=== PATIENT | female | born 1955 | race Caucasian/White ===

== ENCOUNTER → 2018-10-14 | Outpatient (CLI) | payer BC ==
--- NOTE | 2018-10-14 14:49 | KCIC ---
MR of the right wrist HISTORY: Acute right wrist pain. Fell 10 days ago landing on right wrist. Fracture. TECHNIQUE: Routine multiplanar sequences are obtained. FINDINGS: Comminuted fracture of the distal radius is identified. No gross displacement. Disc of the triangular fibrocartilage is intact. There is some heterogeneity at the lamina, likely degenerative, possible partial tears. The extensor carpi ulnaris tendon is surrounded by mild fluid with mild internal signal. Mild fluid within the second and third extensor compartments. Flexor tendons are intact. Median nerve unremarkable. No evidence of scapholunate or lunotriquetral ligament tear. Slight dorsal tilt of the lunate. No large joint effusion. There is intramuscular and soft tissue edema/contusion about the distal radial fracture. Subchondral cystic change and edema at the proximal medial lunate bone, may indicate ulnolunate impaction. IMPRESSION: 1. Comminuted nondisplaced fracture of the distal radius. 2. Heterogeneous signal at the lamina of the triangle fibrocartilage, at least raising the question of partial tear or sprain. 3. Mild tendon sheath fluid or tenosynovitis of extensor compartments. 4. Subchondral edema and cystic changes at the proximal medial lunate, a finding which can be associated with ulnolunate impaction. Electronically signed by: Juan Carrasco MD (10/14/2018 2:46 PM) [facility]
== END | disposition home or self-care (01) ==
LOC: KCIC MRI 08:16
PROVIDERS: ATTEND Physician Assistant Medical
DX: S52.591A Other fractures of lower end of right radius, initial encounter for closed fracture (principal); M85.641 Other cyst of bone, right hand; R60.0 Localized edema; W19.XXXA Unspecified fall, initial encounter; Y93.89 Activity, other specified; Y92.89 Other specified places as the place of occurrence of the external cause; Y99.8 Other external cause status
CPT/HCPCS: 73221

== ENCOUNTER 2020-02-11 09:45 | Inpatient (IN) | payer MEDICARE, BC ==
[~2020-02-11] VITALS: Ht 167.6 cm; Wt 95.7 kg
[2020-02-11 09:15] VITALS: BP 137/75
[~2020-02-11 09:45] MED LIST: AMIO200T4 PO; APIX5TAB PO; ASPI-630 PO; BIOT5000 PO; CA C1TAB58 PO; CRAN250C PO; CYAN-25 PO; CYCL5TAB PO; DOCU-153 PO; FENO160T PO; LACT1CAP19 PO; LISI1TAB37 PO; METO50TA6 PO; MULT1TAB68 PO; MV C PO; OMEG1CAP50 PO; OXYC1TAB15 PO; PANT40TA77 PO; POTA20TA4 PO; SELE200C PO; VITA400C37 PO; [UNRECOGNIZED DRUG - CODE] PO
--- NOTE | 2020-02-11 11:32 | NUR ---
Patient Lorena Araiza 64 year old female, admitted due to hemorrhagic pancreatitis. She's awake, alert, oriented x4, on room air; arrived via gurney by EMS. Belongings have been checked. Patient was placed on comfortable position, call light placed within reach.
[2020-02-11 11:38] VITALS: BP 141/77
[2020-02-11] MEDS ORDERED: POTASSIUM CL 20MEQ D5-0.45NACL 1,000 ML IV ONE (13:00)
[2020-02-11] MEDS ORDERED: DEXTROSE 50% 25 GM / 50ML DISP.SYRIN. IV PRN (13:00)
--- NOTE | 2020-02-11 13:30 | PDOC2 ---
CONSULT Date of Consult Date of Consult DATE: 02/11/20 TIME: 13:28 Reason for Consult Reason for Consult: Pancreatitis with possible hemorrhagic psudocyst Past Medical History Cardiovascular: HTN Musculoskeletal: low back pain, Osteoarthritis Rheumatologic: No pertinent hx Infectious disease: No pertinent hx Renal/: No pertinent hx Endocrine: No pertinent hx Past Surgical History Past Surgical History: Total knee replacement, Hysterectomy Family History Family History: High Cholestrol, Hypertension Social History ALCOHOL: none Drugs: None Current Medications Current Medications Current Medications Amiodarone HCl (Cordarone) 200 mg DAILY PO ; Start 02/12/20 at 09:00 Cyanocobalamin (Vitamin B-12) 1,000 mcg DAILY PO ; Start 02/12/20 at 09:00 Docusate Sodium (Colace) 100 mg BID PO ; Start 02/11/20 at 21:00 Lactobacillus Rhamnosus (Culturelle) 1 cap BID PO ; Start 02/11/20 at 21:00 Metoprolol Tartrate (Lopressor) 50 mg BID PO ; Start 02/11/20 at 21:00 Potassium Chloride/Dextrose/ Sod Cl 1,000 ml @ 80 mls/hr 1X ONCE IV ; Start 02/11/20 at 13:00; Stop 02/12/20 at 01:29 Pantoprazole Sodium (PROTONIX VIAL for IV PUSH) 40 mg DAILYAC IVP ; Start 02/12/20 at 07:30 Fentanyl Citrate (Fentanyl 2ml Vial) 50 mcg PRN Q3HRS PRN IVP PAIN; Start 02/11/20 at 13:00 Ondansetron HCl (Zofran) 4 mg PRN Q4HRS PRN IVP NAUSEA/VOMITING; Start 02/11/20 at 13:00 Insulin Human Lispro (HumaLOG) 0-7 UNITS Q6HRS SQ ; Start 02/11/20 at 18:00 Dextrose (Dextrose 50%-Water Syringe) 12.5 gm PRN Q15MIN PRN IV SEE COMMENTS; Start 02/11/20 at 13:00 Active Scripts Active Culturelle (Lactobacillus Rhamnosus Gg) 1 Each Cap.sprink 1 Cap PO BID 30 Days Pantoprazole Sodium (Pantoprazole Sodium) 40 Mg Tablet.dr 40 Mg PO DAILYAC 30 Days Dok (Docusate Sodium) 100 Mg Capsule 100 Mg PO BID 30 Days Percocet 5-325 Mg Tablet (Oxycodone/Acetaminophen) 1 Each Tablet 1 Tab PO PRN Q4HRS PRN 7 Days Metoprolol Tartrate 50 Mg Tablet 50 Mg PO BID 30 Days Amiodarone Hcl 200 Mg Tablet 200 Mg PO DAILY 30 Days Eliquis (Apixaban) 5 Mg Tablet 5 Mg PO BID 30 Days Reported Vitamin E (Vitamin E Acetate) 400 Unit Capsule 400 Unit PO TWICE WEEKLY Biotin 5,000 Mcg Tab.rapdis 10,000 Mcg PO TWICE WEEKLY Calcium Magnesium Caplet (Ca Carb & Gluc/Mag Ox & Gluc) 1 Each Tablet 1 Tab PO DAILY 30 Days Selenium 200 Mcg Capsule 1 Cap PO DAILY 30 Days Fish Oil 1,000 Mg Softgel ([place]-3 Fatty Acids/Fish Oil) 1 Each Capsule 4 Cap PO DAILY 30 Days Cranberry (Cranberry Extract) 250 Mg Capsule 250 Mg PO DAILY Stress Formula (Multivits,Stress Formula) 1 Each Tablet 1 Each PO DAILY Vitamin B-12 (Cyanocobalamin (Vitamin B-12)) 1,000 Mcg Tablet 1 Tab PO DAILY 30 Days Abc Complete Senior Women Cplt (Bt-Tutm-Lvlc/Iron/Folic/K1/Lut) 1 Each Tablet 1 Each PO DAILY Lysine 1,000 Mg Tablet 1,000 Mg PO DAILY Aspirin 81 Mg Tab.chew 1 Tab PO DAILY Fenofibrate 160 Mg Tablet 1 Tab PO DAILY Allergies Allergies: Coded Allergies: No Known Drug Allergies (Unverified , 01/13/20) Vitals VITALS Vital Signs Date Time Temp Pulse Resp B/P (MAP) Pulse Ox O2 Delivery O2 Flow Rate FiO2 02/11/20 11:38 98.2 78 16 141/77 (98) 96 Room Air 98.2 Assessment/Plan Assessment/Plan Pancreatitis- with possible pseudocyst bleed Plan hold eliquis serial CBC TPN surgery and IR consultsfor possible embolization and/or eventual drainage NANY DIAZ MD Feb 11, 2020 13:30
--- NOTE | 2020-02-11 13:33 | HP ---
ADMIT DATE: 02/11/2020 HISTORY OF PRESENT ILLNESS: The patient is a 64-year-old female patient who presented to the Emergency Room of [facility] with a complaint of severe chest pain, mostly in the left upper quadrant and epigastric area that is aggravated by moving and taking a deep breath that she described as a knife stick. She apparently has been followed before by Dr. Nobles, has had a cholecystectomy done on 01/13/2020. Apparently, at that time, she was also diagnosed with pancreatitis and has had also cardiac arrhythmias, followed by Dr. Hayes. She has had monitoring specialist and that she has mailed to Dr. Hayes's office and she was supposed to see him on 03/05/2020. She was basically evaluated in the Emergency Room of [facility] and her lab work showed that she has a normochromic normocytic anemia. Her chemistry showed her serum lipase was extremely high at 2400 and D-dimer was high at 5.39. Urinalysis was unremarkable and showed only mild proteinuria and hematuria, but no leukocyturia. Her toxic screen was essentially negative. While in the Emergency Room, she has had chest x-ray which showed no confluent infiltrate, no evidence of obstruction and a 3 mm left upper pole renal calculus. She did have CT scan of the chest, abdomen and pelvis with contrast, finding showed that there is a heterogeneously hypoattenuating collection occupies the site of the pancreatic duct and tail, consistent with hemorrhagic pancreatitis. It measures 14 x 7 cm. Actually, there is mild mass effect on the adjacent greater curvature of the stomach. The splenic vein is decompressed, but remains patent. Normal enhancing pancreatic along the head, but the remainder is hypoenhancing or difficult to identify. There is no clear pseudoaneurysm. Another small fluid collection along the lateral aspect of the gastric greater curvature measures 5 x 2.3 cm. There is also secondary wall thickening of the colonic splenic flexure. The gallbladder is surgically absent. The common duct measures 9 mm, it tapers normally distally. The adrenal glands are unremarkable. Left renal calculus measures 5 mm. The right kidney is unremarkable. There are no pathologically enlarged lymph nodes. The appendix is at the upper limit of normal caliber. There is small amount of adjacent fluid, but this is likely secondary to small pelvic ascites. The uterus is surgically absent. There is no small-bowel obstruction. The CT scan of the chest showed no pulmonary embolism or aortic dissection or aneurysm. Findings are consistent with distal esophagitis and, therefore, the patient was transferred to [facility] to consult the Gastroenterology team. PAST MEDICAL HISTORY: Significant for hypertension, chronic low back pain, osteoarthritis, chronic kidney disease, and hyperlipidemia. She has also had gallstone pancreatitis. PAST SURGICAL HISTORY: Significant for right total knee arthroplasty, back surgery, total abdominal hysterectomy, bilateral salpingo-oophorectomy, left shoulder surgery, cholecystectomy. ALLERGIES: She apparently has no known drug allergies. MEDICATIONS: She is currently on following medications: She is on apixaban 5 mg twice a day, amiodarone 200 mg twice a day, fenofibrate 160 mg daily, omega-3 fatty acid fish oil 4 capsules daily, she is on metoprolol tartrate 50 mg twice a day, aspirin 81 mg once a day, oxycodone/APAP 5/325 one tablet every 4 hours, she is on calcium carbonate one tablet daily, selenium 200 mcg capsules once a day, niacin 1000 mg once a day, Colace 100 mg twice a day, Protonix 40 mg daily, lactobacillus rhamnosus 1 capsule twice a day, Biotin 5000 mcg once a day, she is on cyanocobalamin 1000 mcg tablet once a day, vitamin D 400 units twice a week, multivitamin stress formula one tablet once a day, ABC Complete Senior Women one tablet once a day, cranberry extract 250 mg once a day. FAMILY HISTORY: She has one brother younger, has diabetes. One sister younger and healthy. Father at the age of 81 because of Alzheimer disease. Mother at age of 68 because of complication of diabetes. SOCIAL HISTORY: She is , has 2 daughters. She never smoked, does not drink alcohol or use any recreational drugs. She worked at the [employer] at [place] for 34 years. She is currently retired. REVIEW OF SYSTEMS: As per history of present illness. PHYSICAL EXAMINATION: GENERAL: On arrival to the Emergency Room of [facility], she was somewhat pale, but no jaundice, cyanosis or thyromegaly. No jugular venous distension. No lower limb edema. VITAL SIGNS: Her heart rate was 87, blood pressure was 144/75, temperature was 98.5, respiratory rate was 18, and oxygen saturation 100% on room air. HEAD, EYES, EARS, NOSE AND THROAT: Showed normocephalic, atraumatic. NECK: Supple. HEART: Showed normal first and second heart sounds. No gallop, rub or murmur. CHEST: Shows central trachea, equal bilateral expansion, air entry, vesicular sounds. I could not appreciate any crepitation or rhonchi. ABDOMEN: Distended with tenderness mostly in the left upper quadrant. No masses. No palpable pulsatile masses. Recent surgical scars are healing well. Did have rebound in the left upper quadrant. NEUROLOGIC: She is awake, alert, responding appropriately. All cranial nerves intact. EXTREMITIES: She moves extremities without difficulty. Psychologically, she is somewhat anxious; however, the judgment and mood are normal. LABORATORY DATA: Her EKG showed that she was in sinus rhythm at a rate of 79 beats per minute with occasional PVCs and PACs. No finding of acute STEMI. Her imaging studies; CT scan of the chest, abdomen and pelvis basically showed the patient's finding consistent with hemorrhagic pancreatitis heterogenous hypoattenuating collection occupying the site of the pancreatic body and tail and measures 14 x 7 cm. She has secondary inflammation of the colon, splenic flexure on the greater curvature of the stomach and splenic vein is compressed, but patent. No pulmonary embolism, no aortic dissection or aneurysm. Finding was consistent with distal esophagitis. There is mild extrahepatic biliary dilatation, status post cholecystectomy. PLAN: My plan is obviously to keep her n.p.o., start her on IV fluid and IV pain medication as well as Protonix. I will consult the Gastroenterology team as well as the trolley operator. BRIE RODRIGUEZ MD DR: NOELLE/hector JOB#: [id number] / [id number]
[2020-02-11] MEDS: TPN PER PHARMACY MC PRN (14:27)
[2020-02-11] MEDS: IV NORMAL SALINE 1000ML BAG 1,000 ML IV SCH (14:30)
--- NOTE | 2020-02-11 14:32 | NUR ---
Pharmacy TPN Dosing Note S: MICK CAMPOS is a 64 year old F Currently receiving Central Continuous TPN started 02/11/20 B:Pertinent PMH: NPO, Pancreatitis Current diet: NPO LABS: Sodium: 140 Potassium: 4.0 Chloride: 104 Calcium: 8.7 Corrected Calcium: 9.34 Magnesium: 1.9 CO2: 27 SCr: 1.1 Glucose: 148 Albumin: 3.2 AST: 35 ALT: 24 TPN FORMULA: TPN TYPE: Central Continuous AMINO ACIDS: 60 gm DEXTROSE: 195 gm LIPIDS: 20 gm SODIUM CHLORIDE: 90 mEq SODIUM ACETATE: - mEq SODIUM PHOSPHATE: - mmol POTASSIUM CHLORIDE: 50 mEq POTASSIUM ACETATE: - mEq POTASSIUM PHOSPHATE: 13.6 mmol MAGNESIUM: 10 mEq CALCIUM: 10 mEq INSULIN: - units MULTIPLE VITAMIN: 10 ml TRACE ELEMENTS: 1 ml ml(s) TPN PLAN: 02/10 AM Labs from [facility] R: Begin TPN tonight at 2200. Will monitor electrolytes, glucose, and tolerance to TPN. KEYUR LAMAR [facility], 02/11/20 [id number]
[2020-02-11 15:30] VITALS: BP 139/75
--- NOTE | 2020-02-11 16:24 | NUR ---
Called lab at 1624, asked about labs to be drawn. This nurse was told that another safety security officer is coming at 1700 since they were unable to get specimen from the patient earlier. Notified that a PICC line will be placed and will need test results.
--- NOTE | 2020-02-11 16:53 | CONS ---
DATE OF CONSULTATION: 02/11/2020 REASON FOR CONSULTATION: Hemorrhagic pancreatitis. HISTORY OF PRESENT ILLNESS: This 64-year-old female, whose past medical history is significant for organic heart disease, pernicious anemia, hyperlipidemia, recent pancreatitis requiring laparoscopic cholecystectomy, was admitted with increasing abdominal and chest pain, subsequently found on imaging to have pancreatic pseudocyst with possible pseudoaneurysm or fluid collection, and admitted due to possible gastric outlet obstruction with inability to tolerate oral, nausea, and vomiting as well as pain with inspiration. Imaging was reviewed from [facility], not presently in front of me at the time of dictation, but a large fluid collection was encountered. The patient's vital signs presently are stable. She will be made [id number] with consultations with Surgery and with Interventional Radiology in the next 24-48 hours to help with the assist in management of the findings with possible embolization of the pseudoaneurysm at present at some point. She otherwise is comfortable and has lost 15 pounds due to poor oral intake and is relieved that an explanation has been found. PAST MEDICAL/SURGICAL HISTORY: Significant for organic heart disease, pernicious anemia, pancreatitis, status post laparoscopic cholecystectomy as well as hyperlipidemia. ALLERGIES: None. MEDICATIONS: On admission include amiodarone, Eliquis, aspirin, biotin, docusate, fenofibrate, lactobacillus, lysine, metoprolol, omega 3, pantoprazole, and selenium. SOCIAL HISTORY: She is retired; does not drink or smoke. FAMILY HISTORY: Noncontributory. REVIEW OF SYSTEMS: As above. PHYSICAL EXAMINATION: GENERAL: Reveals a thin female. VITAL SIGNS: Afebrile, temperature 98.2, pulse 78, respiration 18, and blood pressure 141/77. LUNGS: Clear. CARDIOVASCULAR: Reveals S1, S2 without S3, S4, or appreciable murmur. ABDOMEN: Reveals a soft abdomen with epigastric tenderness to deep palpation without appreciable bruits. EXTREMITIES: Reveal no cyanosis, clubbing, or edema. LABORATORY STUDIES: Pending here with repeat hemoglobin from her [facility] admission. IMPRESSION AND PLAN: Pancreatitis with possible pseudocyst and pseudoaneurysm. We will recommend [id number], blood thinners, TPN, Interventional Radiology and surgical consultations for additional management as embolization of the pseudoaneurysm present will be needed at some point as well as potential drainage, which could be performed either here at this hospital or potentially [facility], which is a tertiary referral center. NANY DIAZ MD DR: Fatou JOB#: [id number] / [id number]
[2020-02-11] MEDS: fentaNYL PF VIAL 100 MCG/2 ML VIAL IVP PRN ×2 (16:54→22:30)
--- NOTE | 2020-02-11 17:21 | PDOC2 ---
CONSULT Date of Consult Date of Consult DATE: 02/11/20 TIME: 17:16 Reason for Consult Reason for Consult: pancreatitis Referring Physician Referring Physician: Dr Nobles Identification/Chief Complaint Chief Complaint epigastric pain Source Source: Chart review, Patient History of Present Illness Reason for Visit: Lorena is a 64 yo female I know from recent (01/13/20) cholecystectomy for gallstone pancreatitis. She did well post op and I saw her in follow up in the office. She has had some pain and when seen in the [facility] ED a CT showed pancreatitis Past Medical History Cardiovascular: HTN Musculoskeletal: low back pain, Osteoarthritis Rheumatologic: No pertinent hx Infectious disease: No pertinent hx Renal/: No pertinent hx Endocrine: No pertinent hx Past Surgical History Past Surgical History: Cholecystectomy, Total knee replacement, Hysterectomy Family History Family History: High Cholestrol, Hypertension Social History No ALCOHOL: none Drugs: None Current Medications Current Medications Current Medications Amiodarone HCl (Cordarone) 200 mg DAILY PO ; Start 02/12/20 at 09:00 Cyanocobalamin (Vitamin B-12) 1,000 mcg DAILY PO ; Start 02/12/20 at 09:00 Docusate Sodium (Colace) 100 mg BID PO ; Start 02/11/20 at 21:00 Lactobacillus Rhamnosus (Culturelle) 1 cap BID PO ; Start 02/11/20 at 21:00; Stop 02/11/20 at 14:34; Status DC Metoprolol Tartrate (Lopressor) 50 mg BID PO ; Start 02/11/20 at 21:00 Potassium Chloride/Dextrose/ Sod Cl 1,000 ml @ 80 mls/hr 1X ONCE IV Last administered on 02/11/20at 13:43; Start 02/11/20 at 13:00; Stop 02/12/20 at 01:29 Pantoprazole Sodium (PROTONIX VIAL for IV PUSH) 40 mg DAILYAC IVP ; Start 02/12/20 at 07:30 Fentanyl Citrate (Fentanyl 2ml Vial) 50 mcg PRN Q3HRS PRN IVP PAIN Last administered on 02/11/20at 16:54; Start 02/11/20 at 13:00 Ondansetron HCl (Zofran) 4 mg PRN Q4HRS PRN IVP NAUSEA/VOMITING; Start 02/11/20 at 13:00 Insulin Human Lispro (HumaLOG) 0-7 UNITS Q6HRS SQ ; Start 02/11/20 at 18:00 Dextrose (Dextrose 50%-Water Syringe) 12.5 gm PRN Q15MIN PRN IV SEE COMMENTS; Start 02/11/20 at 13:00 Info (Tpn Per Pharmacy) 1 each PRN DAILY PRN MC SEE COMMENTS Last administered on 02/11/20at 14:27; Start 02/11/20 at 15:00 Sodium Chloride 1,000 ml @ 75 mls/hr [id number] IV ; Start 02/11/20 at 14:30 Sodium Chloride 90 meq/Potassium Chloride 50 meq/ Potassium Phosphate 13.6 mmol/Magnesium Sulfate 10 meq/ Calcium Gluconate 10 meq/ Multivitamins 10 ml/Chromium/ Copper/Manganese/ Seleni/Zn 1 ml/ Total Parenteral Nutrition/Amino Acids/Dextrose/ Fat Emulsion Intravenous 1,512 ml @ 63 mls/hr TPN CONT IV ; Start 02/11/20 at 22:00; Stop 02/12/20 at 21:59 Active Scripts Active Culturelle (Lactobacillus Rhamnosus Gg) 1 Each Cap.sprink 1 Cap PO BID 30 Days Pantoprazole Sodium (Pantoprazole Sodium) 40 Mg Tablet.dr 40 Mg PO DAILYAC 30 Days Dok (Docusate Sodium) 100 Mg Capsule 100 Mg PO BID 30 Days Percocet 5-325 Mg Tablet (Oxycodone/Acetaminophen) 1 Each Tablet 1 Tab PO PRN Q4HRS PRN 7 Days Metoprolol Tartrate 50 Mg Tablet 50 Mg PO BID 30 Days Amiodarone Hcl 200 Mg Tablet 200 Mg PO DAILY 30 Days Eliquis (Apixaban) 5 Mg Tablet 5 Mg PO BID 30 Days Reported Vitamin E (Vitamin E Acetate) 400 Unit Capsule 400 Unit PO TWICE WEEKLY Biotin 5,000 Mcg Tab.rapdis 10,000 Mcg PO TWICE WEEKLY Calcium Magnesium Caplet (Ca Carb & Gluc/Mag Ox & Gluc) 1 Each Tablet 1 Tab PO DAILY 30 Days Selenium 200 Mcg Capsule 1 Cap PO DAILY 30 Days Fish Oil 1,000 Mg Softgel ([place]-3 Fatty Acids/Fish Oil) 1 Each Capsule 4 Cap PO DAILY 30 Days Cranberry (Cranberry Extract) 250 Mg Capsule 250 Mg PO DAILY Stress Formula (Multivits,Stress Formula) 1 Each Tablet 1 Each PO DAILY Vitamin B-12 (Cyanocobalamin (Vitamin B-12)) 1,000 Mcg Tablet 1 Tab PO DAILY 30 Days Abc Complete Senior Women Cplt (Gc-Dhlq-Bexg/Iron/Folic/K1/Lut) 1 Each Tablet 1 Each PO DAILY Lysine 1,000 Mg Tablet 1,000 Mg PO DAILY Aspirin 81 Mg Tab.chew 1 Tab PO DAILY Fenofibrate 160 Mg Tablet 1 Tab PO DAILY Allergies Allergies: Coded Allergies: No Known Drug Allergies (Unverified , 01/13/20) ROS Review of System negative with exception of present complaints Physical Exam General: Alert, Oriented X3, No acute distress HEENT: Atraumatic Lungs: Normal air movement Heart: Regular rate Abdomen: Soft, Other (minimally TTP in the epigastrium) Vitals VITALS Vital Signs Date Time Temp Pulse Resp B/P (MAP) Pulse Ox O2 Delivery O2 Flow Rate FiO2 02/11/20 16:54 18 94 02/11/20 15:30 98.0 84 139/75 (96) Room Air 98.0 Labs Labs ordered, results PND Images Images CT done @ [facility] reviewed Assessment/Plan Assessment/Plan pancreatitis s/p cholecystectomy no acute surgical recs gut rest TPN as per GI serial labs if indications of hemorrhagic changes as IR to evaluate will follow Thanks for consult VINAY SANCHEZ MD Feb 11, 2020 17:21
[2020-02-11 17:27] LABS: HEMATOCRIT 31.6 % (36.0-47.0); HEMOGLOBIN 10.8 g/dL (12.0-15.5); RED BLOOD COUNT 3.39 x10^6/uL (3.50-5.40); RED CELL DISTRIBUTION WIDTH 13.8 % (11.5-14.5)
[2020-02-11 17:40] LABS: CALCIUM 7.9 mg/dL (8.5-10.1); GFR 55.6; POTASSIUM 3.6 mmol/L (3.5-5.1)
[2020-02-11 17:46] LABS: ALBUMIN 2.7 g/dL (3.4-5.0); ALBUMIN/GLOBULIN RATIO 0.8 (1.0-1.7); TOTAL BILIRUBIN 0.7 mg/dL (0.2-1.0); TOTAL PROTEIN 6.1 g/dL (6.4-8.2)
[2020-02-11] MEDS: INSULIN LISPRO 300 UNITS/3 ML VIAL. SQ SCH (18:00)
[2020-02-11 19:00] VITALS: BP 132/75
[2020-02-11] MEDS: DOCUSATE SODIUM 100 MG CAPSULE. PO SCH (19:49)
[2020-02-11] MEDS: METOPROLOL TART IMMED RELEASE 50 MG TABLET. PO SCH (21:00)
[2020-02-11] MEDS ORDERED: LACTOBACILLUS RHAMNOSUS GG 1 CAPSULE. PO SCH (21:00)
[2020-02-11] MEDS ORDERED: TOTAL PARENTERAL NUTRITION 1,424.9614 ML, AMINO ACID 15% 60 GM, DEXTROSE 70 % IN WATER ... IV SCH (22:00)
[2020-02-11 23:20] VITALS: BP 120/63
--- NOTE | 2020-02-11 23:27 | RAD ---
CHEST AP ONLY INDICATION: Reason: line placement #[id number] / Spl. Instructions: / History: . COMPARISON STUDY: 01/12/2020. FINDINGS: Right PICC courses into the neck and off the superior [id number] Lungs: Low lung volume. Minimal bibasilar opacities. The tracheobronchial tree and hilar structures are normal. Pleura: No pleural effusion or pneumothorax. Heart and Mediastinum: The cardiomediastinal silhouette is normal. The great vessels of the thorax are normal. IMPRESSION: Right PICC courses into the neck and off the superior [id number]. PICC position was called to the patient's nurse, Bunny, at 11:20 PM on 02/11/2020. She reports that this has already been repositioned with additional radiograph pending. Electronically signed by: Delfin Todd MD (02/11/2020 11:24 PM) [id number]
--- NOTE | 2020-02-12 02:47 | RAD ---
EXAM: CHEST 1 VIEW History: PICC line placement COMPARISON: 02/11/2020 TECHNIQUE: Single portable radiograph of the chest Findings/ impression: The cardiac silhouette is unremarkable. The right-sided PICC line tip projects in the right subclavian region. Minimal bibasilar lung atelectasis or infiltrates. Patient's nurse was informed of the PICC line position. Electronically signed by: Emir Borges MD (02/12/2020 2:44 AM) [id number]
[2020-02-12] MEDS: IV NORMAL SALINE 1000ML BAG 1,000 ML IV SCH ×2 (02:55→16:59)
[2020-02-12 03:05] VITALS: BP 121/63
[2020-02-12 05:51] LABS: MAGNESIUM 1.7 mg/dL (1.8-2.4); PHOSPHORUS 2.7 mg/dL (2.6-4.7)
[2020-02-12 05:58] LABS: ALBUMIN 2.5 g/dL (3.4-5.0); ALBUMIN/GLOBULIN RATIO 0.9 (1.0-1.7); CALCIUM 7.8 mg/dL (8.5-10.1); CREATININE 0.9 mg/dL (0.6-1.0); GFR 62.8; POTASSIUM 3.8 mmol/L (3.5-5.1); TOTAL BILIRUBIN 0.7 mg/dL (0.2-1.0); TOTAL PROTEIN 5.3 g/dL (6.4-8.2)
[2020-02-12] MEDS: INSULIN LISPRO 300 UNITS/3 ML VIAL. SQ SCH ×4 (06:00→18:00)
[2020-02-12 07:30] VITALS: BP 120/69
[2020-02-12] MEDS: fentaNYL PF VIAL 100 MCG/2 ML VIAL IVP PRN ×4 (08:47→22:38)
[2020-02-12] MEDS: PANTOPRAZOLE IV PUSH 40 MG VIAL. IVP SCH (08:51)
[2020-02-12] MEDS: CYANOCOBALAMIN (VITAMIN B-12) 1,000 MCG TABLET. PO SCH (08:51)
[2020-02-12] MEDS: METOPROLOL TART IMMED RELEASE 50 MG TABLET. PO SCH ×2 (08:52→21:00)
[2020-02-12] MEDS: DOCUSATE SODIUM 100 MG CAPSULE. PO SCH ×2 (08:52→20:56)
[2020-02-12] MEDS: AMIODARONE HCL 200 MG TABLET. PO SCH (08:52)
--- NOTE | 2020-02-12 09:46 | RAD ---
AP chest x-ray COMPARISON: Chest x-ray February 12, 2020 1:40 AM. HISTORY: PICC line placement. FINDINGS: Right PICC line tip distal SVC, the guidewire still remains within the catheter at the subclavian segment. Heart size normal. No no pneumothorax or pulmonary opacities. There could be a small left pleural effusion along the left lateral diaphragm blunting the angle new from the prior study. Bones are unremarkable. IMPRESSION: 1. Small left pleural effusion along the lateral diaphragm. 2. Right PICC line as described above. These results were called to patient's sixth floor nurse [facility] at 9:40 AM February 12, 2020. Electronically signed by: Jaspal Farmer MD (02/12/2020 9:43 AM) [facility]
--- NOTE | 2020-02-12 10:56 | PN ---
DATE: 02/12/2020 SUBJECTIVE: The patient is resting slightly propped up in bed comfortably. Denied any abdominal pain. She has had a double lumen PICC line placed successfully and will be started on TPN. PHYSICAL EXAMINATION: GENERAL: On examining her, she looked well and was clearly in no apparent respiratory distress and pale. No jaundice, cyanosis or thyromegaly. No jugular venous distention. No limb edema. VITAL SIGNS: Her heart rate was 86, blood pressure was 120/69, temperature was 98, respiratory rate was 18, and oxygen saturation was 95% on room air. HEAD, EYES, EARS, NOSE AND THROAT: Showed normocephalic, atraumatic. NECK: Supple. HEART: Showed normal first and second heart sounds. No gallop or murmur. CHEST: Clear to auscultation. No crepitation or rhonchi. ABDOMEN: Distended, soft, nontender. NEUROLOGIC: She is grossly intact. Her intake and output are incompletely recorded. LABORATORY DATA: Her lab work this morning showed a serum sodium 138, potassium 3.8, chloride 105, bicarbonate 22, anion gap of 11, BUN 9, creatinine 0.9, estimated GFR was 62 mL per minute. Her glucose 128, calcium was 7.8, phosphorus 2.7, magnesium was 1.7. Total bilirubin, AST, ALT are normal. Total protein 5.3, albumin 2.6. Serum lipase was high at 489 and triglycerides were 68. As of yesterday, her white cell count was 8000, hemoglobin 11, hematocrit 31, MCV 93, and platelet count 264,000. ASSESSMENT: Hemorrhagic pancreatitis with pseudocyst and pseudoaneurysm. She was seen by Dr. Nobles and the plan is to keep her n.p.o. She is now on TPN. She did have a PICC line placed successfully. Meanwhile, we will continue with pain management. She is on fentanyl 50 mcg every 3 hours. She is also on Protonix IV daily and amiodarone for her atrial fibrillation. BRIE RODRIGUEZ MD DR: NOELLE/hector JOB#: [id number] / [id number]
[2020-02-12 11:01] LABS: HEMATOCRIT 29.5 % (36.0-47.0); HEMOGLOBIN 9.9 g/dL (12.0-15.5); RED BLOOD COUNT 3.1 x10^6/uL (3.50-5.40)
[2020-02-12 11:28] VITALS: BP 127/70
[2020-02-12] MEDS: TPN PER PHARMACY MC PRN ×2 (11:43→12:53)
--- NOTE | 2020-02-12 12:55 | NUR ---
Pharmacy TPN Dosing Note S: MICK CAMPOS is a 64 year old F Currently receiving Central Continuous TPN started 02/11/20 B:Pertinent PMH: NPO, Pancreatitis Height: 5 feet, 6 inches Weight: 96.1 kg Current diet: NPO LABS: Sodium: 138 Potassium: 3.8 Chloride: 105 Calcium: 7.8 Corrected Calcium: 9.00 Magnesium: 1.7 CO2: 22 SCr: 1.1 Glucose: 128 Albumin: 2.5 AST: 35 ALT: 24 TPN FORMULA: TPN TYPE: Central Continuous AMINO ACIDS: 60 gm DEXTROSE: 195 gm LIPIDS: 20 gm SODIUM CHLORIDE: 110 mEq SODIUM ACETATE: - mEq SODIUM PHOSPHATE: - mmol POTASSIUM CHLORIDE: - mEq POTASSIUM ACETATE: 70 mEq POTASSIUM PHOSPHATE: 17 mmol MAGNESIUM: 14 mEq CALCIUM: 10 mEq INSULIN: - units MULTIPLE VITAMIN: 10 ml TRACE ELEMENTS: 1 ml ml(s) TPN PLAN: INCREASE NACL TO 110 MEQ, KACETATE TO 70 MEQ, KPHOS TO 17 MEQ, MAGSO4 14 MEQ R: Continue TPN AT 63 ML/HR Will monitor electrolytes, glucose, and tolerance to TPN. ROGERS PAGE [facility], 02/12/20 [id number]
--- NOTE | 2020-02-12 13:20 | PDOC2 ---
CONSULT Date of Consult Date of Consult DATE: 02/12/20 TIME: 13:20 Reason for Consult Reason for Consult: Paroxysmal atrial fibrillation Referring Physician Referring Physician: Dr. Howard Identification/Chief Complaint Chief Complaint Epigastric pain Source Source: Chart review, Patient History of Present Illness Reason for Visit: 64-year-old female who recently underwent cholecystectomy on 01/13/2020 presented to [facility] with epigastric and abdominal pain. CT scan showed hemorrhagic pancreatitis and has she was transferred to [facility] for further evaluation by general surgery and gastroenterology teams. She was diagnosed with paroxysmal atrial fibrillation last admission and was placed on amiodarone for rhythm maintenance and Eliquis for stroke prophylaxis. She presently denied any chest pain, orthopnea, palpitations or syncope. Past Medical History Cardiovascular: AFIB, HTN Musculoskeletal: low back pain, Osteoarthritis Rheumatologic: No pertinent hx Infectious disease: No pertinent hx Renal/: No pertinent hx Endocrine: No pertinent hx Past Surgical History Past Surgical History: Cholecystectomy, Total knee replacement, Hysterectomy Family History Family History: High Cholestrol, Hypertension Social History No ALCOHOL: none Drugs: None Current Medications Current Medications Current Medications Amiodarone HCl (Cordarone) 200 mg DAILY PO Last administered on 02/12/20at 08:52; Start 02/12/20 at 09:00 Cyanocobalamin (Vitamin B-12) 1,000 mcg DAILY PO Last administered on 02/12/20at 08:51; Start 02/12/20 at 09:00 Docusate Sodium (Colace) 100 mg BID PO Last administered on 02/12/20at 08:52; Start 02/11/20 at 21:00 Lactobacillus Rhamnosus (Culturelle) 1 cap BID PO ; Start 02/11/20 at 21:00; Stop 02/11/20 at 14:34; Status DC Metoprolol Tartrate (Lopressor) 50 mg BID PO Last administered on 02/12/20at 08:52; Start 02/11/20 at 21:00 Potassium Chloride/Dextrose/ Sod Cl 1,000 ml @ 80 mls/hr 1X ONCE IV Last administered on 02/11/20at 13:43; Start 02/11/20 at 13:00; Stop 02/12/20 at 01:29; Status DC Pantoprazole Sodium (PROTONIX VIAL for IV PUSH) 40 mg DAILYAC IVP Last administered on 02/12/20at 08:51; Start 02/12/20 at 07:30 Fentanyl Citrate (Fentanyl 2ml Vial) 50 mcg PRN Q3HRS PRN IVP PAIN Last administered on 02/12/20at 11:38; Start 02/11/20 at 13:00 Ondansetron HCl (Zofran) 4 mg PRN Q4HRS PRN IVP NAUSEA/VOMITING; Start 02/11/20 at 13:00 Insulin Human Lispro (HumaLOG) 0-7 UNITS Q6HRS SQ ; Start 02/11/20 at 18:00 Dextrose (Dextrose 50%-Water Syringe) 12.5 gm PRN Q15MIN PRN IV SEE COMMENTS; Start 02/11/20 at 13:00 Info (Tpn Per Pharmacy) 1 each PRN DAILY PRN MC SEE COMMENTS Last administered on 02/12/20at 12:53; Start 02/11/20 at 15:00 Sodium Chloride 1,000 ml @ 75 mls/hr [id number] IV Last administered on 02/12/20at 02:55; Start 02/11/20 at 14:30 Sodium Chloride 90 meq/Potassium Chloride 50 meq/ Potassium Phosphate 13.6 mmol/Magnesium Sulfate 10 meq/ Calcium Gluconate 10 meq/ Multivitamins 10 ml/Chromium/ Copper/Manganese/ Seleni/Zn 1 ml/ Total Parenteral Nutrition/Amino Acids/Dextrose/ Fat Emulsion Intravenous 1,512 ml @ 63 mls/hr TPN CONT IV ; Start 02/11/20 at 22:00; Stop 02/12/20 at 21:59 Sodium Chloride 110 meq/Potassium Acetate 70 meq/ Potassium Phosphate 17 mmol/ Magnesium Sulfate 14 meq/Calcium Gluconate 10 meq/ Multivitamins 10 ml/Chromium/ Copper/Manganese/ Seleni/Zn 1 ml/ Total Parenteral Nutrition/Amino Acids/Dextrose/ Fat Emulsion Intravenous 1,512 ml @ 63 mls/hr TPN CONT IV ; Start 02/12/20 at 22:00; Stop 02/13/20 at 21:59 Active Scripts Active Culturelle (Lactobacillus Rhamnosus Gg) 1 Each Cap.sprink 1 Cap PO BID 30 Days Pantoprazole Sodium (Pantoprazole Sodium) 40 Mg Tablet.dr 40 Mg PO DAILYAC 30 Days Dok (Docusate Sodium) 100 Mg Capsule 100 Mg PO BID 30 Days Percocet 5-325 Mg Tablet (Oxycodone/Acetaminophen) 1 Each Tablet 1 Tab PO PRN Q4HRS PRN 7 Days Metoprolol Tartrate 50 Mg Tablet 50 Mg PO BID 30 Days Amiodarone Hcl 200 Mg Tablet 200 Mg PO DAILY 30 Days Eliquis (Apixaban) 5 Mg Tablet 5 Mg PO BID 30 Days Reported Vitamin E (Vitamin E Acetate) 400 Unit Capsule 400 Unit PO TWICE WEEKLY Biotin 5,000 Mcg Tab.rapdis 10,000 Mcg PO TWICE WEEKLY Calcium Magnesium Caplet (Ca Carb & Gluc/Mag Ox & Gluc) 1 Each Tablet 1 Tab PO DAILY 30 Days Selenium 200 Mcg Capsule 1 Cap PO DAILY 30 Days Fish Oil 1,000 Mg Softgel ([place]-3 Fatty Acids/Fish Oil) 1 Each Capsule 4 Cap PO DAILY 30 Days Cranberry (Cranberry Extract) 250 Mg Capsule 250 Mg PO DAILY Stress Formula (Multivits,Stress Formula) 1 Each Tablet 1 Each PO DAILY Vitamin B-12 (Cyanocobalamin (Vitamin B-12)) 1,000 Mcg Tablet 1 Tab PO DAILY 30 Days Abc Complete Senior Women Cplt (Gr-Wwhr-Brut/Iron/Folic/K1/Lut) 1 Each Tablet 1 Each PO DAILY Lysine 1,000 Mg Tablet 1,000 Mg PO DAILY Aspirin 81 Mg Tab.chew 1 Tab PO DAILY Fenofibrate 160 Mg Tablet 1 Tab PO DAILY Allergies Allergies: Coded Allergies: No Known Drug Allergies (Unverified , 01/13/20) ROS PSYCHOLOGICAL ROS: No: Hallucinations Eyes: No Loss of vision HEENT: No: Epistaxis Respiratory: No: Hemoptysis, Shortness of breath Cardiovascular: No Chest Pain Gastrointestinal: Yes Abdominal Pain Genitourinary: No Hematuria Neurological: No Seizures Skin: No Rash Physical Exam General: Alert, Oriented X3 HEENT: PERRLA Lungs: Clear to auscultation Heart: Regular rate Abdomen: Other (Distended with diffuse deep tenderness) Extremities: No edema Psych/Mental Status: Mood NL Vitals VITALS Vital Signs Date Time Temp Pulse Resp B/P (MAP) Pulse Ox O2 Delivery O2 Flow Rate FiO2 02/12/20 12:14 96 Room Air 02/12/20 11:28 97.8 68 18 127/70 (89) 97.8 Labs Labs Laboratory Tests Test 02/11/20 17:20 02/11/20 18:36 02/12/20 00:06 02/12/20 05:00 White Blood Count 8.0 x10^3/uL (4.0-11.0) 8.0 x10^3/uL (4.0-11.0) Red Blood Count 3.39 x10^6/uL (3.50-5.40) 3.10 x10^6/uL (3.50-5.40) Hemoglobin 10.8 g/dL (12.0-15.5) 9.9 g/dL (12.0-15.5) Hematocrit 31.6 % (36.0-47.0) 29.5 % (36.0-47.0) Mean Corpuscular Volume 93 fL (79-100) 95 fL (79-100) Mean Corpuscular Hemoglobin 32 pg (25-35) 32 pg (25-35) Mean Corpuscular Hemoglobin Concent 34 g/dL (31-37) 33 g/dL (31-37) Red Cell Distribution Width 13.8 % (11.5-14.5) 14.0 % (11.5-14.5) Platelet Count 264 x10^3/uL (140-400) 232 x10^3/uL (140-400) Sodium Level 138 mmol/L (136-145) 138 mmol/L (136-145) Potassium Level 3.6 mmol/L (3.5-5.1) 3.8 mmol/L (3.5-5.1) Chloride Level 104 mmol/L (98-107) 105 mmol/L (98-107) Carbon Dioxide Level 24 mmol/L (21-32) 22 mmol/L (21-32) Anion Gap 10 (6-14) 11 (6-14) Blood Urea Nitrogen 9 mg/dL (7-20) 9 mg/dL (7-20) Creatinine 1.0 mg/dL (0.6-1.0) 0.9 mg/dL (0.6-1.0) Estimated GFR (Cockcroft-Gault) 55.6 62.8 BUN/Creatinine Ratio 9 (6-20) 10 (6-20) Glucose Level 138 mg/dL (70-99) 128 mg/dL (70-99) Calcium Level 7.9 mg/dL (8.5-10.1) 7.8 mg/dL (8.5-10.1) Total Bilirubin 0.7 mg/dL (0.2-1.0) 0.7 mg/dL (0.2-1.0) Aspartate Amino Transf (AST/SGOT) 27 U/L (15-37) 30 U/L (15-37) Alanine Aminotransferase (ALT/SGPT) 20 U/L (14-59) 16 U/L (14-59) Alkaline Phosphatase 46 U/L (46-116) 46 U/L (46-116) Total Protein 6.1 g/dL (6.4-8.2) 5.3 g/dL (6.4-8.2) Albumin 2.7 g/dL (3.4-5.0) 2.5 g/dL (3.4-5.0) Albumin/Globulin Ratio 0.8 (1.0-1.7) 0.9 (1.0-1.7) Lipase 564 U/L (73-393) 489 U/L (73-393) Glucose (Fingerstick) 136 mg/dL (70-99) 119 mg/dL (70-99) Phosphorus Level 2.7 mg/dL (2.6-4.7) Magnesium Level 1.7 mg/dL (1.8-2.4) Triglycerides Level 68 mg/dL (0-150) Test 02/12/20 06:06 02/12/20 11:42 Glucose (Fingerstick) 125 mg/dL (70-99) 118 mg/dL (70-99) Laboratory Tests Test 02/11/20 17:20 02/11/20 18:36 02/12/20 00:06 02/12/20 05:00 White Blood Count 8.0 x10^3/uL (4.0-11.0) 8.0 x10^3/uL (4.0-11.0) Red Blood Count 3.39 x10^6/uL (3.50-5.40) 3.10 x10^6/uL (3.50-5.40) Hemoglobin 10.8 g/dL (12.0-15.5) 9.9 g/dL (12.0-15.5) Hematocrit 31.6 % (36.0-47.0) 29.5 % (36.0-47.0) Mean Corpuscular Volume 93 fL (79-100) 95 fL (79-100) Mean Corpuscular Hemoglobin 32 pg (25-35) 32 pg (25-35) Mean Corpuscular Hemoglobin Concent 34 g/dL (31-37) 33 g/dL (31-37) Red Cell Distribution Width 13.8 % (11.5-14.5) 14.0 % (11.5-14.5) Platelet Count 264 x10^3/uL (140-400) 232 x10^3/uL (140-400) Sodium Level 138 mmol/L (136-145) 138 mmol/L (136-145) Potassium Level 3.6 mmol/L (3.5-5.1) 3.8 mmol/L (3.5-5.1) Chloride Level 104 mmol/L (98-107) 105 mmol/L (98-107) Carbon Dioxide Level 24 mmol/L (21-32) 22 mmol/L (21-32) Anion Gap 10 (6-14) 11 (6-14) Blood Urea Nitrogen 9 mg/dL (7-20) 9 mg/dL (7-20) Creatinine 1.0 mg/dL (0.6-1.0) 0.9 mg/dL (0.6-1.0) Estimated GFR (Cockcroft-Gault) 55.6 62.8 BUN/Creatinine Ratio 9 (6-20) 10 (6-20) Glucose Level 138 mg/dL (70-99) 128 mg/dL (70-99) Calcium Level 7.9 mg/dL (8.5-10.1) 7.8 mg/dL (8.5-10.1) Total Bilirubin 0.7 mg/dL (0.2-1.0) 0.7 mg/dL (0.2-1.0) Aspartate Amino Transf (AST/SGOT) 27 U/L (15-37) 30 U/L (15-37) Alanine Aminotransferase (ALT/SGPT) 20 U/L (14-59) 16 U/L (14-59) Alkaline Phosphatase 46 U/L (46-116) 46 U/L (46-116) Total Protein 6.1 g/dL (6.4-8.2) 5.3 g/dL (6.4-8.2) Albumin 2.7 g/dL (3.4-5.0) 2.5 g/dL (3.4-5.0) Albumin/Globulin Ratio 0.8 (1.0-1.7) 0.9 (1.0-1.7) Lipase 564 U/L (73-393) 489 U/L (73-393) Glucose (Fingerstick) 136 mg/dL (70-99) 119 mg/dL (70-99) Phosphorus Level 2.7 mg/dL (2.6-4.7) Magnesium Level 1.7 mg/dL (1.8-2.4) Triglycerides Level 68 mg/dL (0-150) Test 02/12/20 06:06 02/12/20 11:42 Glucose (Fingerstick) 125 mg/dL (70-99) 118 mg/dL (70-99) Assessment/Plan Assessment/Plan 1. Paroxysmal atrial fibrillation, presently in sinus rhythm. Telemetry showed few very brief episodes of atrial fibrillation. Continue amiodarone for rhythm maintenance. Eliquis on hold for now - resume when okay from surgery standpoint. Recent 2D echo showed LVEF 55 to 60%. Patient stated that she recently mailed back her event monitor obtained to assess her arrhythmia burden. We will follow-up on the results. 2. Hemorrhagic pancreatitis: GS and GI teams following 3. Hypertension: Controlled Thank you for your consultation KALA LEPE MD Feb 12, 2020 13:20
--- NOTE | 2020-02-12 13:24 | PDOC ---
SURGICAL PROGRESS NOTE Subjective still has pain, but less intense Vital Signs Vital Signs Date Time Temp Pulse Resp B/P (MAP) Pulse Ox O2 Delivery O2 Flow Rate FiO2 02/12/20 12:14 96 Room Air 02/12/20 11:28 97.8 68 18 127/70 (89) 97.8 I&O Intake and Output 02/12/20 07:00 Intake Total 0 ml Balance 0 ml Intake Oral 0 ml # Voids 1 PATIENT HAS A SUBRAMANIAN: No General: Alert, Oriented X3, No acute distress Abdomen: Soft, Other (mildly TTP in the epigastrium) Labs Laboratory Tests Test 02/11/20 17:20 02/11/20 18:36 02/12/20 00:06 02/12/20 05:00 White Blood Count 8.0 x10^3/uL (4.0-11.0) 8.0 x10^3/uL (4.0-11.0) Red Blood Count 3.39 x10^6/uL (3.50-5.40) 3.10 x10^6/uL (3.50-5.40) Hemoglobin 10.8 g/dL (12.0-15.5) 9.9 g/dL (12.0-15.5) Hematocrit 31.6 % (36.0-47.0) 29.5 % (36.0-47.0) Mean Corpuscular Volume 93 fL (79-100) 95 fL (79-100) Mean Corpuscular Hemoglobin 32 pg (25-35) 32 pg (25-35) Mean Corpuscular Hemoglobin Concent 34 g/dL (31-37) 33 g/dL (31-37) Red Cell Distribution Width 13.8 % (11.5-14.5) 14.0 % (11.5-14.5) Platelet Count 264 x10^3/uL (140-400) 232 x10^3/uL (140-400) Sodium Level 138 mmol/L (136-145) 138 mmol/L (136-145) Potassium Level 3.6 mmol/L (3.5-5.1) 3.8 mmol/L (3.5-5.1) Chloride Level 104 mmol/L (98-107) 105 mmol/L (98-107) Carbon Dioxide Level 24 mmol/L (21-32) 22 mmol/L (21-32) Anion Gap 10 (6-14) 11 (6-14) Blood Urea Nitrogen 9 mg/dL (7-20) 9 mg/dL (7-20) Creatinine 1.0 mg/dL (0.6-1.0) 0.9 mg/dL (0.6-1.0) Estimated GFR (Cockcroft-Gault) 55.6 62.8 BUN/Creatinine Ratio 9 (6-20) 10 (6-20) Glucose Level 138 mg/dL (70-99) 128 mg/dL (70-99) Calcium Level 7.9 mg/dL (8.5-10.1) 7.8 mg/dL (8.5-10.1) Total Bilirubin 0.7 mg/dL (0.2-1.0) 0.7 mg/dL (0.2-1.0) Aspartate Amino Transf (AST/SGOT) 27 U/L (15-37) 30 U/L (15-37) Alanine Aminotransferase (ALT/SGPT) 20 U/L (14-59) 16 U/L (14-59) Alkaline Phosphatase 46 U/L (46-116) 46 U/L (46-116) Total Protein 6.1 g/dL (6.4-8.2) 5.3 g/dL (6.4-8.2) Albumin 2.7 g/dL (3.4-5.0) 2.5 g/dL (3.4-5.0) Albumin/Globulin Ratio 0.8 (1.0-1.7) 0.9 (1.0-1.7) Lipase 564 U/L (73-393) 489 U/L (73-393) Glucose (Fingerstick) 136 mg/dL (70-99) 119 mg/dL (70-99) Phosphorus Level 2.7 mg/dL (2.6-4.7) Magnesium Level 1.7 mg/dL (1.8-2.4) Triglycerides Level 68 mg/dL (0-150) Test 02/12/20 06:06 02/12/20 11:42 Glucose (Fingerstick) 125 mg/dL (70-99) 118 mg/dL (70-99) Laboratory Tests Test 02/11/20 17:20 02/11/20 18:36 02/12/20 00:06 02/12/20 05:00 White Blood Count 8.0 x10^3/uL (4.0-11.0) 8.0 x10^3/uL (4.0-11.0) Red Blood Count 3.39 x10^6/uL (3.50-5.40) 3.10 x10^6/uL (3.50-5.40) Hemoglobin 10.8 g/dL (12.0-15.5) 9.9 g/dL (12.0-15.5) Hematocrit 31.6 % (36.0-47.0) 29.5 % (36.0-47.0) Mean Corpuscular Volume 93 fL (79-100) 95 fL (79-100) Mean Corpuscular Hemoglobin 32 pg (25-35) 32 pg (25-35) Mean Corpuscular Hemoglobin Concent 34 g/dL (31-37) 33 g/dL (31-37) Red Cell Distribution Width 13.8 % (11.5-14.5) 14.0 % (11.5-14.5) Platelet Count 264 x10^3/uL (140-400) 232 x10^3/uL (140-400) Sodium Level 138 mmol/L (136-145) 138 mmol/L (136-145) Potassium Level 3.6 mmol/L (3.5-5.1) 3.8 mmol/L (3.5-5.1) Chloride Level 104 mmol/L (98-107) 105 mmol/L (98-107) Carbon Dioxide Level 24 mmol/L (21-32) 22 mmol/L (21-32) Anion Gap 10 (6-14) 11 (6-14) Blood Urea Nitrogen 9 mg/dL (7-20) 9 mg/dL (7-20) Creatinine 1.0 mg/dL (0.6-1.0) 0.9 mg/dL (0.6-1.0) Estimated GFR (Cockcroft-Gault) 55.6 62.8 BUN/Creatinine Ratio 9 (6-20) 10 (6-20) Glucose Level 138 mg/dL (70-99) 128 mg/dL (70-99) Calcium Level 7.9 mg/dL (8.5-10.1) 7.8 mg/dL (8.5-10.1) Total Bilirubin 0.7 mg/dL (0.2-1.0) 0.7 mg/dL (0.2-1.0) Aspartate Amino Transf (AST/SGOT) 27 U/L (15-37) 30 U/L (15-37) Alanine Aminotransferase (ALT/SGPT) 20 U/L (14-59) 16 U/L (14-59) Alkaline Phosphatase 46 U/L (46-116) 46 U/L (46-116) Total Protein 6.1 g/dL (6.4-8.2) 5.3 g/dL (6.4-8.2) Albumin 2.7 g/dL (3.4-5.0) 2.5 g/dL (3.4-5.0) Albumin/Globulin Ratio 0.8 (1.0-1.7) 0.9 (1.0-1.7) Lipase 564 U/L (73-393) 489 U/L (73-393) Glucose (Fingerstick) 136 mg/dL (70-99) 119 mg/dL (70-99) Phosphorus Level 2.7 mg/dL (2.6-4.7) Magnesium Level 1.7 mg/dL (1.8-2.4) Triglycerides Level 68 mg/dL (0-150) Test 02/12/20 06:06 02/12/20 11:42 Glucose (Fingerstick) 125 mg/dL (70-99) 118 mg/dL (70-99) Hb and Lipase noted Assessment/Plan hemorrhagic pancreatitis serial labs, exams, no acute surg recs at present will follow Justicifation of Admission Dx: Justifications for Admission: Justification of Admission Dx: Comment: (hemorrhagic pancreatitis) VINAY SANCHEZ MD Feb 12, 2020 13:24
[2020-02-12 15:19] VITALS: BP 109/47
--- NOTE | 2020-02-12 15:55 | PDOC ---
G I PROGRESS NOTE Reason for Follow-up Pancreatitis/pseudocyst Subjective Pain improved Physical Exam Lungs clear CV S1 S2 ABD +epigastric tenderness to palpation, Review of Relevant I have reviewed the following items mine (where applicable) has been applied. Labs Laboratory Tests Test 02/11/20 17:20 02/11/20 18:36 02/12/20 00:06 02/12/20 05:00 White Blood Count 8.0 x10^3/uL (4.0-11.0) 8.0 x10^3/uL (4.0-11.0) Red Blood Count 3.39 x10^6/uL (3.50-5.40) 3.10 x10^6/uL (3.50-5.40) Hemoglobin 10.8 g/dL (12.0-15.5) 9.9 g/dL (12.0-15.5) Hematocrit 31.6 % (36.0-47.0) 29.5 % (36.0-47.0) Mean Corpuscular Volume 93 fL (79-100) 95 fL (79-100) Mean Corpuscular Hemoglobin 32 pg (25-35) 32 pg (25-35) Mean Corpuscular Hemoglobin Concent 34 g/dL (31-37) 33 g/dL (31-37) Red Cell Distribution Width 13.8 % (11.5-14.5) 14.0 % (11.5-14.5) Platelet Count 264 x10^3/uL (140-400) 232 x10^3/uL (140-400) Sodium Level 138 mmol/L (136-145) 138 mmol/L (136-145) Potassium Level 3.6 mmol/L (3.5-5.1) 3.8 mmol/L (3.5-5.1) Chloride Level 104 mmol/L (98-107) 105 mmol/L (98-107) Carbon Dioxide Level 24 mmol/L (21-32) 22 mmol/L (21-32) Anion Gap 10 (6-14) 11 (6-14) Blood Urea Nitrogen 9 mg/dL (7-20) 9 mg/dL (7-20) Creatinine 1.0 mg/dL (0.6-1.0) 0.9 mg/dL (0.6-1.0) Estimated GFR (Cockcroft-Gault) 55.6 62.8 BUN/Creatinine Ratio 9 (6-20) 10 (6-20) Glucose Level 138 mg/dL (70-99) 128 mg/dL (70-99) Calcium Level 7.9 mg/dL (8.5-10.1) 7.8 mg/dL (8.5-10.1) Total Bilirubin 0.7 mg/dL (0.2-1.0) 0.7 mg/dL (0.2-1.0) Aspartate Amino Transf (AST/SGOT) 27 U/L (15-37) 30 U/L (15-37) Alanine Aminotransferase (ALT/SGPT) 20 U/L (14-59) 16 U/L (14-59) Alkaline Phosphatase 46 U/L (46-116) 46 U/L (46-116) Total Protein 6.1 g/dL (6.4-8.2) 5.3 g/dL (6.4-8.2) Albumin 2.7 g/dL (3.4-5.0) 2.5 g/dL (3.4-5.0) Albumin/Globulin Ratio 0.8 (1.0-1.7) 0.9 (1.0-1.7) Lipase 564 U/L (73-393) 489 U/L (73-393) Glucose (Fingerstick) 136 mg/dL (70-99) 119 mg/dL (70-99) Phosphorus Level 2.7 mg/dL (2.6-4.7) Magnesium Level 1.7 mg/dL (1.8-2.4) Triglycerides Level 68 mg/dL (0-150) Test 02/12/20 06:06 02/12/20 11:42 Glucose (Fingerstick) 125 mg/dL (70-99) 118 mg/dL (70-99) Laboratory Tests Test 02/11/20 17:20 02/11/20 18:36 02/12/20 00:06 02/12/20 05:00 White Blood Count 8.0 x10^3/uL (4.0-11.0) 8.0 x10^3/uL (4.0-11.0) Red Blood Count 3.39 x10^6/uL (3.50-5.40) 3.10 x10^6/uL (3.50-5.40) Hemoglobin 10.8 g/dL (12.0-15.5) 9.9 g/dL (12.0-15.5) Hematocrit 31.6 % (36.0-47.0) 29.5 % (36.0-47.0) Mean Corpuscular Volume 93 fL (79-100) 95 fL (79-100) Mean Corpuscular Hemoglobin 32 pg (25-35) 32 pg (25-35) Mean Corpuscular Hemoglobin Concent 34 g/dL (31-37) 33 g/dL (31-37) Red Cell Distribution Width 13.8 % (11.5-14.5) 14.0 % (11.5-14.5) Platelet Count 264 x10^3/uL (140-400) 232 x10^3/uL (140-400) Sodium Level 138 mmol/L (136-145) 138 mmol/L (136-145) Potassium Level 3.6 mmol/L (3.5-5.1) 3.8 mmol/L (3.5-5.1) Chloride Level 104 mmol/L (98-107) 105 mmol/L (98-107) Carbon Dioxide Level 24 mmol/L (21-32) 22 mmol/L (21-32) Anion Gap 10 (6-14) 11 (6-14) Blood Urea Nitrogen 9 mg/dL (7-20) 9 mg/dL (7-20) Creatinine 1.0 mg/dL (0.6-1.0) 0.9 mg/dL (0.6-1.0) Estimated GFR (Cockcroft-Gault) 55.6 62.8 BUN/Creatinine Ratio 9 (6-20) 10 (6-20) Glucose Level 138 mg/dL (70-99) 128 mg/dL (70-99) Calcium Level 7.9 mg/dL (8.5-10.1) 7.8 mg/dL (8.5-10.1) Total Bilirubin 0.7 mg/dL (0.2-1.0) 0.7 mg/dL (0.2-1.0) Aspartate Amino Transf (AST/SGOT) 27 U/L (15-37) 30 U/L (15-37) Alanine Aminotransferase (ALT/SGPT) 20 U/L (14-59) 16 U/L (14-59) Alkaline Phosphatase 46 U/L (46-116) 46 U/L (46-116) Total Protein 6.1 g/dL (6.4-8.2) 5.3 g/dL (6.4-8.2) Albumin 2.7 g/dL (3.4-5.0) 2.5 g/dL (3.4-5.0) Albumin/Globulin Ratio 0.8 (1.0-1.7) 0.9 (1.0-1.7) Lipase 564 U/L (73-393) 489 U/L (73-393) Glucose (Fingerstick) 136 mg/dL (70-99) 119 mg/dL (70-99) Phosphorus Level 2.7 mg/dL (2.6-4.7) Magnesium Level 1.7 mg/dL (1.8-2.4) Triglycerides Level 68 mg/dL (0-150) Test 02/12/20 06:06 02/12/20 11:42 Glucose (Fingerstick) 125 mg/dL (70-99) 118 mg/dL (70-99) Medications Current Medications Amiodarone HCl (Cordarone) 200 mg DAILY PO Last administered on 02/12/20at 08:52; Start 02/12/20 at 09:00 Cyanocobalamin (Vitamin B-12) 1,000 mcg DAILY PO Last administered on 02/12/20at 08:51; Start 02/12/20 at 09:00 Docusate Sodium (Colace) 100 mg BID PO Last administered on 02/12/20at 08:52; Start 02/11/20 at 21:00 Lactobacillus Rhamnosus (Culturelle) 1 cap BID PO ; Start 02/11/20 at 21:00; Stop 02/11/20 at 14:34; Status DC Metoprolol Tartrate (Lopressor) 50 mg BID PO Last administered on 02/12/20at 08:52; Start 02/11/20 at 21:00 Potassium Chloride/Dextrose/ Sod Cl 1,000 ml @ 80 mls/hr 1X ONCE IV Last administered on 02/11/20at 13:43; Start 02/11/20 at 13:00; Stop 02/12/20 at 01:29; Status DC Pantoprazole Sodium (PROTONIX VIAL for IV PUSH) 40 mg DAILYAC IVP Last administered on 02/12/20at 08:51; Start 02/12/20 at 07:30 Fentanyl Citrate (Fentanyl 2ml Vial) 50 mcg PRN Q3HRS PRN IVP PAIN Last administered on 02/12/20at 11:38; Start 02/11/20 at 13:00 Ondansetron HCl (Zofran) 4 mg PRN Q4HRS PRN IVP NAUSEA/VOMITING; Start 02/11/20 at 13:00 Insulin Human Lispro (HumaLOG) 0-7 UNITS Q6HRS SQ ; Start 02/11/20 at 18:00 Dextrose (Dextrose 50%-Water Syringe) 12.5 gm PRN Q15MIN PRN IV SEE COMMENTS; Start 02/11/20 at 13:00 Info (Tpn Per Pharmacy) 1 each PRN DAILY PRN MC SEE COMMENTS Last administered on 02/12/20at 12:53; Start 02/11/20 at 15:00 Sodium Chloride 1,000 ml @ 75 mls/hr [id number] IV Last administered on 02/12/20at 02:55; Start 02/11/20 at 14:30 Sodium Chloride 90 meq/Potassium Chloride 50 meq/ Potassium Phosphate 13.6 mmol/Magnesium Sulfate 10 meq/ Calcium Gluconate 10 meq/ Multivitamins 10 ml/Chromium/ Copper/Manganese/ Seleni/Zn 1 ml/ Total Parenteral Nutrition/Amino Acids/Dextrose/ Fat Emulsion Intravenous 1,512 ml @ 63 mls/hr TPN CONT IV ; Start 02/11/20 at 22:00; Stop 02/12/20 at 21:59 Sodium Chloride 110 meq/Potassium Acetate 70 meq/ Potassium Phosphate 17 mmol/ Magnesium Sulfate 14 meq/Calcium Gluconate 10 meq/ Multivitamins 10 ml/Chromium/ Copper/Manganese/ Seleni/Zn 1 ml/ Total Parenteral Nutrition/Amino Acids/Dextrose/ Fat Emulsion Intravenous 1,512 ml @ 63 mls/hr TPN CONT IV ; Start 02/12/20 at 22:00; Stop 02/13/20 at 21:59 Active Scripts Active Culturelle (Lactobacillus Rhamnosus Gg) 1 Each Cap.sprink 1 Cap PO BID 30 Days Pantoprazole Sodium (Pantoprazole Sodium) 40 Mg Tablet.dr 40 Mg PO DAILYAC 30 Days Dok (Docusate Sodium) 100 Mg Capsule 100 Mg PO BID 30 Days Percocet 5-325 Mg Tablet (Oxycodone/Acetaminophen) 1 Each Tablet 1 Tab PO PRN Q4HRS PRN 7 Days Metoprolol Tartrate 50 Mg Tablet 50 Mg PO BID 30 Days Amiodarone Hcl 200 Mg Tablet 200 Mg PO DAILY 30 Days Eliquis (Apixaban) 5 Mg Tablet 5 Mg PO BID 30 Days Reported Vitamin E (Vitamin E Acetate) 400 Unit Capsule 400 Unit PO TWICE WEEKLY Biotin 5,000 Mcg Tab.rapdis 10,000 Mcg PO TWICE WEEKLY Calcium Magnesium Caplet (Ca Carb & Gluc/Mag Ox & Gluc) 1 Each Tablet 1 Tab PO DAILY 30 Days Selenium 200 Mcg Capsule 1 Cap PO DAILY 30 Days Fish Oil 1,000 Mg Softgel ([place]-3 Fatty Acids/Fish Oil) 1 Each Capsule 4 Cap PO DAILY 30 Days Cranberry (Cranberry Extract) 250 Mg Capsule 250 Mg PO DAILY Stress Formula (Multivits,Stress Formula) 1 Each Tablet 1 Each PO DAILY Vitamin B-12 (Cyanocobalamin (Vitamin B-12)) 1,000 Mcg Tablet 1 Tab PO DAILY 30 Days Abc Complete Senior Women Cplt (Pa-Mzzo-Xhnd/Iron/Folic/K1/Lut) 1 Each Tablet 1 Each PO DAILY Lysine 1,000 Mg Tablet 1,000 Mg PO DAILY Aspirin 81 Mg Tab.chew 1 Tab PO DAILY Fenofibrate 160 Mg Tablet 1 Tab PO DAILY Vitals/I & O Vital Sign - Last 24 Hours 02/11/20 02/11/20 02/11/20 02/11/20 16:54 17:25 19:00 20:00 Temp 99.1 99.1 Pulse 81 Resp 18 19 18 B/P (MAP) 132/75 (94) Pulse Ox 94 94 94 O2 Delivery Room Air Room Air Room Air 02/11/20 02/11/20 02/11/20 02/11/20 21:00 22:30 23:20 23:43 Temp 99.4 99.4 Pulse 81 83 Resp 16 B/P (MAP) 132/75 120/63 (82) Pulse Ox 95 O2 Delivery Room Air Room Air Room Air 02/12/20 02/12/20 02/12/20 02/12/20 03:05 07:30 08:00 08:47 Temp 98.6 98.2 98.6 98.2 Pulse 86 86 Resp 16 18 B/P (MAP) 121/63 (82) 120/69 (86) Pulse Ox 95 95 95 O2 Delivery Room Air Room Air Room Air Room Air 02/12/20 02/12/20 02/12/20 02/12/20 08:52 08:52 11:28 11:38 Temp 97.8 97.8 Pulse 86 86 68 Resp 18 B/P (MAP) 120/69 120/69 127/70 (89) Pulse Ox 96 96 O2 Delivery Room Air Room Air 02/12/20 02/12/20 12:14 15:19 Temp 98.4 98.4 Pulse 42 Resp 18 B/P (MAP) 109/47 (67) Pulse Ox 96 95 O2 Delivery Room Air Room Air Intake and Output 02/11/20 02/11/20 02/12/20 15:00 23:00 07:00 Intake Total 0 ml Balance 0 ml Problem List Pancreaititis- with pseudocyst hemorrhage, continue with TPN, recheck labs in am, possible Ct mid week to reassess size of fluid collections. Justicifation of Admission Dx: Justifications for Admission: Justification of Admission Dx: Comment: (hemorrhagic pancreatitis) NANY DIAZ MD Feb 12, 2020 15:55
[2020-02-12 19:00] VITALS: BP 125/68
[2020-02-12] MEDS ORDERED: AMINO ACID IV SCH (22:00)
[2020-02-12] MEDS ORDERED: TOTAL PARENTERAL NUTRITION IV SCH (22:00)
[2020-02-12] MEDS ORDERED: [UNRECOGNIZED DRUG - OTHER] IV SCH (22:00)
[2020-02-12] MEDS ORDERED: DEXTROSE 70% IV SCH (22:00)
[2020-02-12] MEDS: ONDANSETRON PF 4 MG/2 ML VIAL. IVP PRN (22:38)
[2020-02-12 23:00] VITALS: BP 128/66
[2020-02-13] MEDS: INSULIN LISPRO 300 UNITS/3 ML VIAL. SQ SCH ×4 (00:25→17:59)
[2020-02-13 03:00] VITALS: BP 113/66
[2020-02-13] MEDS: fentaNYL PF VIAL 100 MCG/2 ML VIAL IVP PRN (03:18)
[2020-02-13] MEDS: ACETAMINOPHEN 325 MG TABLET. PO PRN ×2 (03:19→22:24)
[2020-02-13 04:22] LABS: HEMATOCRIT 29.9 % (36.0-47.0); HEMOGLOBIN 10.1 g/dL (12.0-15.5)
[2020-02-13 04:44] LABS: CALCIUM 8.1 mg/dL (8.5-10.1); CREATININE 0.9 mg/dL (0.6-1.0); GFR 62.8; MAGNESIUM 1.9 mg/dL (1.8-2.4); POTASSIUM 3.9 mmol/L (3.5-5.1)
[2020-02-13 07:00] VITALS: BP 109/65
[2020-02-13] MEDS: PANTOPRAZOLE IV PUSH 40 MG VIAL. IVP SCH (08:49)
[2020-02-13] MEDS: DOCUSATE SODIUM 100 MG CAPSULE. PO SCH ×2 (08:49→20:32)
--- NOTE | 2020-02-13 08:55 | PDOC ---
EDWIN FRIEND [employer] 02/13/20 0855: SURGICAL PROGRESS NOTE Subjective pain LUQ, some improvement some nausea Vital Signs Vital Signs Date Time Temp Pulse Resp B/P (MAP) Pulse Ox O2 Delivery O2 Flow Rate FiO2 02/13/20 07:00 98.1 71 16 109/65 (80) 96 Room Air 98.1 I&O Intake and Output 02/13/20 07:00 Intake Total 200 ml Balance 200 ml Intake Oral 200 ml # Voids 3 General: Alert, Oriented X3, Cooperative Abdomen: Soft, Other (nontender on exam) Labs Laboratory Tests Test 02/11/20 17:20 02/11/20 18:36 02/12/20 00:06 02/12/20 05:00 White Blood Count 8.0 x10^3/uL (4.0-11.0) 8.0 x10^3/uL (4.0-11.0) Red Blood Count 3.39 x10^6/uL (3.50-5.40) 3.10 x10^6/uL (3.50-5.40) Hemoglobin 10.8 g/dL (12.0-15.5) 9.9 g/dL (12.0-15.5) Hematocrit 31.6 % (36.0-47.0) 29.5 % (36.0-47.0) Mean Corpuscular Volume 93 fL (79-100) 95 fL (79-100) Mean Corpuscular Hemoglobin 32 pg (25-35) 32 pg (25-35) Mean Corpuscular Hemoglobin Concent 34 g/dL (31-37) 33 g/dL (31-37) Red Cell Distribution Width 13.8 % (11.5-14.5) 14.0 % (11.5-14.5) Platelet Count 264 x10^3/uL (140-400) 232 x10^3/uL (140-400) Sodium Level 138 mmol/L (136-145) 138 mmol/L (136-145) Potassium Level 3.6 mmol/L (3.5-5.1) 3.8 mmol/L (3.5-5.1) Chloride Level 104 mmol/L (98-107) 105 mmol/L (98-107) Carbon Dioxide Level 24 mmol/L (21-32) 22 mmol/L (21-32) Anion Gap 10 (6-14) 11 (6-14) Blood Urea Nitrogen 9 mg/dL (7-20) 9 mg/dL (7-20) Creatinine 1.0 mg/dL (0.6-1.0) 0.9 mg/dL (0.6-1.0) Estimated GFR (Cockcroft-Gault) 55.6 62.8 BUN/Creatinine Ratio 9 (6-20) 10 (6-20) Glucose Level 138 mg/dL (70-99) 128 mg/dL (70-99) Calcium Level 7.9 mg/dL (8.5-10.1) 7.8 mg/dL (8.5-10.1) Total Bilirubin 0.7 mg/dL (0.2-1.0) 0.7 mg/dL (0.2-1.0) Aspartate Amino Transf (AST/SGOT) 27 U/L (15-37) 30 U/L (15-37) Alanine Aminotransferase (ALT/SGPT) 20 U/L (14-59) 16 U/L (14-59) Alkaline Phosphatase 46 U/L (46-116) 46 U/L (46-116) Total Protein 6.1 g/dL (6.4-8.2) 5.3 g/dL (6.4-8.2) Albumin 2.7 g/dL (3.4-5.0) 2.5 g/dL (3.4-5.0) Albumin/Globulin Ratio 0.8 (1.0-1.7) 0.9 (1.0-1.7) Lipase 564 U/L (73-393) 489 U/L (73-393) Glucose (Fingerstick) 136 mg/dL (70-99) 119 mg/dL (70-99) Phosphorus Level 2.7 mg/dL (2.6-4.7) Magnesium Level 1.7 mg/dL (1.8-2.4) Triglycerides Level 68 mg/dL (0-150) Test 02/12/20 06:06 02/12/20 11:42 02/12/20 18:02 02/13/20 03:20 Glucose (Fingerstick) 125 mg/dL (70-99) 118 mg/dL (70-99) 147 mg/dL (70-99) Hemoglobin 10.1 g/dL (12.0-15.5) Hematocrit 29.9 % (36.0-47.0) Sodium Level 137 mmol/L (136-145) Potassium Level 3.9 mmol/L (3.5-5.1) Chloride Level 104 mmol/L (98-107) Carbon Dioxide Level 23 mmol/L (21-32) Anion Gap 10 (6-14) Blood Urea Nitrogen 11 mg/dL (7-20) Creatinine 0.9 mg/dL (0.6-1.0) Estimated GFR (Cockcroft-Gault) 62.8 Glucose Level 168 mg/dL (70-99) Calcium Level 8.1 mg/dL (8.5-10.1) Phosphorus Level 2.0 mg/dL (2.6-4.7) Magnesium Level 1.9 mg/dL (1.8-2.4) Lipase 447 U/L (73-393) Test 02/13/20 05:38 Glucose (Fingerstick) 203 mg/dL (70-99) Laboratory Tests Test 02/12/20 11:42 02/12/20 18:02 02/13/20 03:20 02/13/20 05:38 Glucose (Fingerstick) 118 mg/dL (70-99) 147 mg/dL (70-99) 203 mg/dL (70-99) Hemoglobin 10.1 g/dL (12.0-15.5) Hematocrit 29.9 % (36.0-47.0) Sodium Level 137 mmol/L (136-145) Potassium Level 3.9 mmol/L (3.5-5.1) Chloride Level 104 mmol/L (98-107) Carbon Dioxide Level 23 mmol/L (21-32) Anion Gap 10 (6-14) Blood Urea Nitrogen 11 mg/dL (7-20) Creatinine 0.9 mg/dL (0.6-1.0) Estimated GFR (Cockcroft-Gault) 62.8 Glucose Level 168 mg/dL (70-99) Calcium Level 8.1 mg/dL (8.5-10.1) Phosphorus Level 2.0 mg/dL (2.6-4.7) Magnesium Level 1.9 mg/dL (1.8-2.4) Lipase 447 U/L (73-393) Assessment/Plan TPN, bowel rest Justicifation of Admission Dx: Justifications for Admission: Justification of Admission Dx: Comment: (hemorrhagic pancreatitis) VINAY SANCHEZ MD 02/13/20 1235: SURGICAL PROGRESS NOTE Assessment/Plan pt seen and examined as above no new surgical recs EDWIN FRIEND APRN Feb 13, 2020 08:55 VINAY SANCHEZ MD Feb 13, 2020 12:35
[2020-02-13] MEDS: AMIODARONE HCL 200 MG TABLET. PO SCH (09:00)
[2020-02-13] MEDS: CYANOCOBALAMIN (VITAMIN B-12) 1,000 MCG TABLET. PO SCH (09:00)
[2020-02-13] MEDS: METOPROLOL TART IMMED RELEASE 50 MG TABLET. PO SCH ×2 (09:00→20:33)
--- NOTE | 2020-02-13 10:32 | PDOC ---
Subjective: Subjective: Pain is better. Stooled on Thursday - feels the urge but can't go. Passing gas. Says she took Colace. Objective: Vital Signs: Vital Signs Date Time Temp Pulse Resp B/P (MAP) Pulse Ox O2 Delivery O2 Flow Rate FiO2 02/13/20 09:00 71 109/65 02/13/20 07:00 98.1 16 96 Room Air 98.1 Labs: Laboratory Tests Test 02/12/20 11:42 02/12/20 18:02 02/13/20 03:20 02/13/20 05:38 Glucose (Fingerstick) 118 mg/dL 147 mg/dL 203 mg/dL Hemoglobin 10.1 g/dL Hematocrit 29.9 % Sodium Level 137 mmol/L Potassium Level 3.9 mmol/L Chloride Level 104 mmol/L Carbon Dioxide Level 23 mmol/L Anion Gap 10 Blood Urea Nitrogen 11 mg/dL Creatinine 0.9 mg/dL Estimated GFR (Cockcroft-Gault) 62.8 Glucose Level 168 mg/dL Calcium Level 8.1 mg/dL Phosphorus Level 2.0 mg/dL Magnesium Level 1.9 mg/dL Lipase 447 U/L PE: GEN: NAD LUNGS: CTAB HEART: RRR ABD: some tenderness LUQ, quiet BS, soft NEURO/PSYCH: A & O 3, was talking on the phone A/P: Recent gallstone pancreatitis s/p cholecystectomy, now w/ abnormal pancreas imaging/pseudocyst/hemorrhage Anemia - stable H/o GERD and constipation - on IV PPI and Colace here CRC screen - UTD (2018) Diverticulosis, hemorrhoids -- NPO, TPN, consider interval CT later this week. Consider more aggressive treatment for constipation, will d/w Dr. Nobles. Justicifation of Admission Dx: Justifications for Admission: Justification of Admission Dx: Comment: (hemorrhagic pancreatitis) RONNI BOATENG Feb 13, 2020 10:31
[2020-02-13 11:00] VITALS: BP 119/68
--- NOTE | 2020-02-13 12:39 | PN ---
DATE: 02/13/2020 SUBJECTIVE: The patient is resting, slightly propped up in bed, in no apparent distress. She stated that her pain in the epigastric and left upper quadrant is much settling down. Biggest problem now is her constipation and she has urge to go, but she cannot defecate. She has been obviously on fentanyl and that is not helping. PHYSICAL EXAMINATION: GENERAL: When I examined her this morning, she looked pale, but no jaundice, cyanosis or thyromegaly. No jugular venous distention. No limb edema. VITAL SIGNS: Her heart rate was 74, blood pressure was 119/68, temperature 98.6, respiratory rate was 16, and oxygen saturation was 97%. HEAD, EYES, EARS, NOSE AND THROAT: Normocephalic, atraumatic. NECK: Supple. HEART: Showed normal first and second heart sounds. No gallop, rub or murmur. CHEST: Clear to auscultation. No crepitation or rhonchi. ABDOMEN: Distended, soft, nontender. NEUROLOGIC: She is awake, alert, responding appropriately. All cranial nerves intact. She moves extremities without difficulty. Her intake over the last 24 hours and output are incompletely recorded. LABORATORY DATA: Her lab work this morning showed a serum sodium 137, potassium 3.9, chloride 104, bicarbonate 23, anion gap of 10, BUN 11, creatinine 0.9, estimated GFR was 63 mL per minute. Her glucose was 168, calcium was 8.1, phosphorus 2, magnesium was 1.9. Serum lipase was 444. Her H and H was 10 and 30. ASSESSMENT: 1. Hemorrhagic pancreatitis with pseudocyst and pseudoaneurysm. 2. Atrial fibrillation, for which she was on apixaban that is now on hold. 3. Hypertension, seems to be well controlled. 4. Constipation. I did order PT, OT and apparently the nurse discussed with Dr. Nobles whether she should be on Relistor. BRIE RODRIGUEZ MD DR: NOELLE/hector JOB#: [id number] / [id number]
[2020-02-13] MEDS: TPN PER PHARMACY MC PRN (13:04)
--- NOTE | 2020-02-13 13:12 | NUR ---
Pharmacy TPN Dosing Note S: MICK CAMPOS is a 64 year old F Currently receiving Central Continuous TPN started 02/11/20 B:Pertinent PMH: NPO, Pancreatitis Height: 5 feet, 6 inches Weight: 95.609843 kg Current diet: NPO LABS: Sodium: 137 Potassium: 3.9 Chloride: 104 Calcium: 8.1 Corrected Calcium: 9.30 Magnesium: 1.9 CO2: 23 SCr: 0.9 Glucose: 167-203 Albumin: 2.5 AST: 35 ALT: 24 TPN FORMULA: TPN TYPE: Central Continuous AMINO ACIDS: 60 gm DEXTROSE: 195 gm LIPIDS: 20 gm SODIUM CHLORIDE: 110 mEq SODIUM ACETATE: - mEq SODIUM PHOSPHATE: - mmol POTASSIUM CHLORIDE: - mEq POTASSIUM ACETATE: 70 mEq POTASSIUM PHOSPHATE: 24 mmol MAGNESIUM: 14 mEq CALCIUM: 10 mEq INSULIN: - units MULTIPLE VITAMIN: 10 ml TRACE ELEMENTS: 1 ml ml(s) TPN PLAN: INCREASED K PHOS FOR LOW PHOS. TRIG 68, APPROPRIATE TO CONTINUE LIPID. BMP, PHOS, MAG IN AM. R: Continue TPN ABOVE. Will monitor electrolytes, glucose, and tolerance to TPN. ARMINDA JUSTICE [facility], 02/13/20 2942
[2020-02-13 15:00] VITALS: BP 121/66
--- NOTE | 2020-02-13 15:10 | NUR ---
SW following. Spoke with RN and reviewed chart. Met with pt who stated she lives at home with her spouse. Pt awaiting bowel movement prior to discharge. Pt on room air and TPN. Pt agreeable to HH at discharge. SW completed Patient Choice of Vendor form. JOE phoned and faxed referral to [facility] at request of pt, , (fax). SW to continue following.
--- NOTE | 2020-02-13 15:43 | PDOC ---
PROGRESS NOTES Subjective Subjective No new complaints Objective Objective Vital Signs Date Time Temp Pulse Resp B/P (MAP) Pulse Ox O2 Delivery O2 Flow Rate FiO2 02/13/20 11:00 98.6 74 16 119/68 (85) 97 Room Air 98.6 Intake and Output 02/13/20 07:00 Intake Total 200 ml Balance 200 ml Intake Oral 200 ml # Voids 3 Physical Exam Abdomen: Soft, Other (nontender on exam) Heart: Regular rate Extremities: No edema General: Alert, Oriented X3, Cooperative HEENT: PERRLA Lungs: Clear to auscultation Psych/Mental Status: Mood NL Assessment Assessment 1. Paroxysmal atrial fibrillation, presently in sinus rhythm. Telemetry showed few very brief very episodes of atrial fibrillation. Continue amiodarone for rhythm maintenance. Eliquis on hold for now - resume when okay from surgery standpoint. Recent 2D echo showed LVEF 55 to 60%. We will follow-up on the results of recent event monitor recording. 2. Hemorrhagic pancreatitis: GS and GI teams following 3. Hypertension: Controlled Comment Review of Relevant I have reviewed the following items mine (where applicable) has been applied. Labs Laboratory Tests Test 02/12/20 18:02 02/13/20 03:20 02/13/20 05:38 02/13/20 11:47 Glucose (Fingerstick) 147 mg/dL (70-99) 203 mg/dL (70-99) 167 mg/dL (70-99) Hemoglobin 10.1 g/dL (12.0-15.5) Hematocrit 29.9 % (36.0-47.0) Sodium Level 137 mmol/L (136-145) Potassium Level 3.9 mmol/L (3.5-5.1) Chloride Level 104 mmol/L (98-107) Carbon Dioxide Level 23 mmol/L (21-32) Anion Gap 10 (6-14) Blood Urea Nitrogen 11 mg/dL (7-20) Creatinine 0.9 mg/dL (0.6-1.0) Estimated GFR (Cockcroft-Gault) 62.8 Glucose Level 168 mg/dL (70-99) Calcium Level 8.1 mg/dL (8.5-10.1) Phosphorus Level 2.0 mg/dL (2.6-4.7) Magnesium Level 1.9 mg/dL (1.8-2.4) Lipase 447 U/L (73-393) Medications Current Medications Acetaminophen (Tylenol) 650 mg PRN Q4HRS PRN PO FEVER > 100.3'F Last administered on 02/13/20at 03:19; Start 02/13/20 at 01:45 Sodium Chloride 110 meq/Potassium Acetate 70 meq/ Potassium Phosphate 17 mmol/ Magnesium Sulfate 14 meq/Calcium Gluconate 10 meq/ Multivitamins 10 ml/Chromium/ Copper/Manganese/ Seleni/Zn 1 ml/ Total Parenteral Nutrition/Amino Acids/Dextrose/ Fat Emulsion Intravenous 1,512 ml @ 63 mls/hr TPN CONT IV Last administered on 02/12/20at 20:57; Start 02/12/20 at 22:00; Stop 02/13/20 at 21:59 Sodium Chloride 110 meq/Potassium Acetate 70 meq/ Potassium Phosphate 24 mmol/ Magnesium Sulfate 14 meq/Calcium Gluconate 10 meq/ Multivitamins 10 ml/Chromium/ Copper/Manganese/ Seleni/Zn 1 ml/ Total Parenteral Nutrition/Amino Acids/Dextrose/ Fat Emulsion Intravenous 1,512 ml @ 63 mls/hr TPN CONT IV ; Start 02/13/20 at 22:00; Stop 02/14/20 at 21:59 Vitals/I & O Vital Sign - Last 24 Hours 02/12/20 02/12/20 02/12/20 02/12/20 16:58 17:35 19:00 20:20 Temp 98.9 98.9 Pulse 79 Resp 20 B/P (MAP) 125/68 (87) Pulse Ox 95 95 98 O2 Delivery Room Air Room Air Room Air Room Air 02/12/20 02/12/20 02/12/20 02/12/20 21:00 22:38 23:00 23:12 Temp 101.1 101.1 Pulse 79 87 Resp 20 B/P (MAP) 125/68 128/66 (86) Pulse Ox 95 O2 Delivery Room Air Room Air Room Air 02/13/20 02/13/20 02/13/20 02/13/20 03:00 03:18 03:42 07:00 Temp 99.1 98.1 99.1 98.1 Pulse 85 71 Resp 20 16 B/P (MAP) 113/66 (82) 109/65 (80) Pulse Ox 95 96 O2 Delivery Room Air Room Air Room Air Room Air 02/13/20 02/13/20 02/13/20 09:00 09:00 11:00 Temp 98.6 98.6 Pulse 71 71 74 Resp 16 B/P (MAP) 109/65 109/65 119/68 (85) Pulse Ox 97 O2 Delivery Room Air Intake and Output 02/12/20 02/12/20 02/13/20 15:00 23:00 07:00 Intake Total 0 ml 0 ml 200 ml Balance 0 ml 0 ml 200 ml KALA LEPE MD Feb 13, 2020 15:43
[2020-02-13 19:00] VITALS: BP 128/51
[2020-02-13] MEDS ORDERED: DEXTROSE 70% IV SCH (22:00)
[2020-02-13] MEDS ORDERED: TOTAL PARENTERAL NUTRITION IV SCH (22:00)
[2020-02-13] MEDS ORDERED: [UNRECOGNIZED DRUG - OTHER] IV SCH (22:00)
[2020-02-13] MEDS ORDERED: AMINO ACID IV SCH (22:00)
[2020-02-13 23:00] VITALS: BP 126/57
[2020-02-14 03:00] VITALS: BP 115/61
[2020-02-14] MEDS: fentaNYL PF VIAL 100 MCG/2 ML VIAL IVP PRN ×2 (04:26→10:00)
[2020-02-14] MEDS: ONDANSETRON PF 4 MG/2 ML VIAL. IVP PRN ×2 (04:26→18:18)
[2020-02-14 05:10] LABS: CALCIUM 8.2 mg/dL (8.5-10.1); CREATININE 0.9 mg/dL (0.6-1.0); GFR 62.8; PHOSPHORUS 2.8 mg/dL (2.6-4.7); POTASSIUM 4.3 mmol/L (3.5-5.1)
[2020-02-14] MEDS: INSULIN LISPRO 300 UNITS/3 ML VIAL. SQ SCH ×4 (06:00→18:00)
[2020-02-14 07:00] VITALS: BP 116/69
[2020-02-14] MEDS: AMIODARONE HCL 200 MG TABLET. PO SCH (09:00)
[2020-02-14] MEDS: CYANOCOBALAMIN (VITAMIN B-12) 1,000 MCG TABLET. PO SCH (09:00)
[2020-02-14] MEDS: METOPROLOL TART IMMED RELEASE 50 MG TABLET. PO SCH ×2 (09:00→20:48)
[2020-02-14] MEDS: DOCUSATE SODIUM 100 MG CAPSULE. PO SCH ×2 (09:56→20:44)
[2020-02-14] MEDS: PANTOPRAZOLE IV PUSH 40 MG VIAL. IVP SCH (09:59)
--- NOTE | 2020-02-14 10:41 | PDOC ---
Subjective: Subjective: Had some more upper abd pain this morning. Wondering when she might get to eat. Hasn't stooled. Objective: Vital Signs: Vital Signs Date Time Temp Pulse Resp B/P (MAP) Pulse Ox O2 Delivery O2 Flow Rate FiO2 02/14/20 10:00 16 Room Air 02/14/20 07:00 97.5 71 116/69 (85) 96 97.5 Labs: Laboratory Tests Test 02/13/20 11:47 02/13/20 17:57 02/14/20 00:59 02/14/20 04:20 Glucose (Fingerstick) 167 mg/dL 150 mg/dL 153 mg/dL Sodium Level 137 mmol/L Potassium Level 4.3 mmol/L Chloride Level 104 mmol/L Carbon Dioxide Level 24 mmol/L Anion Gap 9 Blood Urea Nitrogen 13 mg/dL Creatinine 0.9 mg/dL Estimated GFR (Cockcroft-Gault) 62.8 Glucose Level 130 mg/dL Calcium Level 8.2 mg/dL Phosphorus Level 2.8 mg/dL Magnesium Level 2.0 mg/dL Test 02/14/20 06:27 Glucose (Fingerstick) 137 mg/dL PE: GEN: NAD LUNGS: CTAB HEART: RRR ABD: epigastric tenderness, quiet gurgles lower abdomen, soft NEURO/PSYCH: A & O 3 A/P: Hemorrhagic pancreatitis Anemia - stable H/o GERD and constipation -- Try Amitiza. Continue NPO/TPN/ice chips. Will review timing for interval CT w/ Dr. Nobles. Justicifation of Admission Dx: Justifications for Admission: Justification of Admission Dx: Comment: (hemorrhagic pancreatitis) RONNI BOATENG Feb 14, 2020 10:41
[2020-02-14] MEDS: TPN PER PHARMACY MC PRN ×2 (10:59→11:02)
[2020-02-14 11:00] VITALS: BP 112/61
--- NOTE | 2020-02-14 11:03 | NUR ---
Pharmacy TPN Dosing Note S: MICK CAMPOS is a 64 year old F Currently receiving Central Continuous TPN started 02/11/20 B:Pertinent PMH: NPO, Pancreatitis Height: 5 feet, 6 inches Weight: 95.345516 kg Current diet: NPO LABS: Sodium: 137 Potassium: 4.3 Chloride: 104 Calcium: 8.2 Corrected Calcium: 9.40 Magnesium: 2.0 CO2: 24 SCr: 0.9 Glucose: 137 Albumin: 2.5 AST: 35 ALT: 24 TPN FORMULA: TPN TYPE: Central Continuous AMINO ACIDS: 60 gm DEXTROSE: 195 gm LIPIDS: 20 gm SODIUM CHLORIDE: 110 mEq POTASSIUM ACETATE: 70 mEq POTASSIUM PHOSPHATE: 24 mmol MAGNESIUM: 14 mEq CALCIUM: 10 mEq MULTIPLE VITAMIN: 10 ml TRACE ELEMENTS: 1 ml ml(s) TPN PLAN: All electrolytes WNL. Continue same TPN. R: Continue TPN Will monitor electrolytes, glucose, and tolerance to TPN. Agustin Bach [facility], 02/14/20 [id number]
[2020-02-14] MEDS: LUBIPROSTONE 24 MCG CAPSULE PO SCH ×2 (11:45→16:50)
--- NOTE | 2020-02-14 11:59 | PN ---
DATE: 02/14/2020 SUBJECTIVE: The patient is sitting comfortably in her recliner, in no apparent respiratory distress. She stated that she did have episodes of abdominal pain last night; however, currently she has no pain. She was seen by the programmer analyst health it and apparently started on Amitiza 24 mcg p.o. twice a day with meals. She did pass some gas, but has not had any bowel movement yet. PHYSICAL EXAMINATION: GENERAL: When I examined her, she looked pale, but no jaundice, cyanosis or thyromegaly. No jugular venous distension. No lower limb edema. VITAL SIGNS: Her heart rate was 76, blood pressure was 112/61, temperature was 98.6, respiratory rate was 16, and oxygen saturation was 94%. HEAD, EYES, EARS, NOSE AND THROAT: Normocephalic, atraumatic. NECK: Supple. HEART: Showed normal first and second heart sounds. No gallop or murmur. CHEST: Clear to auscultation. No crepitation or rhonchi. ABDOMEN: Distended, soft, nontender. NEUROLOGIC: She is awake, alert, responding appropriately. All cranial nerves are intact. She moves extremities without difficulty. Her intake and output were incompletely recorded. LABORATORY DATA: Her lab work as of yesterday showed hemoglobin 10, hematocrit 30. Her chemistry showed a serum sodium 137, potassium 4.3, chloride 104, bicarbonate 24, anion gap of 9, BUN 13, creatinine 0.9, estimated GFR was 63 mL per minute. Her glucose 130, calcium was 8.2, phosphorus 2.8 and magnesium was 2. ASSESSMENT: 1. Hemorrhagic pancreatitis with pseudocyst, for which she is now on TPN. 2. Paroxysmal atrial fibrillation, currently in sinus rhythm. Her apixaban was discontinued. 3. Hypertension, seems to be well controlled. 4. Constipation for which she is now on Amitiza. BRIE RODRIGUEZ MD DR: NOELLE/hector JOB#: [id number] / [id number]
--- NOTE | 2020-02-14 12:06 | PDOC ---
EDWIN FRIEND FLAVOR MAKER 02/14/20 1206: SURGICAL PROGRESS NOTE Subjective feels pretty well minimal abdominal pain feels bloating improved Vital Signs Vital Signs Date Time Temp Pulse Resp B/P (MAP) Pulse Ox O2 Delivery O2 Flow Rate FiO2 02/14/20 11:00 98.6 76 16 112/61 (78) 94 Room Air 98.6 I&O Intake and Output 02/14/20 07:00 Intake Total 70 ml Balance 70 ml Intake Oral 70 ml # Voids 6 General: Alert, Oriented X3, Cooperative Abdomen: Soft, No tenderness Labs Laboratory Tests Test 02/12/20 18:02 02/13/20 03:20 02/13/20 05:38 02/13/20 11:47 Glucose (Fingerstick) 147 mg/dL (70-99) 203 mg/dL (70-99) 167 mg/dL (70-99) Hemoglobin 10.1 g/dL (12.0-15.5) Hematocrit 29.9 % (36.0-47.0) Sodium Level 137 mmol/L (136-145) Potassium Level 3.9 mmol/L (3.5-5.1) Chloride Level 104 mmol/L (98-107) Carbon Dioxide Level 23 mmol/L (21-32) Anion Gap 10 (6-14) Blood Urea Nitrogen 11 mg/dL (7-20) Creatinine 0.9 mg/dL (0.6-1.0) Estimated GFR (Cockcroft-Gault) 62.8 Glucose Level 168 mg/dL (70-99) Calcium Level 8.1 mg/dL (8.5-10.1) Phosphorus Level 2.0 mg/dL (2.6-4.7) Magnesium Level 1.9 mg/dL (1.8-2.4) Lipase 447 U/L (73-393) Test 02/13/20 17:57 02/14/20 00:59 02/14/20 04:20 02/14/20 06:27 Glucose (Fingerstick) 150 mg/dL (70-99) 153 mg/dL (70-99) 137 mg/dL (70-99) Sodium Level 137 mmol/L (136-145) Potassium Level 4.3 mmol/L (3.5-5.1) Chloride Level 104 mmol/L (98-107) Carbon Dioxide Level 24 mmol/L (21-32) Anion Gap 9 (6-14) Blood Urea Nitrogen 13 mg/dL (7-20) Creatinine 0.9 mg/dL (0.6-1.0) Estimated GFR (Cockcroft-Gault) 62.8 Glucose Level 130 mg/dL (70-99) Calcium Level 8.2 mg/dL (8.5-10.1) Phosphorus Level 2.8 mg/dL (2.6-4.7) Magnesium Level 2.0 mg/dL (1.8-2.4) Test 02/14/20 11:48 Glucose (Fingerstick) 129 mg/dL (70-99) Laboratory Tests Test 02/13/20 17:57 02/14/20 00:59 02/14/20 04:20 02/14/20 06:27 Glucose (Fingerstick) 150 mg/dL (70-99) 153 mg/dL (70-99) 137 mg/dL (70-99) Sodium Level 137 mmol/L (136-145) Potassium Level 4.3 mmol/L (3.5-5.1) Chloride Level 104 mmol/L (98-107) Carbon Dioxide Level 24 mmol/L (21-32) Anion Gap 9 (6-14) Blood Urea Nitrogen 13 mg/dL (7-20) Creatinine 0.9 mg/dL (0.6-1.0) Estimated GFR (Cockcroft-Gault) 62.8 Glucose Level 130 mg/dL (70-99) Calcium Level 8.2 mg/dL (8.5-10.1) Phosphorus Level 2.8 mg/dL (2.6-4.7) Magnesium Level 2.0 mg/dL (1.8-2.4) Test 02/14/20 11:48 Glucose (Fingerstick) 129 mg/dL (70-99) Assessment/Plan hgb stable CT next day or 2 Justicifation of Admission Dx: Justifications for Admission: Justification of Admission Dx: Comment: (hemorrhagic pancreatitis) VINAY SANCHEZ MD 02/14/20 1311: SURGICAL PROGRESS NOTE Assessment/Plan pt seen up to bedside chair tells me she is going to have a repeat CT tomorrow per GI await those results EDWIN FRIEND APRN Feb 14, 2020 12:06 VINAY SANCHEZ MD Feb 14, 2020 13:11
[2020-02-14 15:00] VITALS: BP 126/67
--- NOTE | 2020-02-14 15:06 | NUR ---
SW following. Reviewed chart and spoke with RN. Pt has not had a BM and was started on a new medication. Pt remains on TPN but will not likely need at discharge. Pt on room air. Pt to discharge home with Yao when stable. SW to continue following.
--- NOTE | 2020-02-14 15:08 | PDOC ---
HAWA SILVEIRA ARMY MANAGER 02/14/20 1508: CARDIO Progress Notes Date and Time Date of Service 02/14/20 Time of Evaluation 1115 Subjective Subjective: No Chest Pain, No shortness of breath, No Palpitations, Other (abdominal pain improved. Thirsty) Vitals Vitals Vital Signs Date Time Temp Pulse Resp B/P (MAP) Pulse Ox O2 Delivery O2 Flow Rate FiO2 02/14/20 11:00 98.6 76 16 112/61 (78) 94 Room Air 98.6 Weight Weight [ ] Input and Output Intake and Output Intake and Output 02/14/20 07:00 Intake Total 70 ml Balance 70 ml Intake Oral 70 ml # Voids 6 Laboratory Labs Laboratory Tests Test 02/13/20 17:57 02/14/20 00:59 02/14/20 04:20 02/14/20 06:27 Glucose (Fingerstick) 150 mg/dL (70-99) 153 mg/dL (70-99) 137 mg/dL (70-99) Sodium Level 137 mmol/L (136-145) Potassium Level 4.3 mmol/L (3.5-5.1) Chloride Level 104 mmol/L (98-107) Carbon Dioxide Level 24 mmol/L (21-32) Anion Gap 9 (6-14) Blood Urea Nitrogen 13 mg/dL (7-20) Creatinine 0.9 mg/dL (0.6-1.0) Estimated GFR (Cockcroft-Gault) 62.8 Glucose Level 130 mg/dL (70-99) Calcium Level 8.2 mg/dL (8.5-10.1) Phosphorus Level 2.8 mg/dL (2.6-4.7) Magnesium Level 2.0 mg/dL (1.8-2.4) Test 02/14/20 11:48 Glucose (Fingerstick) 129 mg/dL (70-99) Physical Exam HEENT: Neck Supple W Full Motion Chest: Symmetric LUNGS: Clear to Auscultation Heart: S1S2, RRR Abdomen: Other (tenderness ) Extremities: No Edema Neurology: alert, oriented, follow commands Assessment Assessment 1. PAFIB; presently SR. Telemetry notable for few very brief very episodes of PAFIB. Event monitor earlier this month showed predominantly SR. Min HR 48, max 169. Brief runs of SVT noted. No AFIB noted. Recent 2D echo showed LVEF 55 to 60%. 2. Hemorrhagic pancreatitis: GS and GI teams following. Eliquis therapy on hold. 3. Hypertension: Controlled Recommendations Continue Amiodarone for rhythm maintenance Resume Eliquis when okay from GI, surgical standpoint Supportive care. Justicifation of Admission Dx: Justifications for Admission: Justification of Admission Dx: Comment: (hemorrhagic pancreatitis) KALA LEPE MD 02/14/20 8568: CARDIO Progress Notes Assessment Assessment Patient seen and examined. Agree with HOME APPRAISER's assessment and plan. Telemetry showed few very brief episodes of AF. Event monitor results as noted above. Continue amiodarone for antiarrhythmic therapy. Resume Eliquis when okay from surgical standpoint HAWA SILVEIRA APRN Feb 14, 2020 15:08 KALA LEPE MD Feb 14, 2020 16:59
[2020-02-14 19:18] VITALS: BP 131/72
[2020-02-14] MEDS ORDERED: DEXTROSE 70% IV SCH (22:00)
[2020-02-14] MEDS ORDERED: TOTAL PARENTERAL NUTRITION IV SCH (22:00)
[2020-02-14] MEDS ORDERED: AMINO ACID IV SCH (22:00)
[2020-02-14] MEDS ORDERED: [UNRECOGNIZED DRUG - OTHER] IV SCH (22:00)
[2020-02-14 23:44] VITALS: BP 104/54
[2020-02-15 03:57] VITALS: BP 107/57
[2020-02-15] MEDS: INSULIN LISPRO 300 UNITS/3 ML VIAL. SQ SCH ×5 (06:00→23:04)
[2020-02-15 06:41] LABS: HEMATOCRIT 27.9 % (36.0-47.0); HEMOGLOBIN 9.5 g/dL (12.0-15.5); WHITE BLOOD COUNT 8.7 x10^3/uL (4.0-11.0)
[2020-02-15 06:57] LABS: ALBUMIN 2.3 g/dL (3.4-5.0); ALBUMIN/GLOBULIN RATIO 0.6 (1.0-1.7); CALCIUM 8.1 mg/dL (8.5-10.1); GFR 55.6; MAGNESIUM 1.9 mg/dL (1.8-2.4); PHOSPHORUS 3.5 mg/dL (2.6-4.7); POTASSIUM 4.3 mmol/L (3.5-5.1); TOTAL BILIRUBIN 0.5 mg/dL (0.2-1.0); TOTAL PROTEIN 6.1 g/dL (6.4-8.2)
[2020-02-15 07:00] VITALS: BP 108/59
[2020-02-15] MEDS ORDERED: CONTRAST GIVEN. MC PRN (07:30)
[2020-02-15] MEDS ORDERED: IOHEXOL 300 MG/ML 100ML VIAL. IV ONE (07:30)
[2020-02-15] MEDS: PANTOPRAZOLE IV PUSH 40 MG VIAL. IVP SCH (09:35)
[2020-02-15] MEDS: AMIODARONE HCL 200 MG TABLET. PO SCH (09:36)
[2020-02-15] MEDS: CYANOCOBALAMIN (VITAMIN B-12) 1,000 MCG TABLET. PO SCH (09:36)
[2020-02-15] MEDS: LUBIPROSTONE 24 MCG CAPSULE PO SCH ×2 (09:37→17:00)
[2020-02-15] MEDS: DOCUSATE SODIUM 100 MG CAPSULE. PO SCH ×2 (09:37→21:21)
--- NOTE | 2020-02-15 09:56 | PDOC ---
Subjective: Subjective: No pain. Stooled several times yesterday. Just back from CT. Questions about pancreatitis, diet. Objective: Vital Signs: Vital Signs Date Time Temp Pulse Resp B/P (MAP) Pulse Ox O2 Delivery O2 Flow Rate FiO2 02/15/20 09:36 71 108/59 02/15/20 07:00 98.7 14 95 Room Air 98.7 Labs: Laboratory Tests Test 02/14/20 11:48 02/14/20 18:00 02/15/20 00:20 02/15/20 06:20 Glucose (Fingerstick) 129 mg/dL 135 mg/dL 145 mg/dL 121 mg/dL White Blood Count 8.7 x10^3/uL Red Blood Count 3.00 x10^6/uL Hemoglobin 9.5 g/dL Hematocrit 27.9 % Mean Corpuscular Volume 93 fL Mean Corpuscular Hemoglobin 32 pg Mean Corpuscular Hemoglobin Concent 34 g/dL Red Cell Distribution Width 14.0 % Platelet Count 278 x10^3/uL Sodium Level 136 mmol/L Potassium Level 4.3 mmol/L Chloride Level 102 mmol/L Carbon Dioxide Level 26 mmol/L Anion Gap 8 Blood Urea Nitrogen 13 mg/dL Creatinine 1.0 mg/dL Estimated GFR (Cockcroft-Gault) 55.6 BUN/Creatinine Ratio 13 Glucose Level 121 mg/dL Calcium Level 8.1 mg/dL Phosphorus Level 3.5 mg/dL Magnesium Level 1.9 mg/dL Total Bilirubin 0.5 mg/dL Aspartate Amino Transf (AST/SGOT) 73 U/L Alanine Aminotransferase (ALT/SGPT) 45 U/L Alkaline Phosphatase 57 U/L Total Protein 6.1 g/dL Albumin 2.3 g/dL Albumin/Globulin Ratio 0.6 Imaging: CT A/P 02/14 pending PE: GEN: NAD LUNGS: CTAB HEART: RRR ABD: quiet, soft, non-tender NEURO/PSYCH: A & O 3 A/P: Pancreatitis - on TPN, recent cholecystectomy Anemia - stable H/o GERD and constipation -- Await interval CT. Now stooling - adjust constipation treatment as necessary. Continue PPI. Justicifation of Admission Dx: Justifications for Admission: Justification of Admission Dx: Comment: (hemorrhagic pancreatitis) RONNI BOATENG Feb 15, 2020 09:55
--- NOTE | 2020-02-15 10:06 | PDOC ---
PROGRESS NOTES Subjective Subjective covering for dr Howard Objective Objective Vital Signs Date Time Temp Pulse Resp B/P (MAP) Pulse Ox O2 Delivery O2 Flow Rate FiO2 02/15/20 09:36 71 108/59 02/15/20 07:00 98.7 14 95 Room Air 98.7 Intake and Output 02/15/20 07:00 Intake Total 120 ml Balance 120 ml Intake Oral 120 ml # Voids 4 # Bowel Movements 5 Physical Exam Abdomen: Soft, No tenderness Heart: Regular rate Extremities: No edema General: Alert, Oriented X3, Cooperative HEENT: PERRLA Lungs: Clear to auscultation Psych/Mental Status: Mood NL Assessment Assessment ASSESSMENT/PLAN: CT scan abd and pelvis today. TPN for now. pt feels better today. 1. Hemorrhagic pancreatitis with pseudocyst, for which she is now on TPN. 2. Paroxysmal atrial fibrillation, currently in sinus rhythm. Her apixaban was discontinued. 3. Hypertension, seems to be well controlled. 4. Constipation for which she is now on Amitiza. Comment Review of Relevant I have reviewed the following items mine (where applicable) has been applied. Labs Laboratory Tests Test 02/14/20 11:48 02/14/20 18:00 02/15/20 00:20 02/15/20 06:20 Glucose (Fingerstick) 129 mg/dL (70-99) 135 mg/dL (70-99) 145 mg/dL (70-99) 121 mg/dL (70-99) White Blood Count 8.7 x10^3/uL (4.0-11.0) Red Blood Count 3.00 x10^6/uL (3.50-5.40) Hemoglobin 9.5 g/dL (12.0-15.5) Hematocrit 27.9 % (36.0-47.0) Mean Corpuscular Volume 93 fL (79-100) Mean Corpuscular Hemoglobin 32 pg (25-35) Mean Corpuscular Hemoglobin Concent 34 g/dL (31-37) Red Cell Distribution Width 14.0 % (11.5-14.5) Platelet Count 278 x10^3/uL (140-400) Sodium Level 136 mmol/L (136-145) Potassium Level 4.3 mmol/L (3.5-5.1) Chloride Level 102 mmol/L (98-107) Carbon Dioxide Level 26 mmol/L (21-32) Anion Gap 8 (6-14) Blood Urea Nitrogen 13 mg/dL (7-20) Creatinine 1.0 mg/dL (0.6-1.0) Estimated GFR (Cockcroft-Gault) 55.6 BUN/Creatinine Ratio 13 (6-20) Glucose Level 121 mg/dL (70-99) Calcium Level 8.1 mg/dL (8.5-10.1) Phosphorus Level 3.5 mg/dL (2.6-4.7) Magnesium Level 1.9 mg/dL (1.8-2.4) Total Bilirubin 0.5 mg/dL (0.2-1.0) Aspartate Amino Transf (AST/SGOT) 73 U/L (15-37) Alanine Aminotransferase (ALT/SGPT) 45 U/L (14-59) Alkaline Phosphatase 57 U/L (46-116) Total Protein 6.1 g/dL (6.4-8.2) Albumin 2.3 g/dL (3.4-5.0) Albumin/Globulin Ratio 0.6 (1.0-1.7) Medications Current Medications Info (CONTRAST GIVEN -- Rx MONITORING) 1 each PRN DAILY PRN MC SEE COMMENTS; Start 02/15/20 at 07:30; Stop 02/17/20 at 07:29 Iohexol (Omnipaque 300 Mg/ml) 60 ml 1X ONCE IV Last administered on 02/15/20at 09:10; Start 02/15/20 at 07:30; Stop 02/15/20 at 07:31; Status DC Lubiprostone (Amitiza) 24 mcg BIDWMEALS PO Last administered on 02/14/20at 16:50; Start 02/14/20 at 11:00 Sodium Chloride 110 meq/Potassium Acetate 70 meq/ Potassium Phosphate 24 mmol/ Magnesium Sulfate 14 meq/Calcium Gluconate 10 meq/ Multivitamins 10 ml/Chromium/ Copper/Manganese/ Seleni/Zn 1 ml/ Total Parenteral Nutrition/Amino Acids/Dextrose/ Fat Emulsion Intravenous 1,512 ml @ 63 mls/hr TPN CONT IV Last administered on 02/14/20at 21:02; Start 02/14/20 at 22:00; Stop 02/15/20 at 21:59 Vitals/I & O Vital Sign - Last 24 Hours 02/14/20 02/14/20 02/14/20 02/14/20 10:30 11:00 15:00 19:18 Temp 98.6 99.5 99.1 98.6 99.5 99.1 Pulse 76 81 89 Resp 16 16 14 16 B/P (MAP) 112/61 (78) 126/67 (86) 131/72 (91) Pulse Ox 94 96 95 O2 Delivery Room Air Room Air Room Air Room Air 02/14/20 02/14/20 02/14/20 02/15/20 20:00 20:48 23:44 03:57 Temp 98.3 98.6 98.3 98.6 Pulse 89 70 72 Resp 16 18 B/P (MAP) 131/72 104/54 (71) 107/57 (74) Pulse Ox 95 95 O2 Delivery Room Air Room Air Room Air 02/15/20 02/15/20 07:00 09:36 Temp 98.7 98.7 Pulse 71 71 Resp 14 B/P (MAP) 108/59 (75) 108/59 Pulse Ox 95 O2 Delivery Room Air Intake and Output 02/14/20 02/14/20 02/15/20 15:00 23:00 07:00 Intake Total 0 ml 0 ml 120 ml Balance 0 ml 0 ml 120 ml Justicifation of Admission Dx: Justifications for Admission: Justification of Admission Dx: Comment: (hemorrhagic pancreatitis) SRAVANI HER MD Feb 15, 2020 10:06
--- NOTE | 2020-02-15 10:08 | RAD ---
CT scan of the abdomen and pelvis with contrast 02/15/2020 CLINICAL HISTORY: History of pancreatitis. TECHNIQUE: After the intravenous administration of 60 cc of Omnipaque 300 only, contiguous, 5 mm axial sections were obtained through the abdomen and pelvis. One or more of the following individualized dose reduction techniques were utilized for this study: 1. Automated exposure control. 2. Adjustment of the mA and/or kV according to patient size. 3. Use of iterative reconstruction technique. FINDINGS: Comparison study is dated 02/11/2020. Images through the lung bases demonstrate mild cardiomegaly. Minimal dependent subsegmental atelectasis is seen bilaterally. Segmental atelectasis is seen involving both lower lobes. The liver, spleen, and adrenal glands are within normal limits. A small area of decreased attenuation is seen involving the superior pole the right kidney which may represent an area of scarring. 2 nonobstructing calculi are seen involving the left kidney which measure 3 mm in size. The majority of the body/tail of pancreas is poorly defined and enlarged. A somewhat oval-shaped low-attenuation structure is seen in this area which measures 15.7 x 7.5 x 6.9 cm in transverse, craniocaudal and AP dimensions. This is consistent with a developing pseudocyst. This has become better defined since the previous examination. The hemorrhage in this area has decreased. A poorly defined phlegmon is seen more superiorly within the left upper quadrant of the abdomen which has improved slightly. No additional pancreatic pseudocyst is seen. Surgical clips are seen within the gallbladder fossa consistent with a cholecystectomy. Atherosclerotic calcification of the abdominal aorta is seen. The abdominal aorta tapers normally. There is no evidence of bowel obstruction. The appendix is within normal limits. Images through the pelvis demonstrate the urinary bladder distended with urine. Calcifications are seen within the pelvis consistent with phleboliths. No free fluid is seen. The osseous structures are unchanged. IMPRESSION: Findings are again seen consistent with the patient's history of acute pancreatitis. The phlegmon within the left upper quadrant of the abdomen has improved. There appears to be a developing pseudocyst in the region of the body/tail of pancreas which measures 15.7 cm in greatest diameter. No additional pancreatic pseudocyst is seen. Electronically signed by: Fausto Barnes MD (02/15/2020 10:05 AM) [id number]
--- NOTE | 2020-02-15 10:54 | NUR ---
SW following. Discussed with RN, pt still NPO and TPN. Pt had CT of abdomen this morning to determine how pancreas is doing. Possibility of increasing diet soon. Plan is for [facility] at discharge. SW will continue to follow.
[2020-02-15 11:00] VITALS: BP 109/55
[2020-02-15] MEDS: TPN PER PHARMACY MC PRN (11:26)
--- NOTE | 2020-02-15 11:26 | NUR ---
Pharmacy TPN Dosing Note S: MICK CAMPOS is a 64 year old F Currently receiving Central Continuous TPN started 02/11/20 B:Pertinent PMH: NPO, Pancreatitis Height: 5 feet, 6 inches Weight: 95.584070 kg Current diet: NPO LABS: Sodium: 136 Potassium: 4.3 Chloride: 102 Calcium: 8.1 Corrected Calcium: 9.46 Magnesium: 1.9 CO2: 26 SCr: 1 Glucose: 121-145 Albumin: 2.3 AST: 73 ALT: 45 TPN FORMULA: TPN TYPE: Central Continuous AMINO ACIDS: 60 gm DEXTROSE: 195 gm LIPIDS: 20 gm SODIUM CHLORIDE: 110 mEq POTASSIUM ACETATE: 70 mEq POTASSIUM PHOSPHATE: 24 mmol MAGNESIUM: 14 mEq CALCIUM: 10 mEq MULTIPLE VITAMIN: 10 ml TRACE ELEMENTS: 1 ml(s) TPN PLAN: All electrolytes WNL. R: Continue same TPN formula. Will monitor electrolytes, glucose, and tolerance to TPN. MAHNAZ GERONIMO ROPER [facility], 02/15/20 1126
[2020-02-15] MEDS: METOPROLOL TART IMMED RELEASE 50 MG TABLET. PO SCH (11:30)
--- NOTE | 2020-02-15 12:46 | PDOC ---
HAWA SILVEIRA STRIPPER SHOVEL OPERATOR 02/15/20 1246: CARDIO Progress Notes Date and Time Date of Service 02/15/20 Time of Evaluation 1235 Subjective Subjective: No Chest Pain, No shortness of breath, No Palpitations, Other (abdominal pain improved. tolerate clears today) Vitals Vitals Vital Signs Date Time Temp Pulse Resp B/P (MAP) Pulse Ox O2 Delivery O2 Flow Rate FiO2 02/15/20 11:00 98.6 69 16 109/55 (73) 95 Room Air 98.6 Weight Weight [ ] Input and Output Intake and Output Intake and Output 02/15/20 06:59 Intake Total 120 ml Balance 120 ml Intake Oral 120 ml # Voids 4 # Bowel Movements 5 Laboratory Labs Laboratory Tests Test 02/14/20 18:00 02/15/20 00:20 02/15/20 06:20 02/15/20 11:34 Glucose (Fingerstick) 135 mg/dL (70-99) 145 mg/dL (70-99) 121 mg/dL (70-99) 121 mg/dL (70-99) White Blood Count 8.7 x10^3/uL (4.0-11.0) Red Blood Count 3.00 x10^6/uL (3.50-5.40) Hemoglobin 9.5 g/dL (12.0-15.5) Hematocrit 27.9 % (36.0-47.0) Mean Corpuscular Volume 93 fL (79-100) Mean Corpuscular Hemoglobin 32 pg (25-35) Mean Corpuscular Hemoglobin Concent 34 g/dL (31-37) Red Cell Distribution Width 14.0 % (11.5-14.5) Platelet Count 278 x10^3/uL (140-400) Sodium Level 136 mmol/L (136-145) Potassium Level 4.3 mmol/L (3.5-5.1) Chloride Level 102 mmol/L (98-107) Carbon Dioxide Level 26 mmol/L (21-32) Anion Gap 8 (6-14) Blood Urea Nitrogen 13 mg/dL (7-20) Creatinine 1.0 mg/dL (0.6-1.0) Estimated GFR (Cockcroft-Gault) 55.6 BUN/Creatinine Ratio 13 (6-20) Glucose Level 121 mg/dL (70-99) Calcium Level 8.1 mg/dL (8.5-10.1) Phosphorus Level 3.5 mg/dL (2.6-4.7) Magnesium Level 1.9 mg/dL (1.8-2.4) Total Bilirubin 0.5 mg/dL (0.2-1.0) Aspartate Amino Transf (AST/SGOT) 73 U/L (15-37) Alanine Aminotransferase (ALT/SGPT) 45 U/L (14-59) Alkaline Phosphatase 57 U/L (46-116) Total Protein 6.1 g/dL (6.4-8.2) Albumin 2.3 g/dL (3.4-5.0) Albumin/Globulin Ratio 0.6 (1.0-1.7) Physical Exam HEENT: Neck Supple W Full Motion Chest: Symmetric LUNGS: Clear to Auscultation Heart: S1S2, RRR Abdomen: Other (soft ) Extremities: No Edema Neurology: alert, oriented, follow commands Assessment Assessment 1. PAFIB; presently SR. Telemetry notable for few very brief episodes of PAFIB. Event monitor earlier this month showed predominantly SR. Min HR 48, max 169. Brief runs of SVT noted. No AFIB noted. Recent 2D echo showed LVEF 55 to 60%. 2. Hemorrhagic pancreatitis: Eliquis therapy on hold. Repeat CT c/w acute pancreatitis and pseudocyst noted. GS and GI teams following. 3. Hypertension: Controlled Recommendations Continue Amiodarone for rhythm maintenance Decrease metoprolol to 25mg BID. Held this morning due to low end BP. Okay to hold Eliquis. Resume Eliquis when okay from GI, surgical standpoint Supportive care. Justicifation of Admission Dx: Justifications for Admission: Justification of Admission Dx: Comment: (hemorrhagic pancreatitis) KALA LEPE MD 02/15/20 7208: CARDIO Progress Notes Assessment Assessment Patient seen and examined. Agree with FOOD COUNTER WORKER's assessment and plan. Telemetry showed few brief episodes of AF. Recent event monitor did not show any significant AF burden as noted above. Recent 2D echo showed normal LV systolic function. Continue amiodarone for rhythm maintenance. Resume Eliquis when okay from GS standpoint. HAWA SILVEIRA APRN Feb 15, 2020 12:46 KALA LEPE MD Feb 15, 2020 17:14
--- NOTE | 2020-02-15 13:08 | PDOC ---
SURGICAL PROGRESS NOTE Subjective up to chair just had a clear liquid diet for lunch Vital Signs Vital Signs Date Time Temp Pulse Resp B/P (MAP) Pulse Ox O2 Delivery O2 Flow Rate FiO2 02/15/20 11:00 98.6 69 16 109/55 (73) 95 Room Air 98.6 I&O Intake and Output 02/15/20 07:00 Intake Total 120 ml Balance 120 ml Intake Oral 120 ml # Voids 4 # Bowel Movements 5 PATIENT HAS A SUBRAMANIAN: No General: Alert, Oriented X3, No acute distress Lungs: Normal air movement Labs Laboratory Tests Test 02/13/20 17:57 02/14/20 00:59 02/14/20 04:20 02/14/20 06:27 Glucose (Fingerstick) 150 mg/dL (70-99) 153 mg/dL (70-99) 137 mg/dL (70-99) Sodium Level 137 mmol/L (136-145) Potassium Level 4.3 mmol/L (3.5-5.1) Chloride Level 104 mmol/L (98-107) Carbon Dioxide Level 24 mmol/L (21-32) Anion Gap 9 (6-14) Blood Urea Nitrogen 13 mg/dL (7-20) Creatinine 0.9 mg/dL (0.6-1.0) Estimated GFR (Cockcroft-Gault) 62.8 Glucose Level 130 mg/dL (70-99) Calcium Level 8.2 mg/dL (8.5-10.1) Phosphorus Level 2.8 mg/dL (2.6-4.7) Magnesium Level 2.0 mg/dL (1.8-2.4) Test 02/14/20 11:48 02/14/20 18:00 02/15/20 00:20 02/15/20 06:20 Glucose (Fingerstick) 129 mg/dL (70-99) 135 mg/dL (70-99) 145 mg/dL (70-99) 121 mg/dL (70-99) White Blood Count 8.7 x10^3/uL (4.0-11.0) Red Blood Count 3.00 x10^6/uL (3.50-5.40) Hemoglobin 9.5 g/dL (12.0-15.5) Hematocrit 27.9 % (36.0-47.0) Mean Corpuscular Volume 93 fL (79-100) Mean Corpuscular Hemoglobin 32 pg (25-35) Mean Corpuscular Hemoglobin Concent 34 g/dL (31-37) Red Cell Distribution Width 14.0 % (11.5-14.5) Platelet Count 278 x10^3/uL (140-400) Sodium Level 136 mmol/L (136-145) Potassium Level 4.3 mmol/L (3.5-5.1) Chloride Level 102 mmol/L (98-107) Carbon Dioxide Level 26 mmol/L (21-32) Anion Gap 8 (6-14) Blood Urea Nitrogen 13 mg/dL (7-20) Creatinine 1.0 mg/dL (0.6-1.0) Estimated GFR (Cockcroft-Gault) 55.6 BUN/Creatinine Ratio 13 (6-20) Glucose Level 121 mg/dL (70-99) Calcium Level 8.1 mg/dL (8.5-10.1) Phosphorus Level 3.5 mg/dL (2.6-4.7) Magnesium Level 1.9 mg/dL (1.8-2.4) Total Bilirubin 0.5 mg/dL (0.2-1.0) Aspartate Amino Transf (AST/SGOT) 73 U/L (15-37) Alanine Aminotransferase (ALT/SGPT) 45 U/L (14-59) Alkaline Phosphatase 57 U/L (46-116) Total Protein 6.1 g/dL (6.4-8.2) Albumin 2.3 g/dL (3.4-5.0) Albumin/Globulin Ratio 0.6 (1.0-1.7) Test 02/15/20 11:34 Glucose (Fingerstick) 121 mg/dL (70-99) Laboratory Tests Test 02/14/20 18:00 02/15/20 00:20 02/15/20 06:20 02/15/20 11:34 Glucose (Fingerstick) 135 mg/dL (70-99) 145 mg/dL (70-99) 121 mg/dL (70-99) 121 mg/dL (70-99) White Blood Count 8.7 x10^3/uL (4.0-11.0) Red Blood Count 3.00 x10^6/uL (3.50-5.40) Hemoglobin 9.5 g/dL (12.0-15.5) Hematocrit 27.9 % (36.0-47.0) Mean Corpuscular Volume 93 fL (79-100) Mean Corpuscular Hemoglobin 32 pg (25-35) Mean Corpuscular Hemoglobin Concent 34 g/dL (31-37) Red Cell Distribution Width 14.0 % (11.5-14.5) Platelet Count 278 x10^3/uL (140-400) Sodium Level 136 mmol/L (136-145) Potassium Level 4.3 mmol/L (3.5-5.1) Chloride Level 102 mmol/L (98-107) Carbon Dioxide Level 26 mmol/L (21-32) Anion Gap 8 (6-14) Blood Urea Nitrogen 13 mg/dL (7-20) Creatinine 1.0 mg/dL (0.6-1.0) Estimated GFR (Cockcroft-Gault) 55.6 BUN/Creatinine Ratio 13 (6-20) Glucose Level 121 mg/dL (70-99) Calcium Level 8.1 mg/dL (8.5-10.1) Phosphorus Level 3.5 mg/dL (2.6-4.7) Magnesium Level 1.9 mg/dL (1.8-2.4) Total Bilirubin 0.5 mg/dL (0.2-1.0) Aspartate Amino Transf (AST/SGOT) 73 U/L (15-37) Alanine Aminotransferase (ALT/SGPT) 45 U/L (14-59) Alkaline Phosphatase 57 U/L (46-116) Total Protein 6.1 g/dL (6.4-8.2) Albumin 2.3 g/dL (3.4-5.0) Albumin/Globulin Ratio 0.6 (1.0-1.7) I have reviewed the following CT abd/pelvis done this AM is reviewed Assessment/Plan hemorrhagic pancreatitis, pseudocyst no new surg recs Justicifation of Admission Dx: Justifications for Admission: Justification of Admission Dx: Comment: (hemorrhagic pancreatitis) VINAY SANCHEZ MD Feb 15, 2020 13:07
[2020-02-15 15:00] VITALS: BP 123/58
[2020-02-15 19:37] VITALS: BP 116/83
[2020-02-15] MEDS: METOPROLOL TART IMMED RELEASE 25 MG TABLET. PO SCH (21:22)
[2020-02-15] MEDS ORDERED: [UNRECOGNIZED DRUG - OTHER] IV SCH (22:00)
[2020-02-15] MEDS ORDERED: DEXTROSE 70% IV SCH (22:00)
[2020-02-15] MEDS ORDERED: AMINO ACID IV SCH (22:00)
[2020-02-15] MEDS ORDERED: TOTAL PARENTERAL NUTRITION IV SCH (22:00)
[2020-02-15 23:35] VITALS: BP 103/56
[2020-02-16 03:19] VITALS: BP 109/61
[2020-02-16] MEDS: INSULIN LISPRO 300 UNITS/3 ML VIAL. SQ SCH ×4 (06:26→23:55)
[2020-02-16 07:38] VITALS: BP 119/71
[2020-02-16] MEDS: LUBIPROSTONE 24 MCG CAPSULE PO SCH ×2 (08:00→17:00)
[2020-02-16] MEDS: PANTOPRAZOLE IV PUSH 40 MG VIAL. IVP SCH (08:30)
[2020-02-16] MEDS: DOCUSATE SODIUM 100 MG CAPSULE. PO SCH ×2 (08:30→21:00)
[2020-02-16] MEDS: METOPROLOL TART IMMED RELEASE 25 MG TABLET. PO SCH ×2 (08:31→21:00)
[2020-02-16] MEDS: CYANOCOBALAMIN (VITAMIN B-12) 1,000 MCG TABLET. PO SCH (08:31)
[2020-02-16] MEDS: AMIODARONE HCL 200 MG TABLET. PO SCH (08:31)
--- NOTE | 2020-02-16 09:49 | PDOC ---
Subjective: Subjective: Tolerating clears - no increase in abd pain. Has questions re: plan moving forward - ?need TPN, etc. Objective: Objective: D/w Dr. Mcnally - possible DC in next day or two. Vital Signs: Vital Signs Date Time Temp Pulse Resp B/P (MAP) Pulse Ox O2 Delivery O2 Flow Rate FiO2 02/16/20 08:31 66 119/71 02/16/20 07:38 98.0 16 94 Room Air 98.0 Labs: Laboratory Tests Test 02/15/20 11:34 02/15/20 17:42 02/15/20 23:00 02/16/20 06:06 Glucose (Fingerstick) 121 mg/dL 130 mg/dL 124 mg/dL 121 mg/dL Imaging: CT A/P IMPRESSION: Findings are again seen consistent with the patient's history of acute pancreatitis. The phlegmon within the left upper quadrant of the abdomen has improved. There appears to be a developing pseudocyst in the region of the body/tail of pancreas which measures 15.7 cm in greatest diameter. No additional pancreatic pseudocyst is seen. PE: GEN: NAD LUNGS: CTAB HEART: RRR ABD: S/ND/NT NEURO/PSYCH: A & O 3 A/P: Pancreatitis - interval CT as above w/ improved phlegmon, developing pseudocyst -- Tolerating clears, will advance diet more. Will review w/ Dr. Nobles expectations for DC - timing, ?home TPN, interval imaging, possible need for endoscopic drainage, etc. Justicifation of Admission Dx: Justifications for Admission: Justification of Admission Dx: Comment: (hemorrhagic pancreatitis) RONNI BOATENG Feb 16, 2020 09:49
--- NOTE | 2020-02-16 09:52 | PDOC ---
EDWIN FRIEND ROD MACHINE OPERATOR 02/16/20 0952: SURGICAL PROGRESS NOTE Subjective no pain tolerating clears advancing to fulls Vital Signs Vital Signs Date Time Temp Pulse Resp B/P (MAP) Pulse Ox O2 Delivery O2 Flow Rate FiO2 02/16/20 08:31 66 119/71 02/16/20 07:38 98.0 16 94 Room Air 98.0 I&O Intake and Output 02/16/20 07:00 Intake Total 980 ml Balance 980 ml Intake Oral 980 ml # Voids 7 General: Alert, Oriented X3, Cooperative Abdomen: Soft, No tenderness Labs Laboratory Tests Test 02/14/20 11:48 02/14/20 18:00 02/15/20 00:20 02/15/20 06:20 Glucose (Fingerstick) 129 mg/dL (70-99) 135 mg/dL (70-99) 145 mg/dL (70-99) 121 mg/dL (70-99) White Blood Count 8.7 x10^3/uL (4.0-11.0) Red Blood Count 3.00 x10^6/uL (3.50-5.40) Hemoglobin 9.5 g/dL (12.0-15.5) Hematocrit 27.9 % (36.0-47.0) Mean Corpuscular Volume 93 fL (79-100) Mean Corpuscular Hemoglobin 32 pg (25-35) Mean Corpuscular Hemoglobin Concent 34 g/dL (31-37) Red Cell Distribution Width 14.0 % (11.5-14.5) Platelet Count 278 x10^3/uL (140-400) Sodium Level 136 mmol/L (136-145) Potassium Level 4.3 mmol/L (3.5-5.1) Chloride Level 102 mmol/L (98-107) Carbon Dioxide Level 26 mmol/L (21-32) Anion Gap 8 (6-14) Blood Urea Nitrogen 13 mg/dL (7-20) Creatinine 1.0 mg/dL (0.6-1.0) Estimated GFR (Cockcroft-Gault) 55.6 BUN/Creatinine Ratio 13 (6-20) Glucose Level 121 mg/dL (70-99) Calcium Level 8.1 mg/dL (8.5-10.1) Phosphorus Level 3.5 mg/dL (2.6-4.7) Magnesium Level 1.9 mg/dL (1.8-2.4) Total Bilirubin 0.5 mg/dL (0.2-1.0) Aspartate Amino Transf (AST/SGOT) 73 U/L (15-37) Alanine Aminotransferase (ALT/SGPT) 45 U/L (14-59) Alkaline Phosphatase 57 U/L (46-116) Total Protein 6.1 g/dL (6.4-8.2) Albumin 2.3 g/dL (3.4-5.0) Albumin/Globulin Ratio 0.6 (1.0-1.7) Test 02/15/20 11:34 02/15/20 17:42 02/15/20 23:00 02/16/20 06:06 Glucose (Fingerstick) 121 mg/dL (70-99) 130 mg/dL (70-99) 124 mg/dL (70-99) 121 mg/dL (70-99) Laboratory Tests Test 02/15/20 11:34 02/15/20 17:42 02/15/20 23:00 02/16/20 06:06 Glucose (Fingerstick) 121 mg/dL (70-99) 130 mg/dL (70-99) 124 mg/dL (70-99) 121 mg/dL (70-99) Assessment/Plan labs stable tolerating diet improving Justicifation of Admission Dx: Justifications for Admission: Justification of Admission Dx: Comment: (hemorrhagic pancreatitis) VINAY SANCHEZ MD 02/16/20 1056: SURGICAL PROGRESS NOTE Assessment/Plan pt seen as above will ask Dr Moe to assume care when I leave tomorrow EDWIN FRIEND APRN Feb 16, 2020 09:52 VINAY SANCHEZ MD Feb 16, 2020 10:56
--- NOTE | 2020-02-16 10:22 | PDOC ---
PROGRESS NOTES Subjective Subjective tolerating clear liquid diet Objective Objective Vital Signs Date Time Temp Pulse Resp B/P (MAP) Pulse Ox O2 Delivery O2 Flow Rate FiO2 02/16/20 08:31 66 119/71 02/16/20 07:38 98.0 16 94 Room Air 98.0 Intake and Output 02/16/20 07:00 Intake Total 980 ml Balance 980 ml Intake Oral 980 ml # Voids 7 Physical Exam Abdomen: Soft, No tenderness Heart: Regular rate Extremities: No edema General: Alert, Oriented X3, Cooperative HEENT: PERRLA Lungs: Normal air movement MUSCULOSKELETAL: No deformity Neck: Supple Neuro: Normal speech Psych/Mental Status: Mental status NL, Mood NL Skin: No breakdown Assessment Assessment ASSESSMENT/PLAN: CT scan abd and pelvis+ve for developing pseudo cyst TPN for now.start on clear liquid diet pt feels better today. 1. Hemorrhagic pancreatitis with pseudocyst, for which she is now on TPN. 2. Paroxysmal atrial fibrillation, currently in sinus rhythm. Her apixaban was discontinued. 3. Hypertension, seems to be well controlled. 4. Constipation for which she is now on Amitiza. Comment Review of Relevant I have reviewed the following items mine (where applicable) has been applied. Labs Laboratory Tests Test 02/15/20 11:34 02/15/20 17:42 02/15/20 23:00 02/16/20 06:06 Glucose (Fingerstick) 121 mg/dL (70-99) 130 mg/dL (70-99) 124 mg/dL (70-99) 121 mg/dL (70-99) Medications Current Medications Metoprolol Tartrate (Lopressor) 25 mg BID PO Last administered on 02/16/20at 08:31; Start 02/15/20 at 21:00 Pantoprazole Sodium (Protonix) 40 mg DAILYAC PO ; Start 02/17/20 at 07:30 Sodium Chloride 110 meq/Potassium Acetate 70 meq/ Potassium Phosphate 24 mmol/ Magnesium Sulfate 14 meq/Calcium Gluconate 10 meq/ Multivitamins 10 ml/Chromium/ Copper/Manganese/ Seleni/Zn 1 ml/ Total Parenteral Nutrition/Amino Acids/Dextrose/ Fat Emulsion Intravenous 1,512 ml @ 63 mls/hr TPN CONT IV Last administered on 02/15/20at 21:22; Start 02/15/20 at 22:00; Stop 02/16/20 at 21:59 Vitals/I & O Vital Sign - Last 24 Hours 02/15/20 02/15/20 02/15/20 02/15/20 11:00 11:30 15:00 19:37 Temp 98.6 98.8 98.6 98.6 98.8 98.6 Pulse 69 69 76 75 Resp 16 16 16 B/P (MAP) 109/55 (73) 109/55 123/58 (79) 116/83 (94) Pulse Ox 95 97 96 O2 Delivery Room Air Room Air Room Air 02/15/20 02/15/20 02/15/20 02/16/20 20:10 21:22 23:35 03:19 Temp 98.4 98.0 98.4 98.0 Pulse 75 65 71 Resp 16 16 B/P (MAP) 116/83 103/56 (72) 109/61 (77) Pulse Ox 95 97 O2 Delivery Room Air Room Air Room Air 02/16/20 02/16/20 02/16/20 07:38 08:31 08:31 Temp 98.0 98.0 Pulse 66 66 66 Resp 16 B/P (MAP) 119/71 (87) 119/71 119/71 Pulse Ox 94 O2 Delivery Room Air Intake and Output 02/15/20 02/15/20 02/16/20 15:00 23:00 07:00 Intake Total 360 ml 120 ml 500 ml Balance 360 ml 120 ml 500 ml Justicifation of Admission Dx: Justifications for Admission: Justification of Admission Dx: Comment: (hemorrhagic pancreatitis) SRAVANI HER MD Feb 16, 2020 10:22
--- NOTE | 2020-02-16 11:17 | PDOC ---
CARDIO Progress Notes Date and Time Date of Service 02/16/20 Subjective Subjective: No Chest Pain, No shortness of breath, No Palpitations, Other (abdominal pain improved. tolerate clears today) Vitals Vitals Vital Signs Date Time Temp Pulse Resp B/P (MAP) Pulse Ox O2 Delivery O2 Flow Rate FiO2 02/16/20 08:31 66 119/71 02/16/20 07:38 98.0 16 94 Room Air 98.0 Weight Weight [ ] Input and Output Intake and Output Intake and Output 02/16/20 06:59 Intake Total 980 ml Balance 980 ml Intake Oral 980 ml # Voids 7 Laboratory Labs Laboratory Tests Test 02/15/20 11:34 02/15/20 17:42 02/15/20 23:00 02/16/20 06:06 Glucose (Fingerstick) 121 mg/dL (70-99) 130 mg/dL (70-99) 124 mg/dL (70-99) 121 mg/dL (70-99) Physical Exam HEENT: Neck Supple W Full Motion Chest: Symmetric LUNGS: Clear to Auscultation Heart: S1S2, RRR Abdomen: Other (soft ) Extremities: No Edema Neurology: alert, oriented, follow commands Assessment Assessment 1. PAFIB; presently SR. Telemetry notable for few very brief episodes of PAFIB. Event monitor earlier this month showed predominantly SR. Min HR 48, max 169. Brief runs of SVT noted. No AFIB noted. Recent 2D echo showed LVEF 55 to 60%. 2. Hemorrhagic pancreatitis: Eliquis therapy on hold. Repeat CT c/w acute pancreatitis and pseudocyst noted. GS and GI teams following. 3. Hypertension: Controlled Recommendations Continue Amiodarone for rhythm maintenance Metoprolol for rate control Okay to hold Eliquis. Resume Eliquis when okay from GI, surgical standpoint Supportive care. Justicifation of Admission Dx: Justifications for Admission: Justification of Admission Dx: Comment: (hemorrhagic pancreatitis) HAWA SILVEIRA APRN Feb 16, 2020 11:16
[2020-02-16 11:45] VITALS: BP 116/70
[2020-02-16] MEDS: TPN PER PHARMACY MC PRN (12:38)
--- NOTE | 2020-02-16 12:38 | NUR ---
Pharmacy TPN Dosing Note S: MICK CAMPOS is a 64 year old F Currently receiving Central Continuous TPN started 02/11/20 B:Pertinent PMH: NPO, Pancreatitis Height: 5 feet, 6 inches Weight: 95.207469 kg Current diet: NPO LABS: Sodium: 136 Potassium: 4.3 Chloride: 102 Calcium: 8.1 Corrected Calcium: 9.46 Magnesium: 1.9 CO2: 26 SCr: 1 Glucose: 121-124 Albumin: 2.3 AST: 73 ALT: 45 TPN FORMULA: TPN TYPE: Central Continuous AMINO ACIDS: 60 gm DEXTROSE: 195 gm LIPIDS: 20 gm SODIUM CHLORIDE: 110 mEq SODIUM ACETATE: - mEq SODIUM PHOSPHATE: - mmol POTASSIUM CHLORIDE: - mEq POTASSIUM ACETATE: 70 mEq POTASSIUM PHOSPHATE: 24 mmol MAGNESIUM: 14 mEq CALCIUM: 10 mEq INSULIN: - units MULTIPLE VITAMIN: 10 ml TRACE ELEMENTS: 1 ml ml(s) TPN PLAN: No labs today; BG WNL. No change to TPN. BMP in AM. R: Continue TPN ABOVE. Will monitor electrolytes, glucose, and tolerance to TPN. [facility], 02/16/20 1725
[2020-02-16 15:00] VITALS: BP 118/66
--- NOTE | 2020-02-16 15:10 | NUR ---
SW following. Reviewed chart and spoke with RN. JOE met with pt who hopes to discharge in the next few days. Wound care following this pt. Pt has been accepted for HH with [facility] and JOE coordinated care with Jennifer sood. JOE also phoned and faxed a referral to [facility] [phone], (fax) per pt request to check on benefits for home TPN. JOE completed Patient Choice of Vendor form. JOE spoke with Zeferino from [facility] and if pt discharges home on TPN she will owe $26.50 daily once her $350 deductible is met. Pt has a $5,000 [id number] max per Zeferino. JOE provided pt with this information. SW to continue following.
[2020-02-16 19:00] VITALS: BP 107/65
[2020-02-16] MEDS ORDERED: TOTAL PARENTERAL NUTRITION IV SCH (22:00)
[2020-02-16] MEDS ORDERED: DEXTROSE 70% IV SCH (22:00)
[2020-02-16] MEDS ORDERED: [UNRECOGNIZED DRUG - OTHER] IV SCH (22:00)
[2020-02-16] MEDS ORDERED: AMINO ACID IV SCH (22:00)
[2020-02-16 23:00] VITALS: BP 110/51
[2020-02-17 03:00] VITALS: BP 101/53
[2020-02-17] MEDS: INSULIN LISPRO 300 UNITS/3 ML VIAL. SQ SCH ×4 (05:50→23:03)
[2020-02-17 07:21] VITALS: BP 112/61
--- NOTE | 2020-02-17 08:50 | PDOC ---
SURGICAL PROGRESS NOTE Subjective tolerating diet full sensation quickly mild pain to LUQ with deep inspiration Vital Signs Vital Signs Date Time Temp Pulse Resp B/P (MAP) Pulse Ox O2 Delivery O2 Flow Rate FiO2 02/17/20 07:21 98.5 73 14 112/61 (78) 97 Room Air 98.5 I&O Intake and Output 02/17/20 07:00 Intake Total 1390 ml Balance 1390 ml Intake Oral 1390 ml # Voids 3 General: Alert, Oriented X3, Cooperative Abdomen: Soft, No tenderness Labs Laboratory Tests Test 02/15/20 11:34 02/15/20 17:42 02/15/20 23:00 02/16/20 06:06 Glucose (Fingerstick) 121 mg/dL (70-99) 130 mg/dL (70-99) 124 mg/dL (70-99) 121 mg/dL (70-99) Test 02/16/20 12:31 02/16/20 17:15 02/16/20 23:54 02/17/20 05:46 Glucose (Fingerstick) 125 mg/dL (70-99) 112 mg/dL (70-99) 136 mg/dL (70-99) 143 mg/dL (70-99) Laboratory Tests Test 02/16/20 12:31 02/16/20 17:15 02/16/20 23:54 02/17/20 05:46 Glucose (Fingerstick) 125 mg/dL (70-99) 112 mg/dL (70-99) 136 mg/dL (70-99) 143 mg/dL (70-99) Assessment/Plan supportive care improving Justicifation of Admission Dx: Justifications for Admission: Justification of Admission Dx: Comment: (hemorrhagic pancreatitis) EDWIN FRIEND AIRCRA[employer] ELECTRICAL [employer] SPECIALIST Feb 17, 2020 08:50
[2020-02-17] MEDS ORDERED: HEPARIN PF 500 UNIT/5 ML DISP.SYRIN. IVP ONE (09:00)
[2020-02-17] MEDS: PANTOPRAZOLE 40 MG TABLET.DR. PO SCH (09:23)
[2020-02-17] MEDS: CYANOCOBALAMIN (VITAMIN B-12) 1,000 MCG TABLET. PO SCH (09:23)
[2020-02-17] MEDS: LUBIPROSTONE 24 MCG CAPSULE PO SCH ×2 (09:23→17:00)
[2020-02-17] MEDS: METOPROLOL TART IMMED RELEASE 25 MG TABLET. PO SCH ×2 (09:24→20:39)
[2020-02-17] MEDS: AMIODARONE HCL 200 MG TABLET. PO SCH (09:24)
[2020-02-17] MEDS: DOCUSATE SODIUM 100 MG CAPSULE. PO SCH ×2 (09:24→19:12)
--- NOTE | 2020-02-17 09:28 | PDOC ---
PROGRESS NOTES Subjective Subjective abd pain after eating meal Objective Objective Vital Signs Date Time Temp Pulse Resp B/P (MAP) Pulse Ox O2 Delivery O2 Flow Rate FiO2 02/17/20 07:21 98.5 73 14 112/61 (78) 97 Room Air 98.5 Intake and Output 02/17/20 07:00 Intake Total 1390 ml Balance 1390 ml Intake Oral 1390 ml # Voids 3 Physical Exam Abdomen: Soft, No tenderness Heart: Regular rate Extremities: No edema General: Alert, Oriented X3, Cooperative HEENT: PERRLA Lungs: Normal air movement MUSCULOSKELETAL: No deformity Neck: Supple Neuro: Normal speech Psych/Mental Status: Mental status NL, Mood NL Skin: No breakdown Assessment Assessment ASSESSMENT/PLAN: CT scan abd and pelvis+ve for developing pseudo cyst 15 cm TPN for now.started on clear liquid diet advanced diet , deescalate diet due to pain ,labs ordered 1. Hemorrhagic pancreatitis with pseudocyst, for which she is now on TPN. 2. Paroxysmal atrial fibrillation, currently in sinus rhythm. Her apixaban was discontinued. 3. Hypertension, seems to be well controlled. 4. Constipation for which she is now on Amitiza. Comment Review of Relevant I have reviewed the following items mine (where applicable) has been applied. Labs Laboratory Tests Test 02/16/20 12:31 02/16/20 17:15 02/16/20 23:54 02/17/20 05:46 Glucose (Fingerstick) 125 mg/dL (70-99) 112 mg/dL (70-99) 136 mg/dL (70-99) 143 mg/dL (70-99) Medications Current Medications Alteplase, Recombinant 5 mg/ Sodium Chloride 30 ml @ 30 mls/hr 1X ONCE IV ; Start 02/17/20 at 09:30; Stop 02/17/20 at 10:29; Status UNV Heparin Sodium (Porcine) (Hep Lock Adult) 500 unit 1X ONCE IVP ; Start 02/17/20 at 09:00; Stop 02/17/20 at 09:02; Status DC Pantoprazole Sodium (Protonix) 40 mg DAILYAC PO ; Start 02/17/20 at 07:30 Sodium Chloride 110 meq/Potassium Acetate 70 meq/ Potassium Phosphate 24 mmol/ Magnesium Sulfate 14 meq/Calcium Gluconate 10 meq/ Multivitamins 10 ml/Chromium/ Copper/Manganese/ Seleni/Zn 1 ml/ Total Parenteral Nutrition/Amino Acids/Dextrose/ Fat Emulsion Intravenous 1,512 ml @ 63 mls/hr TPN CONT IV Last administered on 02/16/20at 21:27; Start 02/16/20 at 22:00; Stop 02/17/20 at 21:59 Vitals/I & O Vital Sign - Last 24 Hours 02/16/20 02/16/20 02/16/20 02/16/20 11:45 15:00 19:00 20:00 Temp 98.4 98.3 98.4 98.4 98.3 98.4 Pulse 63 71 75 Resp 18 16 14 B/P (MAP) 116/70 (85) 118/66 (83) 107/65 (79) Pulse Ox 96 95 97 O2 Delivery Room Air Room Air Room Air Room Air 02/16/20 02/16/20 02/17/20 02/17/20 21:00 23:00 03:00 07:21 Temp 99.0 98.2 98.5 99.0 98.2 98.5 Pulse 75 76 69 73 Resp 16 14 14 B/P (MAP) 107/65 110/51 (70) 101/53 (69) 112/61 (78) Pulse Ox 96 96 97 O2 Delivery Room Air Room Air Room Air Intake and Output 02/16/20 02/16/20 02/17/20 15:00 23:00 07:00 Intake Total 400 ml 600 ml 390 ml Balance 400 ml 600 ml 390 ml Justicifation of Admission Dx: Justifications for Admission: Justification of Admission Dx: Comment: (hemorrhagic pancreatitis) SRAVANI HER MD Feb 17, 2020 09:28
[2020-02-17] MEDS ORDERED: ALTEPLASE 2MG VIAL 5 MG in IV NORMAL SALINE 50ML 30 ML IV ONE (09:30)
[2020-02-17] MEDS ORDERED: ALTEPLASE 1MG SYRINGE. INT CAT ONE (09:45)
[2020-02-17 10:06] LABS: BASO % 1 % (0-3); EOS # 0.7 x10^3/uL (0.0-0.7); EOS % 11 % (0-3); HEMOGLOBIN 9.6 g/dL (12.0-15.5); LYMPH # 1.6 x10^3/uL (1.0-4.8); LYMPH % 26 % (24-48); MEAN CORPUSCULAR HEMOGLOBIN 31 pg (25-35); MEAN CORPUSCULAR HGB CONC 33 g/dL (31-37); MEAN CORPUSCULAR VOLUME 94 fL (79-100); MONO # 0.5 x10^3/uL (0.0-1.1); MONO % 8 % (0-9); NEUT # 3.4 x10^3/uL (1.8-7.7); NEUT % 55 % (31-73); PLATELET COUNT 324 x10^3/uL (140-400); RED BLOOD COUNT 3.09 x10^6/uL (3.50-5.40); RED CELL DISTRIBUTION WIDTH 14.1 % (11.5-14.5); WHITE BLOOD COUNT 6.2 x10^3/uL (4.0-11.0)
--- NOTE | 2020-02-17 10:12 | PDOC ---
Subjective: Subjective: Not feeling great after breakfast - also didn't feel well after eating last night - too much dairy? Ice cream, chocolate Ensure, milk Objective: Vital Signs: Vital Signs Date Time Temp Pulse Resp B/P (MAP) Pulse Ox O2 Delivery O2 Flow Rate FiO2 02/17/20 09:24 73 112/61 02/17/20 07:21 98.5 14 97 Room Air 98.5 Labs: Laboratory Tests Test 02/16/20 12:31 02/16/20 17:15 02/16/20 23:54 02/17/20 05:46 Glucose (Fingerstick) 125 mg/dL 112 mg/dL 136 mg/dL 143 mg/dL Test 02/17/20 09:35 White Blood Count 6.2 x10^3/uL Red Blood Count 3.09 x10^6/uL Hemoglobin 9.6 g/dL Hematocrit 29.0 % Mean Corpuscular Volume 94 fL Mean Corpuscular Hemoglobin 31 pg Mean Corpuscular Hemoglobin Concent 33 g/dL Red Cell Distribution Width 14.1 % Platelet Count 324 x10^3/uL Neutrophils (%) (Auto) 55 % Lymphocytes (%) (Auto) 26 % Monocytes (%) (Auto) 8 % Eosinophils (%) (Auto) 11 % Basophils (%) (Auto) 1 % Neutrophils # (Auto) 3.4 x10^3/uL Lymphocytes # (Auto) 1.6 x10^3/uL Monocytes # (Auto) 0.5 x10^3/uL Eosinophils # (Auto) 0.7 x10^3/uL Basophils # (Auto) 0.0 x10^3/uL PE: GEN: NAD LUNGS: CTAB HEART: RRR ABD: upper abdominal discomfort NEURO/PSYCH: A & O 3 A/P: Pancreatitis w/ pseudocyst -- Not feeling great after full liquids x 2 - will try clears for lunch, continue TPN - can try advancing diet again if tolerates clears. Plan for interval CT in 1-2 weeks. ?home TPN Recheck labs in a.m. Continue PPI, Amitiza. Justicifation of Admission Dx: Justifications for Admission: Justification of Admission Dx: Comment: (hemorrhagic pancreatitis) RONNI BOATENG Feb 17, 2020 10:12
[2020-02-17 10:18] LABS: ALBUMIN 2.4 g/dL (3.4-5.0); ALBUMIN/GLOBULIN RATIO 0.7 (1.0-1.7); CALCIUM 8.3 mg/dL (8.5-10.1); GFR 55.6; POTASSIUM 4.4 mmol/L (3.5-5.1); TOTAL BILIRUBIN 0.3 mg/dL (0.2-1.0); TOTAL PROTEIN 5.7 g/dL (6.4-8.2)
[2020-02-17 11:14] VITALS: BP 113/50
--- NOTE | 2020-02-17 12:07 | PDOC ---
CARDIO Progress Notes Date and Time Date of Service 02/17/2020 Time of Evaluation 1205 Subjective Subjective: No Chest Pain, No shortness of breath, No Palpitations, Other (nausea at times) Vitals Vitals Vital Signs Date Time Temp Pulse Resp B/P (MAP) Pulse Ox O2 Delivery O2 Flow Rate FiO2 02/17/20 11:14 98.4 71 16 113/50 (71) 97 Room Air 98.4 Weight Weight [ ] Input and Output Intake and Output Intake and Output 02/17/20 07:00 Intake Total 1390 ml Balance 1390 ml Intake Oral 1390 ml # Voids 3 Laboratory Labs Laboratory Tests Test 02/16/20 12:31 02/16/20 17:15 02/16/20 23:54 02/17/20 05:46 Glucose (Fingerstick) 125 mg/dL (70-99) 112 mg/dL (70-99) 136 mg/dL (70-99) 143 mg/dL (70-99) Test 02/17/20 09:35 02/17/20 11:45 White Blood Count 6.2 x10^3/uL (4.0-11.0) Red Blood Count 3.09 x10^6/uL (3.50-5.40) Hemoglobin 9.6 g/dL (12.0-15.5) Hematocrit 29.0 % (36.0-47.0) Mean Corpuscular Volume 94 fL (79-100) Mean Corpuscular Hemoglobin 31 pg (25-35) Mean Corpuscular Hemoglobin Concent 33 g/dL (31-37) Red Cell Distribution Width 14.1 % (11.5-14.5) Platelet Count 324 x10^3/uL (140-400) Neutrophils (%) (Auto) 55 % (31-73) Lymphocytes (%) (Auto) 26 % (24-48) Monocytes (%) (Auto) 8 % (0-9) Eosinophils (%) (Auto) 11 % (0-3) Basophils (%) (Auto) 1 % (0-3) Neutrophils # (Auto) 3.4 x10^3/uL (1.8-7.7) Lymphocytes # (Auto) 1.6 x10^3/uL (1.0-4.8) Monocytes # (Auto) 0.5 x10^3/uL (0.0-1.1) Eosinophils # (Auto) 0.7 x10^3/uL (0.0-0.7) Basophils # (Auto) 0.0 x10^3/uL (0.0-0.2) Sodium Level 139 mmol/L (136-145) Potassium Level 4.4 mmol/L (3.5-5.1) Chloride Level 103 mmol/L (98-107) Carbon Dioxide Level 28 mmol/L (21-32) Anion Gap 8 (6-14) Blood Urea Nitrogen 14 mg/dL (7-20) Creatinine 1.0 mg/dL (0.6-1.0) Estimated GFR (Cockcroft-Gault) 55.6 BUN/Creatinine Ratio 14 (6-20) Glucose Level 137 mg/dL (70-99) Calcium Level 8.3 mg/dL (8.5-10.1) Total Bilirubin 0.3 mg/dL (0.2-1.0) Aspartate Amino Transf (AST/SGOT) 81 U/L (15-37) Alanine Aminotransferase (ALT/SGPT) 84 U/L (14-59) Alkaline Phosphatase 60 U/L (46-116) Total Protein 5.7 g/dL (6.4-8.2) Albumin 2.4 g/dL (3.4-5.0) Albumin/Globulin Ratio 0.7 (1.0-1.7) Amylase Level 214 U/L (25-115) Lipase 420 U/L (73-393) Glucose (Fingerstick) 117 mg/dL (70-99) Physical Exam HEENT: Neck Supple W Full Motion Chest: Symmetric LUNGS: Clear to Auscultation Heart: S1S2, RRR (SR) Abdomen: Other (soft ) Extremities: No Edema Neurology: alert, oriented, follow commands Assessment Assessment 1. PAFIB; presently SR with intermittent bursts of afib 2. Hemorrhagic pancreatitis: Eliquis therapy on hold. Hgb stable. 3. Hypertension: Controlled Recommendations Continue Amiodarone for rhythm maintenance Metoprolol for rate control Okay to hold Eliquis. Resume Eliquis when okay from GI, surgical standpoint Supportive care. 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
--- NOTE | 2020-02-17 14:27 | NUR ---
SW following. JOE reviewed chart and spoke with RN and CM. JOE also coordinated care with Prem at [facility] for pt's TPN. Discharge plan remains home with HH from [facility] and TPN through [facility]. Pt on a clear liquid diet today and is not ready for discharge as they are working to advance her diet. SW to continue following.
[2020-02-17] MEDS: TPN PER PHARMACY MC PRN (14:41)
--- NOTE | 2020-02-17 14:41 | NUR ---
Pharmacy TPN Dosing Note S: MICK CAMPOS is a 64 year old F Currently receiving Central Continuous TPN started 02/11/20 B:Pertinent PMH: Pancreatitis Height: 5 feet, 6 inches Weight: 95.7 kg Current diet: CLD LABS: Sodium: 139 Potassium: 4.4 Chloride: 103 Calcium: 8.3 Corrected Calcium: 9.58 Magnesium: 1.9 CO2: 28 SCr: 1 Glucose: 137, 117 Albumin: 2.4 AST: 81 ALT: 84 TPN FORMULA: TPN TYPE: Central Continuous AMINO ACIDS: 60 gm DEXTROSE: 195 gm LIPIDS: 20 gm SODIUM CHLORIDE: 110 mEq POTASSIUM ACETATE: 70 mEq POTASSIUM PHOSPHATE: 24 mmol MAGNESIUM: 14 mEq CALCIUM: 10 mEq MULTIPLE VITAMIN: 10 ml TRACE ELEMENTS: 1 ml TPN PLAN: -Failed full liquids, back to clear liquid diet; continue TPN. -Electrolytes appear WNL and stable, no changes in TPN. -No labs tomorrow due to electrolyte stability. R: Continue TPN @ current rate and above formula. Will monitor electrolytes, glucose, and tolerance to TPN. JUDY LOYA [facility], 02/17/20 [id number]
[2020-02-17 15:07] VITALS: BP 113/52
--- NOTE | 2020-02-17 16:51 | NUR ---
This nurse could not draw blood from the patient's PICC line this morning, administered cathflo per protocol 1x. PICC line is patent, TPN running.
[2020-02-17 19:10] VITALS: BP 114/65
[2020-02-17] MEDS ORDERED: TOTAL PARENTERAL NUTRITION IV SCH (22:00)
[2020-02-17] MEDS ORDERED: [UNRECOGNIZED DRUG - OTHER] IV SCH (22:00)
[2020-02-17] MEDS ORDERED: DEXTROSE 70% IV SCH (22:00)
[2020-02-17] MEDS ORDERED: AMINO ACID IV SCH (22:00)
[2020-02-17 23:04] VITALS: BP 112/62
[2020-02-18 03:00] VITALS: BP 126/63
[2020-02-18] MEDS: INSULIN LISPRO 300 UNITS/3 ML VIAL. SQ SCH ×3 (05:57→19:54)
[2020-02-18 07:39] VITALS: BP 102/62
[2020-02-18] MEDS: LUBIPROSTONE 24 MCG CAPSULE PO SCH ×2 (08:00→17:00)
[2020-02-18] MEDS: DOCUSATE SODIUM 100 MG CAPSULE. PO SCH ×2 (08:46→21:00)
[2020-02-18] MEDS: PANTOPRAZOLE 40 MG TABLET.DR. PO SCH (08:46)
[2020-02-18] MEDS: METOPROLOL TART IMMED RELEASE 25 MG TABLET. PO SCH ×2 (08:47→21:01)
[2020-02-18] MEDS: AMIODARONE HCL 200 MG TABLET. PO SCH (08:47)
[2020-02-18] MEDS: CYANOCOBALAMIN (VITAMIN B-12) 1,000 MCG TABLET. PO SCH (08:47)
--- NOTE | 2020-02-18 09:15 | PDOC ---
EDWIN FRIEND FRONT DESK ATTENDANT 02/18/20 0915: SURGICAL PROGRESS NOTE Subjective had some trouble with full liquids--seemed like the milk, ice cream were the worst tolerated the pudding doing ok with clears today Vital Signs Vital Signs Date Time Temp Pulse Resp B/P (MAP) Pulse Ox O2 Delivery O2 Flow Rate FiO2 02/18/20 08:47 64 102/62 02/18/20 07:39 98.0 16 92 Room Air 98.0 I&O Intake and Output 02/18/20 07:00 Intake Total 1150 ml Balance 1150 ml Intake Oral 1150 ml # Voids 6 General: Alert, Oriented X3, Cooperative Abdomen: Soft, No tenderness Labs Laboratory Tests Test 02/16/20 12:31 02/16/20 17:15 02/16/20 23:54 02/17/20 05:46 Glucose (Fingerstick) 125 mg/dL (70-99) 112 mg/dL (70-99) 136 mg/dL (70-99) 143 mg/dL (70-99) Test 02/17/20 09:35 02/17/20 11:45 02/17/20 18:16 02/17/20 22:53 White Blood Count 6.2 x10^3/uL (4.0-11.0) Red Blood Count 3.09 x10^6/uL (3.50-5.40) Hemoglobin 9.6 g/dL (12.0-15.5) Hematocrit 29.0 % (36.0-47.0) Mean Corpuscular Volume 94 fL (79-100) Mean Corpuscular Hemoglobin 31 pg (25-35) Mean Corpuscular Hemoglobin Concent 33 g/dL (31-37) Red Cell Distribution Width 14.1 % (11.5-14.5) Platelet Count 324 x10^3/uL (140-400) Neutrophils (%) (Auto) 55 % (31-73) Lymphocytes (%) (Auto) 26 % (24-48) Monocytes (%) (Auto) 8 % (0-9) Eosinophils (%) (Auto) 11 % (0-3) Basophils (%) (Auto) 1 % (0-3) Neutrophils # (Auto) 3.4 x10^3/uL (1.8-7.7) Lymphocytes # (Auto) 1.6 x10^3/uL (1.0-4.8) Monocytes # (Auto) 0.5 x10^3/uL (0.0-1.1) Eosinophils # (Auto) 0.7 x10^3/uL (0.0-0.7) Basophils # (Auto) 0.0 x10^3/uL (0.0-0.2) Sodium Level 139 mmol/L (136-145) Potassium Level 4.4 mmol/L (3.5-5.1) Chloride Level 103 mmol/L (98-107) Carbon Dioxide Level 28 mmol/L (21-32) Anion Gap 8 (6-14) Blood Urea Nitrogen 14 mg/dL (7-20) Creatinine 1.0 mg/dL (0.6-1.0) Estimated GFR (Cockcroft-Gault) 55.6 BUN/Creatinine Ratio 14 (6-20) Glucose Level 137 mg/dL (70-99) Calcium Level 8.3 mg/dL (8.5-10.1) Total Bilirubin 0.3 mg/dL (0.2-1.0) Aspartate Amino Transf (AST/SGOT) 81 U/L (15-37) Alanine Aminotransferase (ALT/SGPT) 84 U/L (14-59) Alkaline Phosphatase 60 U/L (46-116) Total Protein 5.7 g/dL (6.4-8.2) Albumin 2.4 g/dL (3.4-5.0) Albumin/Globulin Ratio 0.7 (1.0-1.7) Amylase Level 214 U/L (25-115) Lipase 420 U/L (73-393) Glucose (Fingerstick) 117 mg/dL (70-99) 130 mg/dL (70-99) 132 mg/dL (70-99) Test 02/18/20 05:53 Glucose (Fingerstick) 130 mg/dL (70-99) Laboratory Tests Test 02/17/20 09:35 02/17/20 11:45 02/17/20 18:16 02/17/20 22:53 White Blood Count 6.2 x10^3/uL (4.0-11.0) Red Blood Count 3.09 x10^6/uL (3.50-5.40) Hemoglobin 9.6 g/dL (12.0-15.5) Hematocrit 29.0 % (36.0-47.0) Mean Corpuscular Volume 94 fL (79-100) Mean Corpuscular Hemoglobin 31 pg (25-35) Mean Corpuscular Hemoglobin Concent 33 g/dL (31-37) Red Cell Distribution Width 14.1 % (11.5-14.5) Platelet Count 324 x10^3/uL (140-400) Neutrophils (%) (Auto) 55 % (31-73) Lymphocytes (%) (Auto) 26 % (24-48) Monocytes (%) (Auto) 8 % (0-9) Eosinophils (%) (Auto) 11 % (0-3) Basophils (%) (Auto) 1 % (0-3) Neutrophils # (Auto) 3.4 x10^3/uL (1.8-7.7) Lymphocytes # (Auto) 1.6 x10^3/uL (1.0-4.8) Monocytes # (Auto) 0.5 x10^3/uL (0.0-1.1) Eosinophils # (Auto) 0.7 x10^3/uL (0.0-0.7) Basophils # (Auto) 0.0 x10^3/uL (0.0-0.2) Sodium Level 139 mmol/L (136-145) Potassium Level 4.4 mmol/L (3.5-5.1) Chloride Level 103 mmol/L (98-107) Carbon Dioxide Level 28 mmol/L (21-32) Anion Gap 8 (6-14) Blood Urea Nitrogen 14 mg/dL (7-20) Creatinine 1.0 mg/dL (0.6-1.0) Estimated GFR (Cockcroft-Gault) 55.6 BUN/Creatinine Ratio 14 (6-20) Glucose Level 137 mg/dL (70-99) Calcium Level 8.3 mg/dL (8.5-10.1) Total Bilirubin 0.3 mg/dL (0.2-1.0) Aspartate Amino Transf (AST/SGOT) 81 U/L (15-37) Alanine Aminotransferase (ALT/SGPT) 84 U/L (14-59) Alkaline Phosphatase 60 U/L (46-116) Total Protein 5.7 g/dL (6.4-8.2) Albumin 2.4 g/dL (3.4-5.0) Albumin/Globulin Ratio 0.7 (1.0-1.7) Amylase Level 214 U/L (25-115) Lipase 420 U/L (73-393) Glucose (Fingerstick) 117 mg/dL (70-99) 130 mg/dL (70-99) 132 mg/dL (70-99) Test 02/18/20 05:53 Glucose (Fingerstick) 130 mg/dL (70-99) Assessment/Plan monitor continue TPN Justicifation of Admission Dx: Justifications for Admission: Justification of Admission Dx: Comment: (hemorrhagic pancreatitis) DAVID QUINTERO MD 02/18/20 2201: SURGICAL PROGRESS NOTE Assessment/Plan Pt seen and examined. Agree with Ms. Friend's note Pt doing well, mainly bored. Slowly advancing diet, hgb stable abd soft, ND, NTTP cont supportive care and tentative d/c soon. EDWIN FRIEND APRN Feb 18, 2020 09:15 DAVID QUINTERO MD Feb 18, 2020 22:01
[2020-02-18 10:54] VITALS: BP 121/61
--- NOTE | 2020-02-18 11:36 | PN ---
DATE: 02/18/2020 SUBJECTIVE: The patient is resting slightly propped up in bed, in no apparent respiratory distress. She apparently had difficulty tolerating full liquid diet and she was switched back to clear liquid yesterday afternoon, last night and this morning without any problem. Denied any abdominal pain, has had multiple loose bowel movements this morning. PHYSICAL EXAMINATION: GENERAL: When I examined her, she looked pale, but no jaundice, cyanosis or thyromegaly. No jugular venous distention. No limb edema. VITAL SIGNS: Her heart rate was 64, blood pressure was 102/62, temperature was 98, respiratory rate 16, and oxygen saturation was 92%. HEAD, EYES, EARS, NOSE AND THROAT: Normocephalic, atraumatic. NECK: Supple. HEART: Showed normal first and second heart sounds. No gallop or murmur. CHEST: Shows central trachea, equal bilateral expansion, air entry, vesicular sounds. No crepitation or rhonchi. ABDOMEN: Distended, soft, nontender. NEUROLOGIC: She is awake, alert, responding appropriately. All her cranial nerves intact. She moves extremities without difficulty. She ambulates without assistance or assistive devices. Her intake over the last 24 hours was 1390, no output was recorded. LABORATORY DATA: Showed a white cell count 6200, hemoglobin 10, hematocrit 29, MCV 94, and platelet count 324,000. Her chemistry as of yesterday showed a serum sodium 139, potassium 4.4, chloride 103, bicarbonate 28, anion gap of 8, BUN 14, creatinine 1, estimated GFR was 55 mL per minute. Her glucose 137, calcium was 8.3. Total bilirubin and alkaline phosphatase normal. AST, ALT slightly elevated. Total protein 5.7, albumin 2.4. Serum amylase was 214 and lipase was 420. ASSESSMENT: 1. Hemorrhagic pancreatitis with pseudocyst, for which she is now on TPN. 2. Paroxysmal atrial fibrillation, currently in sinus rhythm. Her apixaban was discontinued. 3. Hypertension, seems to be well controlled. 4. Constipation, resolved. She has had 3 bowel movements this morning. 5. The patient is unable to tolerate or advance her diet. She is only tolerating clear liquid. PLAN: To continue with clear liquid diet and advance as tolerated. Continue with TPN. Continue with Protonix. Continue with amiodarone to control the heart rate and Colace 100 mg twice a day for constipation. Continue with fentanyl for pain management. BRIE RODRIGUEZ MD DR: NOELLE/hector JOB#: [id number] / [id number]
[2020-02-18] MEDS: TPN PER PHARMACY MC PRN (11:52)
--- NOTE | 2020-02-18 12:03 | NUR ---
Pharmacy TPN Dosing Note S: MICK CAMPOS is a 64 year old F Currently receiving Central Continuous TPN started 02/11/20 B:Pertinent PMH: Pancreatitis Height: 5 feet, 6 inches Weight: 95.867999 kg Current diet: CLD LABS: Sodium: 139 Potassium: 4.4 Chloride: 103 Calcium: 8.3 Corrected Calcium: 9.58 Magnesium: 1.9 CO2: 28 SCr: 1 Glucose: 130, 121 Albumin: 2.4 AST: 81 ALT: 84 TPN FORMULA: TPN TYPE: Central Continuous AMINO ACIDS: 60 gm DEXTROSE: 195 gm LIPIDS: 20 gm SODIUM CHLORIDE: 110 mEq POTASSIUM ACETATE: 70 mEq POTASSIUM PHOSPHATE: 24 mmol MAGNESIUM: 14 mEq CALCIUM: 10 mEq MULTIPLE VITAMIN: 10 ml TRACE ELEMENTS: 1 ml ml(s) TPN PLAN: No electrolytes today. Continue same TPN. R: Continue TPN Will monitor electrolytes, glucose, and tolerance to TPN. Agustin Bahc, [facility], 02/18/20 [id number]
[2020-02-18 15:09] VITALS: BP 103/53
[2020-02-18 19:00] VITALS: BP 109/62
[2020-02-18] MEDS ORDERED: [UNRECOGNIZED DRUG - OTHER] IV SCH (22:00)
[2020-02-18] MEDS ORDERED: TOTAL PARENTERAL NUTRITION IV SCH (22:00)
[2020-02-18] MEDS ORDERED: AMINO ACID IV SCH (22:00)
[2020-02-18] MEDS ORDERED: DEXTROSE 70% IV SCH (22:00)
[2020-02-18 23:00] VITALS: BP 101/63
[2020-02-19 03:00] VITALS: BP 104/61
[2020-02-19] MEDS: INSULIN LISPRO 300 UNITS/3 ML VIAL. SQ SCH ×4 (06:00→18:00)
[2020-02-19 06:03] LABS: HEMATOCRIT 28.8 % (36.0-47.0); HEMOGLOBIN 9.6 g/dL (12.0-15.5)
[2020-02-19 06:19] LABS: CALCIUM 8.2 mg/dL (8.5-10.1); GFR 55.6; MAGNESIUM 1.9 mg/dL (1.8-2.4); PHOSPHORUS 3.9 mg/dL (2.6-4.7); POTASSIUM 4.2 mmol/L (3.5-5.1)
[2020-02-19 07:43] VITALS: BP 103/52
[2020-02-19] MEDS: LUBIPROSTONE 24 MCG CAPSULE PO SCH ×2 (08:00→17:00)
[2020-02-19] MEDS: CYANOCOBALAMIN (VITAMIN B-12) 1,000 MCG TABLET. PO SCH (09:06)
[2020-02-19] MEDS: METOPROLOL TART IMMED RELEASE 25 MG TABLET. PO SCH ×2 (09:06→20:55)
[2020-02-19] MEDS: PANTOPRAZOLE 40 MG TABLET.DR. PO SCH (09:06)
[2020-02-19] MEDS: AMIODARONE HCL 200 MG TABLET. PO SCH (09:06)
[2020-02-19] MEDS: DOCUSATE SODIUM 100 MG CAPSULE. PO SCH ×2 (09:06→20:55)
[2020-02-19 11:16] VITALS: BP 114/63
--- NOTE | 2020-02-19 11:36 | PN ---
DATE: 02/19/2020 SUBJECTIVE: The patient is sitting slightly propped up in bed, in no apparent distress, awake, alert. On questioning her, she stated that she has only clear liquid diet this morning, but she will try to advance to full liquid this afternoon. Her pain is well controlled. Denied any nausea or vomiting. Has had no bowel movement this morning. PHYSICAL EXAMINATION: GENERAL: When I examined her, she was pale, no jaundice, cyanosis or thyromegaly. No jugular venous distention. No lower limb edema. VITAL SIGNS: Her heart rate was 62, blood pressure 103/52, temperature 97.9, respiratory rate was 18 and oxygen saturation was 96%. The rest of clinical exam is stable, has not really changed. ABDOMEN: In particular, she has no tenderness, guarding or rigidity. Bowel sounds are normal. Her intake over the last 24 hours was 1150, no output was recorded. LABORATORY DATA: Her H and H this morning was 9.6 and 28.8 and her chemistry showed that her serum sodium 139, potassium 4.2, chloride 105, bicarbonate 26, anion gap of 8, BUN 13, creatinine 1, estimated GFR was 55 mL per minute. Her glucose 120, calcium was 8.2, phosphorus 3.9, and magnesium was 1.9. ASSESSMENT: 1. Hemorrhagic pancreatitis with pseudocyst, for which she is now on TPN. 2. Paroxysmal atrial fibrillation, currently in sinus rhythm. Her apixaban was discontinued. 3. Hypertension, seems to be well controlled. 4. Constipation, resolved. 5. The patient is unable to tolerate or advance her diet. She has had a clear liquid diet this morning. She will attempt to advance her diet this afternoon. Meanwhile, we will continue with TPN. PLAN: Continue with Protonix. Continue amiodarone to control the heart rate and Colace 100 mg twice a day for constipation and fentanyl for pain. BRIE RODRIGUEZ MD DR: NOELLE/hector JOB#: [id number] / [id number]
[2020-02-19] MEDS: TPN PER PHARMACY MC PRN (11:38)
--- NOTE | 2020-02-19 12:02 | PDOC ---
SURGICAL PROGRESS NOTE Subjective Pt feels better, going to try tomato soup for lunch Vital Signs Vital Signs Date Time Temp Pulse Resp B/P (MAP) Pulse Ox O2 Delivery O2 Flow Rate FiO2 02/19/20 11:16 97.9 62 16 114/63 (80) 98 Room Air 97.9 I&O Intake and Output 02/19/20 07:00 Intake Total 480 ml Balance 480 ml Intake Oral 480 ml # Voids 2 General: Alert, Oriented X3, Cooperative, No acute distress Abdomen: Soft, No tenderness Labs Laboratory Tests Test 02/17/20 18:16 02/17/20 22:53 02/18/20 05:53 02/18/20 11:45 Glucose (Fingerstick) 130 mg/dL (70-99) 132 mg/dL (70-99) 130 mg/dL (70-99) 121 mg/dL (70-99) Test 02/18/20 19:54 02/18/20 23:47 02/19/20 05:43 02/19/20 05:50 Glucose (Fingerstick) 156 mg/dL (70-99) 121 mg/dL (70-99) 116 mg/dL (70-99) Hemoglobin 9.6 g/dL (12.0-15.5) Hematocrit 28.8 % (36.0-47.0) Sodium Level 139 mmol/L (136-145) Potassium Level 4.2 mmol/L (3.5-5.1) Chloride Level 105 mmol/L (98-107) Carbon Dioxide Level 26 mmol/L (21-32) Anion Gap 8 (6-14) Blood Urea Nitrogen 13 mg/dL (7-20) Creatinine 1.0 mg/dL (0.6-1.0) Estimated GFR (Cockcroft-Gault) 55.6 Glucose Level 120 mg/dL (70-99) Calcium Level 8.2 mg/dL (8.5-10.1) Phosphorus Level 3.9 mg/dL (2.6-4.7) Magnesium Level 1.9 mg/dL (1.8-2.4) Laboratory Tests Test 02/18/20 19:54 02/18/20 23:47 02/19/20 05:43 02/19/20 05:50 Glucose (Fingerstick) 156 mg/dL (70-99) 121 mg/dL (70-99) 116 mg/dL (70-99) Hemoglobin 9.6 g/dL (12.0-15.5) Hematocrit 28.8 % (36.0-47.0) Sodium Level 139 mmol/L (136-145) Potassium Level 4.2 mmol/L (3.5-5.1) Chloride Level 105 mmol/L (98-107) Carbon Dioxide Level 26 mmol/L (21-32) Anion Gap 8 (6-14) Blood Urea Nitrogen 13 mg/dL (7-20) Creatinine 1.0 mg/dL (0.6-1.0) Estimated GFR (Cockcroft-Gault) 55.6 Glucose Level 120 mg/dL (70-99) Calcium Level 8.2 mg/dL (8.5-10.1) Phosphorus Level 3.9 mg/dL (2.6-4.7) Magnesium Level 1.9 mg/dL (1.8-2.4) Problem List pancreatitis appears to be gradually improving ADAT and work on d/c home will f/u on pseudocyst to consider potential drainage, but hopefully will spontaneously resolve. Justicifation of Admission Dx: Justifications for Admission: Justification of Admission Dx: Comment: (hemorrhagic pancreatitis) DAVID QUINTERO MD Feb 19, 2020 12:02
--- NOTE | 2020-02-19 14:23 | NUR ---
Pharmacy TPN Dosing Note S: MICK CAMPOS is a 64 year old F Currently receiving Central Continuous TPN started 02/11/20 B:Pertinent PMH: Pancreatitis Height: 5 feet, 6 inches Weight: 95.900273 kg Current diet: CLD LABS: Sodium: 139 Potassium: 4.2 Chloride: 105 Calcium: 8.3 Corrected Calcium: 9.58 Magnesium: 1.9 CO2: 28 SCr: 1 Glucose: 120 Albumin: 2.4 AST: 81 ALT: 84 TPN FORMULA: TPN TYPE: Central Continuous AMINO ACIDS: 60 gm DEXTROSE: 195 gm LIPIDS: 20 gm SODIUM CHLORIDE: 110 mEq SODIUM ACETATE: - mEq SODIUM PHOSPHATE: - mmol POTASSIUM CHLORIDE: - mEq POTASSIUM ACETATE: 70 mEq POTASSIUM PHOSPHATE: 24 mmol MAGNESIUM: 14 mEq CALCIUM: 10 mEq INSULIN: - units MULTIPLE VITAMIN: 10 ml TRACE ELEMENTS: 1 ml ml(s) TPN PLAN: no changes in tpn R: CONT TPN AT SAME RATE Will monitor electrolytes, glucose, and tolerance to TPN. ROGERS PAGE [facility], 02/19/20 [id number]
[2020-02-19 15:20] VITALS: BP 100/59
[2020-02-19 19:00] VITALS: BP 107/57
[2020-02-19] MEDS ORDERED: TOTAL PARENTERAL NUTRITION IV SCH (22:00)
[2020-02-19] MEDS ORDERED: DEXTROSE 70% IV SCH (22:00)
[2020-02-19] MEDS ORDERED: [UNRECOGNIZED DRUG - OTHER] IV SCH (22:00)
[2020-02-19] MEDS ORDERED: AMINO ACID IV SCH (22:00)
[2020-02-19 23:00] VITALS: BP 122/60
[2020-02-20 03:00] VITALS: BP 122/78
[2020-02-20] MEDS: INSULIN LISPRO 300 UNITS/3 ML VIAL. SQ SCH ×5 (06:00→23:20)
[2020-02-20 07:00] VITALS: BP 106/52
[2020-02-20 07:04] LABS: ALBUMIN 2.3 g/dL (3.4-5.0); ALBUMIN/GLOBULIN RATIO 0.6 (1.0-1.7); CALCIUM 7.9 mg/dL (8.5-10.1); GFR 55.6; MAGNESIUM 1.7 mg/dL (1.8-2.4); PHOSPHORUS 3.9 mg/dL (2.6-4.7); POTASSIUM 4.2 mmol/L (3.5-5.1); TOTAL BILIRUBIN 0.2 mg/dL (0.2-1.0)
[2020-02-20] MEDS: LUBIPROSTONE 24 MCG CAPSULE PO SCH ×2 (08:00→16:47)
[2020-02-20] MEDS: METOPROLOL TART IMMED RELEASE 25 MG TABLET. PO SCH ×2 (08:19→20:08)
[2020-02-20] MEDS: DOCUSATE SODIUM 100 MG CAPSULE. PO SCH ×2 (08:20→20:06)
[2020-02-20] MEDS: AMIODARONE HCL 200 MG TABLET. PO SCH (08:20)
[2020-02-20] MEDS: PANTOPRAZOLE 40 MG TABLET.DR. PO SCH (08:21)
[2020-02-20] MEDS: CYANOCOBALAMIN (VITAMIN B-12) 1,000 MCG TABLET. PO SCH (08:21)
--- NOTE | 2020-02-20 10:17 | PDOC ---
Subjective: Subjective: Tolerated chicken noodle and tomato soup yesterday but was brought clear liquid tray for breakfast - not sure why. No abd pain, has not needed pain meds. Has questions about interval CT, option for home health/TPN (doesn't want PICC removed and then replaced if symptoms recur). possibility of recurrence, etc. Objective: Vital Signs: Vital Signs Date Time Temp Pulse Resp B/P (MAP) Pulse Ox O2 Delivery O2 Flow Rate FiO2 02/20/20 08:20 64 106/52 02/20/20 08:00 Room Air 02/20/20 07:00 98.1 17 95 98.1 Labs: Laboratory Tests Test 02/19/20 12:06 02/19/20 17:59 02/20/20 06:30 Glucose (Fingerstick) 135 mg/dL (70-99) 178 mg/dL (70-99) 118 mg/dL (70-99) PE: GEN: NAD LUNGS: CTAB HEART: RRR ABD: NABS, S/ND/NT NEURO/PSYCH: A & O 3 A/P: Pancreatitis w/ pseudocyst Recent cholecystectomy Mildly elevated AST and ALT - improved -- Significant time spent. Her questions were answered to her satisfaction. She is improving. Try soup again for lunch - d/w nutrition - no creamy soups. ?DC soon We discussed that ideally would continue to tolerate PO and DC TPN/PICC prior to DC - her preference is to remain inpt today and monitor and she will d/w Dr. Howard. Our office will contact to schedule interval CT/follow-up. Justicifation of Admission Dx: Justifications for Admission: Justification of Admission Dx: Comment: (hemorrhagic pancreatitis) RONNI BOATENG Feb 20, 2020 10:17
[2020-02-20 10:48] VITALS: BP 113/66
--- NOTE | 2020-02-20 11:18 | PDOC ---
SURGICAL PROGRESS NOTE Subjective Pt feels better, has been tolerating diet Vital Signs Vital Signs Date Time Temp Pulse Resp B/P (MAP) Pulse Ox O2 Delivery O2 Flow Rate FiO2 02/20/20 10:48 97.8 59 17 113/66 (82) 95 Room Air 97.8 I&O Intake and Output 02/20/20 07:00 Intake Total 1520 ml Balance 1520 ml Intake Oral 1520 ml # Voids 3 General: Alert, Oriented X3, Cooperative, No acute distress Abdomen: Soft, No tenderness Labs Laboratory Tests Test 02/18/20 11:45 02/18/20 19:54 02/18/20 23:47 02/19/20 05:43 Glucose (Fingerstick) 121 mg/dL (70-99) 156 mg/dL (70-99) 121 mg/dL (70-99) 116 mg/dL (70-99) Test 02/19/20 05:50 02/19/20 12:06 02/19/20 17:59 02/20/20 06:30 Hemoglobin 9.6 g/dL (12.0-15.5) Hematocrit 28.8 % (36.0-47.0) Sodium Level 139 mmol/L (136-145) Potassium Level 4.2 mmol/L (3.5-5.1) Chloride Level 105 mmol/L (98-107) Carbon Dioxide Level 26 mmol/L (21-32) Anion Gap 8 (6-14) Blood Urea Nitrogen 13 mg/dL (7-20) Creatinine 1.0 mg/dL (0.6-1.0) Estimated GFR (Cockcroft-Gault) 55.6 Glucose Level 120 mg/dL (70-99) Calcium Level 8.2 mg/dL (8.5-10.1) Phosphorus Level 3.9 mg/dL (2.6-4.7) Magnesium Level 1.9 mg/dL (1.8-2.4) Glucose (Fingerstick) 135 mg/dL (70-99) 178 mg/dL (70-99) 118 mg/dL (70-99) Test 02/20/20 06:40 Sodium Level 138 mmol/L (136-145) Potassium Level 4.2 mmol/L (3.5-5.1) Chloride Level 105 mmol/L (98-107) Carbon Dioxide Level 24 mmol/L (21-32) Anion Gap 9 (6-14) Blood Urea Nitrogen 13 mg/dL (7-20) Creatinine 1.0 mg/dL (0.6-1.0) Estimated GFR (Cockcroft-Gault) 55.6 BUN/Creatinine Ratio 13 (6-20) Glucose Level 119 mg/dL (70-99) Calcium Level 7.9 mg/dL (8.5-10.1) Phosphorus Level 3.9 mg/dL (2.6-4.7) Magnesium Level 1.7 mg/dL (1.8-2.4) Total Bilirubin 0.2 mg/dL (0.2-1.0) Aspartate Amino Transf (AST/SGOT) 50 U/L (15-37) Alanine Aminotransferase (ALT/SGPT) 68 U/L (14-59) Alkaline Phosphatase 58 U/L (46-116) Total Protein 6.0 g/dL (6.4-8.2) Albumin 2.3 g/dL (3.4-5.0) Albumin/Globulin Ratio 0.6 (1.0-1.7) Triglycerides Level 109 mg/dL (0-150) Lipase 331 U/L (73-393) Laboratory Tests Test 02/19/20 12:06 02/19/20 17:59 02/20/20 06:30 02/20/20 06:40 Glucose (Fingerstick) 135 mg/dL (70-99) 178 mg/dL (70-99) 118 mg/dL (70-99) Sodium Level 138 mmol/L (136-145) Potassium Level 4.2 mmol/L (3.5-5.1) Chloride Level 105 mmol/L (98-107) Carbon Dioxide Level 24 mmol/L (21-32) Anion Gap 9 (6-14) Blood Urea Nitrogen 13 mg/dL (7-20) Creatinine 1.0 mg/dL (0.6-1.0) Estimated GFR (Cockcroft-Gault) 55.6 BUN/Creatinine Ratio 13 (6-20) Glucose Level 119 mg/dL (70-99) Calcium Level 7.9 mg/dL (8.5-10.1) Phosphorus Level 3.9 mg/dL (2.6-4.7) Magnesium Level 1.7 mg/dL (1.8-2.4) Total Bilirubin 0.2 mg/dL (0.2-1.0) Aspartate Amino Transf (AST/SGOT) 50 U/L (15-37) Alanine Aminotransferase (ALT/SGPT) 68 U/L (14-59) Alkaline Phosphatase 58 U/L (46-116) Total Protein 6.0 g/dL (6.4-8.2) Albumin 2.3 g/dL (3.4-5.0) Albumin/Globulin Ratio 0.6 (1.0-1.7) Triglycerides Level 109 mg/dL (0-150) Lipase 331 U/L (73-393) Problem List pancreatitis ADAT and wean off TPN per GI/primary OK to plan d/c in AM Recommend f/u with GI regarding pseudocyst, but would be happy to f/u PRN regarding that cyst if intervention needed/requested. Justicifation of Admission Dx: Justifications for Admission: Justification of Admission Dx: Comment: (hemorrhagic pancreatitis) DAVID QUINTERO MD Feb 20, 2020 11:18
--- NOTE | 2020-02-20 11:42 | PN ---
DATE: 02/20/2020 SUBJECTIVE: The patient is resting, slightly propped up in bed, in no apparent distress. She said that she did very well yesterday on her full liquid diet; however, this morning they brought her again clear liquid diet for some reason. She stated that she has no abdominal pain. She has no nausea, no vomiting. Her bowels are moving and would like to advance her diet and would like to go home without the PICC line or a TPN. PHYSICAL EXAMINATION: GENERAL: When I examined her this morning, she was pale, but no jaundice, cyanosis or thyromegaly. No jugular venous distention. No limb edema. VITAL SIGNS: Her heart rate was 59, blood pressure was 113/66, temperature was 97.8, respiratory rate was 17 and oxygen saturation was 95%. HEAD, EYES, EARS, NOSE AND THROAT: Normocephalic, atraumatic. NECK: Supple. HEART: Showed normal first and second heart sounds. No gallop, rub, or murmur. CHEST: Clear to auscultation. No crepitation or rhonchi. ABDOMEN: Distended, soft, nontender. NEUROLOGIC: She is awake, alert, responding appropriately. All cranial nerves are intact. She moves extremities without difficulty. Her intake was 418, output was not recorded. LABORATORY DATA: As of yesterday, her hemoglobin was 9.6 and hematocrit 28.8. Her chemistry this morning showed a serum sodium of 138, potassium 4.2, chloride 105, bicarbonate 24, anion gap of 9, BUN 13, creatinine 1, and estimated GFR was 55 mL per minute. Her glucose 119, calcium was 7.9, phosphorus 3.9, and magnesium was 1.7. Total bilirubin and alkaline phosphatase were normal. AST, ALT slightly elevated. Her total protein was 6, albumin was 2.3, triglycerides 109, and serum lipase was 331. ASSESSMENT AND PLAN: 1. Hemorrhagic pancreatitis with pseudocyst, for which she is now on TPN. Her lipase is down to 331. 2. Paroxysmal atrial fibrillation, currently in sinus rhythm. Her apixaban was discontinued. She continued to be on amiodarone. 3. Hypertension, seems to be well controlled. 4. Constipation, resolved. The plan is for her to advance her diet and she is able to tolerate that. She can be discharged home without the PICC line and TPN and apparently arrangement has been made for her to have a CT scan repeated in 2 weeks' time. BRIE RODRIGUEZ MD DR: NOELLE/hector JOB#: [id number] / [id number]
--- NOTE | 2020-02-20 12:27 | NUR ---
SW following for discharge planning. SW referred for frequent hospitalizations. Reviewed chart and spoke with RN. Coordinated care with Dr. Howard and met with pt. Pt's diet to be advanced today and if pt tolerates the advancement she can discharge tomorrow, 02/[address] Howard, pt can discharge with PICC and TPN with in-home care from [facility] and [facility] infusion if the diet advancement is not tolerated. Spoke with Prem from [facility] who confirmed she received formulary information sent by this SW and that they are ready to provide the TPN if needed. SW will continue to follow.
[2020-02-20] MEDS: TPN PER PHARMACY MC PRN (13:57)
--- NOTE | 2020-02-20 13:57 | NUR ---
Pharmacy TPN Dosing Note S: MICK CAMPOS is a 64 year old F Currently receiving Central Continuous TPN started 02/11/20 B:Pertinent PMH: Pancreatitis Height: 5 feet, 6 inches Weight: 95.7 kg Current diet: CLD LABS: Sodium: 138 Potassium: 4.2 Chloride: 1.5 Calcium: 7.9 Corrected Calcium: 9.26 Magnesium: 1.7 CO2: 24 SCr: 1 Glucose: 119, 125 Albumin: 2.3 AST: 50 ALT: 68 TPN FORMULA: TPN TYPE: Central Continuous AMINO ACIDS: 60 gm DEXTROSE: 195 gm LIPIDS: 20 gm SODIUM CHLORIDE: 110 mEq POTASSIUM ACETATE: 70 mEq POTASSIUM PHOSPHATE: 24 mmol MAGNESIUM: 14 mEq CALCIUM: 10 mEq MULTIPLE VITAMIN: 10 ml TRACE ELEMENTS: 1 ml TPN PLAN: -Trialing FLD again, continue TPN until diet is tolerated. -Serum magnesium low, will replace outside of TPN. -No changes in TPN. -Serum magnesium tomorrow. R: Continue TPN @ current rate and above formula. Will monitor electrolytes, glucose, and tolerance to TPN. JUDY LOYA [facility], 02/20/20 7013
[2020-02-20] MEDS ORDERED: MAGNESIUM SULFATE 2GM 50 ML IV ONE (14:00)
[2020-02-20 15:00] VITALS: BP 112/54
[2020-02-20 19:20] VITALS: BP 122/46
[2020-02-20] MEDS ORDERED: DEXTROSE 70% IV SCH (22:00)
[2020-02-20] MEDS ORDERED: [UNRECOGNIZED DRUG - OTHER] IV SCH (22:00)
[2020-02-20] MEDS ORDERED: TOTAL PARENTERAL NUTRITION IV SCH (22:00)
[2020-02-20] MEDS ORDERED: AMINO ACID IV SCH (22:00)
[2020-02-20 23:19] VITALS: BP 111/52
[2020-02-21 02:55] VITALS: BP 112/59
[2020-02-21] MEDS: INSULIN LISPRO 300 UNITS/3 ML VIAL. SQ SCH ×2 (06:00→11:59)
[2020-02-21 07:22] VITALS: BP 119/59
[2020-02-21] MEDS: LUBIPROSTONE 24 MCG CAPSULE PO SCH (08:00)
[2020-02-21] MEDS: CYANOCOBALAMIN (VITAMIN B-12) 1,000 MCG TABLET. PO SCH (08:46)
[2020-02-21] MEDS: METOPROLOL TART IMMED RELEASE 25 MG TABLET. PO SCH (08:46)
[2020-02-21] MEDS: PANTOPRAZOLE 40 MG TABLET.DR. PO SCH (08:46)
[2020-02-21] MEDS: AMIODARONE HCL 200 MG TABLET. PO SCH (08:46)
[2020-02-21] MEDS: DOCUSATE SODIUM 100 MG CAPSULE. PO SCH (08:47)
--- NOTE | 2020-02-21 09:45 | PDOC ---
Subjective: Subjective: Ate sausage and pancakes and eggs for breakfast - not entire tray. Was surprised this is what she was brought to eat - tolerating so far. Says she discussed w/ nutrition this morning and plans to go back to soup for lunch. Again w/ concerns about TPN/PICC - wonders why she's still getting TPN if she's eating - also would like to leave PICC in for a few days in case she doesn't do well at home. Stooling. Objective: Objective: Reviewed chart - questions about resuming Eliquis. Vital Signs: Vital Signs Date Time Temp Pulse Resp B/P (MAP) Pulse Ox O2 Delivery O2 Flow Rate FiO2 02/21/20 08:46 63 119/59 02/21/20 07:22 98.2 18 98 Room Air 98.2 Labs: Laboratory Tests Test 02/20/20 11:23 02/20/20 18:12 02/21/20 06:10 02/21/20 06:11 Glucose (Fingerstick) 125 mg/dL 138 mg/dL 120 mg/dL Magnesium Level 1.9 mg/dL PE: GEN: NAD LUNGS: CTAB HEART: RRR ABD: mild RUQ/epigastric discomfort, soft, NABS NEURO/PSYCH: A & O 3 A/P: Pancreatitis w/ pseudocyst Recent cholecystectomy Mildly elevated AST and ALT - improved -- Her preference is to remain at full liquids w/ soups - will change diet order again to reflect this. Will stop TPN. Discussed yesterday rationale of removing PICC prior to DC - defer this to primary. D/w Dr. Nobles - would not resume Eliquis - at most ASA. DC per primary. Follow-up for interval CT scan - our office will contact. Discussed all with nurse. Justicifation of Admission Dx: Justifications for Admission: Justification of Admission Dx: Comment: (hemorrhagic pancreatitis) RONNI BOATENG Feb 21, 2020 09:44
[2020-02-21 11:20] VITALS: BP 99/58
--- NOTE | 2020-02-21 11:27 | SNU/HH DC ---
DISCHARGE WITH HOME HEALTH DISCHARGE INFORMATION: Discharge Date: Feb 21, 2020 Final Diagnosis: Hemorrhagic pancreatitis paroxysmal atrial fibrillation Condition on Discharge: Stable CODE STATUS: Code Status: Full HOME HEALTH: Face to Face: I certify this patient is under my care and that I, or a nurse practitioner or physician's assistant center manager working with me, had a face to face encounter that meets the physician face to face encounter requirements with this patient on 02/21/20 Medical Complications: Other Retirement For: Admin/Educate Injections RN For Eval/Treatment: Yes Physical Therapy For: Evalulation/Treatment Occupational Therapy For: Evaluation/Treatment Pt Meets Homebound Status: Poor coordination w/ amb. POST DISCHARGE ORDERS: Activity Instructions for Disc: Activity as tolerated DIET AFTER DISCHARGE: Regular Wound/Incision Care: Change dressing TREATMENT/EQUIPMENT ORDERS: Adaptive Equipment Issued: None Infusion Equipment, home use: PICC Line CERTIFICATION STATEMENT: Certification Statement: Certification Statement: Based on the above finding, I certify that this patient is confined to the home and needs intermittent mcc care, physical therapy and/or speech therapy, or continues to need occupational therapy.~ This patient is under my care, and I have initiated the establishment of the plan of care.~ This patient will be followed by myself or a community physician who will periodically review the plan of care. Home Meds Active Scripts Lactobacillus Rhamnosus Gg (CULTURELLE) 1 Each Cap.sprink, 1 CAP PO BID for SUPPLEMENT for 30 Days, #60 CAP Prov:FLAKITA BOCANEGRA MD 01/14/20 Pantoprazole Sodium (PANTOPRAZOLE SODIUM ) 40 Mg Tablet.dr, 40 MG PO DAILYAC for GERD for 30 Days, #30 TAB.SR Prov:FLAKITA BOCANEGRA MD 01/14/20 Docusate Sodium (DOK) 100 Mg Capsule, 100 MG PO BID for STOOLS for 30 Days, #60 CAP Prov:FLAKITA BOCANEGRA MD 01/14/20 Oxycodone/Apap 5-325 (PERCOCET 5-325 MG TABLET ) 1 Each Tablet, 1 TAB PO PRN Q4HRS PRN for MILD PAIN, 1ST CHOICE for 7 Days, #30 TAB Prov:FLAKITA BOCANEGRA MD 01/14/20 Metoprolol Tartrate (METOPROLOL TARTRATE) 50 Mg Tablet, 50 MG PO BID for HEART for 30 Days, #60 TAB Prov:FLAKITA BOCANEGRA MD 01/14/20 Amiodarone Hcl (AMIODARONE HCL) 200 Mg Tablet, 200 MG PO DAILY for HEART RHYTHM for 30 Days, #30 TAB Prov:FLAKITA BOCANEGRA MD 01/14/20 Reported Medications Vitamin E Acetate (VITAMIN E) 400 Unit Capsule, 400 UNIT PO TWICE WEEKLY for supplement, CAP 01/06/20 Biotin (Biotin) 5,000 Mcg Tab.rapdis, 20027 MCG PO TWICE WEEKLY for supplement, TAB 01/06/20 Ca Carb & Gluc/Mag Ox & Gluc (CALCIUM MAGNESIUM CAPLET) 1 Each Tablet, 1 TAB PO DAILY for supplement for 30 Days, #30 TAB 0 Refills 01/06/20 Selenium (SELENIUM) 200 Mcg Capsule, 1 CAP PO DAILY for supplement for 30 Days, #30 CAP 0 Refills 01/06/20 [place]-3 Fatty Acids/Fish Oil (FISH OIL 1,000 MG SOFTGEL) 1 Each Capsule, 4 CAP PO DAILY for supplement for 30 Days, #120 CAP 0 Refills 01/06/20 Cranberry Extract (CRANBERRY) 250 Mg Capsule, 250 MG PO DAILY for supplement, CAP 01/06/20 Multivits,Stress Formula (STRESS FORMULA) 1 Each Tablet, 1 EACH PO DAILY for supplement, TAB 01/06/20 Cyanocobalamin (Vitamin B-12) (VITAMIN B-12) 1,000 Mcg Tablet, 1 TAB PO DAILY for supplement for 30 Days, #30 TAB 0 Refills 01/06/20 Zn-Kmoq-Eqbd/Iron/Folic/K1/Lut (Abc Complete Senior Women Cplt) 1 Each Tablet, 1 EACH PO DAILY for supplement, TAB 01/06/20 Lysine (LYSINE) 1,000 Mg Tablet, 1000 MG PO DAILY for supplement, TAB 01/06/20 Aspirin (ASPIRIN) 81 Mg Tab.chew, 1 TAB PO DAILY for prevention, #30 TAB 3 Refills 01/06/20 Fenofibrate (FENOFIBRATE) 160 Mg Tablet, 1 TAB PO DAILY for triglycerides, #30 TAB 5 Refills 01/06/20 Discontinued Scripts Apixaban (ELIQUIS) 5 Mg Tablet, 5 MG PO BID for HEART for 30 Days, #60 TAB Prov:FLAKITA BOCANEGRA MD 01/14/20 BRIE RODRIGUEZ MD Feb 21, 2020 11:27
--- NOTE | 2020-02-21 11:48 | PDOC ---
CARDIO Progress Notes Date and Time Date of Service 02/21/2020 Time of Evaluation 13886 Subjective Subjective: No Chest Pain, No shortness of breath, No Palpitations, Other Vitals Vitals Vital Signs Date Time Temp Pulse Resp B/P (MAP) Pulse Ox O2 Delivery O2 Flow Rate FiO2 02/21/20 11:20 98.3 67 18 99/58 (72) 98 Room Air 98.3 Weight Weight [ ] Input and Output Intake and Output Intake and Output 02/21/20 07:00 Intake Total 1150 ml Balance 1150 ml Intake Oral 1150 ml # Voids 3 Laboratory Labs Laboratory Tests Test 02/20/20 18:12 02/21/20 06:10 02/21/20 06:11 02/21/20 11:10 Glucose (Fingerstick) 138 mg/dL (70-99) 120 mg/dL (70-99) 126 mg/dL (70-99) Magnesium Level 1.9 mg/dL (1.8-2.4) Physical Exam HEENT: Neck Supple W Full Motion Chest: Symmetric LUNGS: Clear to Auscultation Heart: S1S2, RRR (SR) Abdomen: Other (soft ) Extremities: No Edema Neurology: alert, oriented, follow commands Assessment Assessment 1. PAFIB; mainating SR. 2. Hemorrhagic pancreatitis: Hgb stable 3. Hypertension: Controlled Recommendations Continue Amiodarone and metoprolol No eliquis per GI. Poor candidate for NOAC with GI issues. Continue ASA for stroke prevention Follow up with Dr. Hayes as shceduled. Justicifation of Admission Dx: Justifications for Admission: Justification of Admission Dx: Comment: (hemorrhagic pancreatitis) PIA [employer]IST Feb 21, 2020 11:48
--- NOTE | 2020-02-21 12:31 | DS ---
DATE OF DISCHARGE: 02/21/2020 HOSPITAL COURSE: The patient is a 64-year-old female patient who was admitted with severe abdominal pain and chest pain, mostly in the left upper quadrant epigastric area that is aggravated by moving and taking a deep breath. She apparently has been followed before by Dr. Nobles, has had cholecystectomy on 01/13/2020. At that time, she was also diagnosed with acute pancreatitis and had cardiac arrhythmias, followed by Dr. Hayes in the Emergency Room. She was found to be anemic with normochromic normocytic anemia. Her serum lipase was extremely high at 2400. D-dimer was high also at 5.39 and had a chest x-ray, which showed no confluent infiltrate. No evidence of obstruction. CT scan of the chest, abdomen and pelvis with contrast, finding showed that she has heterogeneous hypoattenuating collection, occupies the site of the pancreas duct and deep tail consistent with hemorrhagic pancreatitis. It measures about 14 x 7 cm. She was basically transferred to [facility] We did consult the conduit mechanic, the draftsperson as well as surgical team. She was kept n.p.o. She had a PICC line, started on TPN. Her pain was initially severe, but eventually resolved. She has also constipation that has resolved. She was started on a clear liquid diet and her diet was advanced to full liquid diet and decision was made to discharge her home with home health to continue on regular diet that she can tolerate. The plan is to keep her PICC line for at least a week or 10 days to see whether she would be able to eat enough. Obviously, if she continued to have problems with poor oral intake, we might have to restart her back on TPN. Otherwise, if everything went well, she will have an appointment with Gastroenterology team in 2 weeks' time to repeat her CT scan of the abdomen and pelvis. PHYSICAL EXAMINATION: GENERAL: When I saw her this afternoon, she looked pale, no jaundice, cyanosis or thyromegaly. No jugular venous distention. No lower limb edema. VITAL SIGNS: Her heart rate was 63, blood pressure was 119/59, temperature 98.2, respiratory rate was 18 and oxygen saturation was 98%. HEAD, EYES, EARS, NOSE AND THROAT: Showed normocephalic, atraumatic. NECK: Supple. HEART: Showed normal first and second heart sounds with no gallop, rub or murmur. CHEST: Clear to auscultation. No crepitation or rhonchi. ABDOMEN: Distended, soft, nontender. NEUROLOGIC: She is grossly intact. She ambulates without assistance or assistive devices. Her intake over the last 24 hours was 1600, no output was recorded. LABORATORY DATA: Her most recent lab work showed hemoglobin of 9.6, hematocrit 28.8 with normal white cell count and platelets. Her chemistry as of yesterday showed a serum sodium 138, potassium 4.2, chloride 105, bicarbonate 24, anion gap of 9, BUN 13, creatinine 1, estimated GFR was 55 mL per minute. Her glucose 119, calcium was 7.9, phosphorus was 3.9, and magnesium was 1.7. Total bilirubin and alkaline phosphatase normal. AST, ALT slightly elevated. Total protein 6, albumin 2.3 and serum lipase is down to normal ____. DISCHARGE MEDICATIONS: The patient will be discharged home to continue on her amiodarone 200 mg once a day, aspirin 81 mg once a day, Biotin 5000-mcg tablet twice a week, calcium-magnesium tablet 1 tablet daily, cranberry extract 250 mg daily, cyanocobalamin for B12 1000-mcg tablet once a day, Colace 100 mg twice a day, fenofibrate 160 mg daily, lactobacillus rhamnosus 1 capsule twice a day, lysine 1000 mg once a day, metoprolol 50 mg twice a day, multivitamin 1 tablet once a day, omega-3 fatty acid 1 tablet once a day. She is on oxycodone/APAP 5/325 one tablet every 4 hours as needed, Protonix 40 mg once a day, selenium 200 mcg once a day and vitamin A 400 units twice weekly. We discontinued her apixaban. FINAL DISCHARGE DIAGNOSES: 1. Hemorrhagic pancreatitis with pseudocyst. The patient's lipase is down to normal at 331. The patient is pain-free and tolerating her full liquid diet. 2. Paroxysmal atrial fibrillation, currently in sinus rhythm. Her apixaban was discontinued. She continued to be on amiodarone. 3. Hypertension, seems to be well controlled. 4. Constipation, resolved. The plan is to advance her diet, will be discharged home with home health. Her PICC line will be kept for at least 7-10 days. If she obviously is not eating enough, she probably has to go back on TPN. She has an appointment to see Dr. Nobles in 2 weeks' time to repeat her CT scan of the abdomen and also follow up with her draftsperson. BRIE RODRIGUEZ MD DR: NOELLE/hector JOB#: [id number] / [id number]
--- NOTE | 2020-02-21 14:19 | NUR ---
Discharge Note: MICK CAMPOS J6 [facility] Discharge instructions and discharge home medications reviewed with Patient and a copy given. All questions have been answered and understanding verbalized. The following instructions and handouts were given: patient visit report, medication information, education. Discontinued lines and drains: PICC line dressing changed and intact. Patient discharged to home with home health via private vehicle. Patient left unit awake, in stable condition, with all personal belongings.
--- NOTE | 2020-02-21 15:56 | NUR ---
JOE reviewed chart and spoke with RN. JOE met with pt and coordinated care with Dr. Howard. Discharge orders received. TPN discontinued but pt wants to keep the PICC line in incase she needs to resume TPN. JOE notified Prem with [facility] and they can get orders out-patient if pt should need TPN. Pt has contact information for [facility]. Pt stated she would like HH from [place] instead of [facility] as she remembered this was her HH provider in the past. JOE phoned and faxed orders for PICC care to [facility] with [facility], , (fax). Nancy confirmed orders were received and that they can meet pt's needs. Pt on room air and oral medications. Pt to discharge home via transport from spouse. Patient Choice of Vendor form completed. No further SW needs at this time.
== END 2020-02-21 13:30 | disposition home health service (06) | DRG 438 ==
LOC: 6 SOUTH 09:45
PROVIDERS: ADMIT Internal Medicine; ATTEND Internal Medicine
PROC: 02HV33Z Insertion of Infusion Device into Superior Vena Cava, Percutaneous Approach (ICD-10-PCS; principal; 2020-02-11)
DX: K85.90 Acute pancreatitis without necrosis or infection, unspecified (principal); E43 Unspecified severe protein-calorie malnutrition; K86.3 Pseudocyst of pancreas; I47.1 Supraventricular tachycardia; R18.8 Other ascites; Z68.34 Body mass index [BMI] 34.0-34.9, adult; D64.9 Anemia, unspecified; E78.5 Hyperlipidemia, unspecified; I12.9 Hypertensive chronic kidney disease with stage 1 through stage 4 chronic kidney disease, or unspecified chronic kidney disease; I48.0 Paroxysmal atrial fibrillation; I51.9 Heart disease, unspecified; K21.0 Gastro-esophageal reflux disease with esophagitis; G89.29 Other chronic pain; K57.90 Diverticulosis of intestine, part unspecified, without perforation or abscess without bleeding; Z96.651 Presence of right artificial knee joint; K64.9 Unspecified hemorrhoids; K59.00 Constipation, unspecified; N18.9 Chronic kidney disease, unspecified; Z82.0 Family history of epilepsy and other diseases of the nervous system; Z82.49 Family history of ischemic heart disease and other diseases of the circulatory system; Z90.49 Acquired absence of other specified parts of digestive tract; Z83.3 Family history of diabetes mellitus; Z90.710 Acquired absence of both cervix and uterus; Z79.899 Other long term (current) drug therapy
CPT/HCPCS: 36415; 36569; 71045; 74177; 80048; 80053; 82150; 82962; 83690; 83735; 84100; 84478; 85014; 85018; 85025; 85027; C9113; J0610; J1815; J2405; J2997; J3010; J3475; J3480; J3490; J7030; Q9967; 97110-GP; 97116-GP; 97530-GO; 97535-GO; G0378